=== PATIENT | male | born 1955 | race Caucasian/White ===

== ENCOUNTER 2020-12-25 09:26 | Outpatient (NON) | payer BC, SELFPAY ==
[2020-12-25 18:27] LABS: SARS-CoV-2 RNA PCR Negative
== END 2020-12-25 09:27 ==
PROVIDERS: Family Provider Physician Assistant; PCP Physician Assistant; Visit Provider Physician Assistant
DX: Z20.822 Contact with and (suspected) exposure to COVID-19 (principal); R43.2 Parageusia
CPT/HCPCS: C9803; U0003; U0005

== ENCOUNTER 2020-12-29 08:40 | Outpatient (CLI) | payer BC, SELFPAY ==
--- NOTE | 2021-01-22 17:24 | WPDHOMESLEEP ---
Sleep Study - Home Unattended Date of Study: 12/29/20 Ordering Provider: Garfield Cunha, TREVON Interpreting Provider: Ara Carbajal MD Home Sleep Study Type: Apnea Link Air Height: 1.88 m Weight: 106.594 kg Body Mass Index: 30.2 [place]: 17 Reason for Sleep Study Hypersomnolence Sleep History Will Woodward is a 65-year-old man who dozes off at work. He falls asleep at home during the day. 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 This excessive sleepiness has been going on for 1-2 years. He has a difficult time waking in the morning. He had surgery for sleep apnea around 1987. He frequently snores and is frequently loud enough that others complain about it. He occasionally awakens at night with heartburn, belching or coughing, does not awaken from sleep feeling short of breath. He frequently has trouble sleeping with a cold. He does not wake up gasping for breath at night. He occasionally has breathing problems at night observed by others. He does not sweat excessively at night and does not notice his heart pounding or beating irregularly at night. He frequently falls asleep during the day, frequently involuntarily but never while driving. He does not fall asleep during physical effort. He does not have loss of muscle tone was strong emotion. He occasionally has daytime difficulties due to his excessive sleepiness. He does not feel paralyzed on waking or falling asleep. He does not have vivid dreamlike scenes upon awakening or falling asleep. He does not feel afraid to go to sleep. He rarely has nightmares. He occasionally remembers his dreams. He does not have racing thoughts. He does not feel sad or depressed. He rarely has anxiety. He does not have muscular tension. He does not notice parts of his body jerking. He does not kick at night. He frequently has crawling and aching feelings in his legs which he attributes to his neuropathy. He occasionally has leg pain at night. He does not have morning jaw pain. He does not grind his teeth during sleep. He occasionally has bothered by pain during the day, occasionally is awakened by pain at night. He frequently wakes up feeling stiff in the morning, occasionally with sore achy muscles occasionally with pain in the neck and spine. He has fatigue, sexual problems, memory problems, nightmares, headaches and he takes antacids regularly. He reports 25 lb weight gain in the last year. His normal bedtime is 9:00 p.m. falling asleep quickly waking once at night to urinate. He wakes in the morning at 4:10 a.m.. On weekends he goes to bed later, 10:00 p.m. and wakes between 830 and 9:00 a.m.. He estimates 6 hours of sleep on most nights. He does take naps in the afternoon or evening. A short nap may not be refreshing. He rarely awakens feeling refreshed. Habits: Never smoked; no caffeine, does not drink alcohol or use recreational drugs. [facility] Past Medical History Medical History (Updated 01/22/21 @ 17:47 by Ara Carbajal MD) Carpal tunnel syndrome on both sides Coronary artery sclerosis GERD (gastroesophageal reflux disease) History of umbilical hernia Hyperlipidemia Hypertension Lumbosacral radiculopathy Lung metastases from renal cell carcinoma, left lung wedge resection Obstructive sleep apnea (~12/2020) Peripheral neuropathic pain Renal cell carcinoma Varicose veins of lower extremity Surgical History Surgical History History of knee replacement History of nephrectomy, right History of thoracic surgery left lung, wedge resection Family History Family History (Updated 01/22/21 @ 17:37 by Ara Carbajal MD) Mother Carcinoma of colon age 84 Father Carcinoma of colon age 80 Social History Social History (Updated 01/22/21 @ 17:43 by Ara Carbajal MD) Smoking status: Never smoker Medications Medications: aspirin 81 mg a day tadalafil / Cial
[2021-01-22 17:48] VITALS: BMI 30.2
== END 2020-12-29 08:41 | disposition home or self-care (01) ==
LOC: ANHCSM 08:43
PROVIDERS: Family Provider Physician Assistant; PCP Physician Assistant; Visit Provider Physician Assistant
DX: G47.33 Obstructive sleep apnea (adult) (pediatric) (principal)
CPT/HCPCS: 95806

== ENCOUNTER → 2021-02-16 02:16 | Outpatient (CLI) | payer BC, SELFPAY ==
[2021-02-16 19:28] LABS: SARS-CoV-2 RNA PCR Negative
== END ==
PROVIDERS: PCP Physician Assistant; Visit Provider Internal Medicine Critical Care Medicine
DX: Z01.812 Encounter for preprocedural laboratory examination (principal); Z20.822 Contact with and (suspected) exposure to COVID-19
CPT/HCPCS: C9803; U0003; U0005

== ENCOUNTER 2021-02-19 09:03 | Outpatient (CLI) | payer BC, SELFPAY ==
--- NOTE | 2021-03-05 10:33 | WPDSLEEPSTUD ---
Sleep Study Ordering Provider: Garfield Cunha, TREVON Interpreting Physician: Buddy Ayala MD Sleep Study Type: CPAP Titration Height: 1.88 m Weight: 104.326 kg Body Mass Index: 29.5 Neck Circumference (inches): 17 [place]: 15 Reason for Sleep Study Patient has had a prior home sleep study in December of 2020 which documented presence of severe obstructive sleep apnea. About 8% of the event's were central or mixed variety. Patient also had severe desaturations during the study. Therefore in lab CPAP titration was recommended. Sleep History Patient has history of loud snoring that is disruptive to others and he notices severe disabling daytime sleepiness. [facility] Past Medical History Medical History (Updated 01/22/21 @ 17:47 by Ara Carbajal MD) Carpal tunnel syndrome on both sides Coronary artery sclerosis GERD (gastroesophageal reflux disease) History of umbilical hernia Hyperlipidemia Hypertension Lumbosacral radiculopathy Lung metastases from renal cell carcinoma, left lung wedge resection Obstructive sleep apnea (~12/2020) Peripheral neuropathic pain Renal cell carcinoma Varicose veins of lower extremity Surgical History Surgical History History of knee replacement History of nephrectomy, right History of thoracic surgery left lung, wedge resection Family History Family History (Updated 01/22/21 @ 17:37 by Ara Carbajal MD) Mother Carcinoma of colon age 84 Father Carcinoma of colon age 80 Social History Social History (Updated 01/22/21 @ 17:43 by Ara Carbajal MD) Smoking status: Never smoker Sleep Procedure Patient underwent an overnight polysomnographic evaluation for the purpose of CPAP titration. Patient used Res Zigswitch air fit F-20 full face mask of medium size. Sleep Architecture total recording time 391 minutes, total sleep time 297 minutes, sleep efficiency 75.9%. Sleep latency 17 minutes, there was no REM sleep in this study. Awake after sleep onset 77.5 minutes, stage N1 10.9%, N2 89.1%, stage N3 and stage R 0%. Supine sleep 81%. Respiratory Analysis CMS criteria used During titration patient had 1 obstructive apnea with index 0.2, there were 13 hypopneas with index 2.6. AHI 2.8. supine events 3.5, nonsupine events 0. Arousals Total arousals 94 with index 14.4. Spontaneous arousals 78, limb movement arousals 7, snores arousals 7 and hypopnea arousals 2. Periodic Limb Movements Two hundred six leg movements with index 41.6. However only 7 were associated with arousal so that the arousal index is 1.1 which is not significant. There were no PLMS. Oximetry Data Mean oxygen saturation 90.2%, lowest saturation 83% .SaO2<90%-52.7Min, SaO2<88%-6.4Min. Snoring Profile Intermittent snoring noted. Cardiac Profile Normal sinus rhythm with average heart rate 61 beats per minute. Range 39 to 147 beats per minute. EEG Profile Unremarkable EEG. 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 CPAP was started at 5 cm and was increased to a maximum level of 9 cm. At CPAP of 9 cm - 2 hours and 53 minutes of trial was performed, 1 hour and 51 minutes of non-REM sleep occurred,approximately half of it was in supine position. There was no REM sleep. The sleep efficiency was 64%. Patient had 2 hypopneas with apnea-hypopnea index of 1.1. Average saturation was 90.3%, lowest saturation was 86%. 0.7 minutes of sleep occurred with saturation of 88% or below. The lack of REM sleep during this study is of concern since on many occasions sleep disorder is worse during REM sleep. Recommendation- we would recommend using CPAP in a auto titrating mode with a range of 9-15 cm. Hopefully this will eliminate any obstructive events that may occur during REM sleep. Other stephanie
[2021-03-05 10:53] VITALS: BMI 29.5
== END 2021-02-19 09:04 | disposition home or self-care (01) ==
LOC: ANHCSM 09:04
PROVIDERS: PCP Physician Assistant; Visit Provider Physician Assistant
DX: G47.33 Obstructive sleep apnea (adult) (pediatric) (principal)
CPT/HCPCS: 95811

== ENCOUNTER → 2021-11-06 03:33 | Outpatient (CLI) | payer BC, SELFPAY ==
[2021-11-06 20:27] LABS: SARS-CoV-2 RNA PCR Negative
== END ==
PROVIDERS: PCP Physician Assistant; Visit Provider Physician Assistant
DX: R68.89 Other general symptoms and signs (principal); Z20.822 Contact with and (suspected) exposure to COVID-19
CPT/HCPCS: C9803; U0003; U0005

== ENCOUNTER → 2021-12-15 02:40 | Outpatient (CLI) | payer BC, SELFPAY ==
[2021-12-16 15:56] LABS: SARS-CoV-2 RNA PCR Negative
== END ==
PROVIDERS: PCP Physician Assistant; Visit Provider Physician Assistant
DX: R43.2 Parageusia (principal); Z20.822 Contact with and (suspected) exposure to COVID-19
CPT/HCPCS: C9803; U0003; U0005

== ENCOUNTER 2022-11-08 01:30 | Day surgery (SDC) | payer BC, SELFPAY ==
[2022-09-06 13:27] VITALS: BMI 29.5
[2022-11-01 14:06] VITALS: BMI 29.5
[2022-11-08 08:14] VITALS: BP 137/69; PULSE 56; RESP 17; TEMP 36.4; O2SAT 98; BMI 28.6
[2022-11-08] MEDS: LACTATED RINGERS 1,000 ML 150 ML IV CONT (08:24)
--- NOTE | 2022-11-08 08:41 | PM.HPGS ---
History of Present Illness History of Present Illness Consent: Risks, benefits, and alternatives have been discussed and questions answered. Patient agrees to proceed with procedure. Chief complaint: family hx colon ca, neoplasm screening Narrative: Will Woodward is a 67 year old male Presents for screening colonoscopy. Patient's mother and father both have had colon cancer. Patient reports his current weight appetite bowel movements are normal. He denies abdominal pain. He has had no bleeding. Does notice a bump that has developed at his anal area. Review of Systems Review of Systems: Review of systems noncontributory. [facility] Past Medical History Medical History (Updated 11/08/22 @ 08:43 by Orlin Pearson MD) Carpal tunnel syndrome on both sides Coronary artery sclerosis GERD (gastroesophageal reflux disease) History of umbilical hernia Hyperlipidemia Hypertension Lumbosacral radiculopathy Lung metastases from renal cell carcinoma, left lung wedge resection Obstructive sleep apnea (~12/2020) Peripheral neuropathic pain Renal cell carcinoma Varicose veins of lower extremity Surgical History Surgical History History of knee replacement History of nephrectomy, right History of thoracic surgery left lung, wedge resection Family History Family History (Updated 01/22/21 @ 17:37 by Ara Carbajal MD) Mother Carcinoma of colon age 84 Father Carcinoma of colon age 80 Social History Social History (Updated 01/22/21 @ 17:43 by Ara Carbajal MD) Smoking status: Never smoker Substance use type: does not use Living arrangements: with family Spiritual care concerns: No Meds Home Medications and Allergies Home Medications Medication Instructions Recorded Confirmed Type sodium,potassium,mag sulfates 17.5 See Rx Instructions PO .COMPLEX 08/20/22 11/01/22 Rx gram-3.13 gram-1.6 gram oral soln #354 mL (Suprep Bowel Prep Kit) Adult One Daily Multivitamin 1 tablet PO HS 09/06/22 11/01/22 History amlodipine 5 mg tablet 5 mg PO DAILY 09/06/22 11/01/22 History aspirin 81 mg tablet 81 mg PO DAILY 09/06/22 11/01/22 History duloxetine 30 mg capsule,delayed 30 mg PO BID 09/06/22 11/01/22 History release gabapentin 300 mg capsule 900 mg PO TID 09/06/22 11/01/22 History hydrochlorothiazide 25 mg tablet 25 mg PO DAILY 09/06/22 11/01/22 History melatonin 5 mg tablet 5 mg PO HS PRN Insomnia 09/06/22 11/01/22 History metoprolol tartrate 50 mg tablet 50 mg PO BID 09/06/22 11/01/22 History pantoprazole 20 mg tablet,delayed 20 mg PO BID 09/06/22 11/01/22 History release rosuvastatin 20 mg tablet 20 mg PO EVERY OTHER DAY 09/06/22 11/01/22 History rosuvastatin 40 mg tablet 40 mg PO EVERY OTHER DAY 09/06/22 11/01/22 History tadalafil 5 mg tablet 5 mg PO DAILY PRN other 09/06/22 11/01/22 History vitamin B complex 1 tablet PO HS 09/06/22 11/01/22 History Allergies Allergy/AdvReac Type Severity Reaction Status Date / Time No Known Allergies Allergy Mild Verified 11/01/22 14:06 Vital Signs Vital Signs - 24 hr 11/08/22 08:14 Temperature 97.6 F Pulse Rate 56 L Respiratory Rate 17 Blood Pressure 137/69 Pulse Oximetry 98 Oxygen Delivery Room Air Exam Narrative: Physical exam reveals patient to be alert. Vital signs stable. HEENT exam is unremarkable. Patient is anicteric. Lungs are clear to auscultation and percussion. Heart is without murmur or extra sounds. Abdomen bowel sounds are present soft nontender with no organomegaly. Digital external rectal exam is normal. Assessment and Plan Assessment and plan (1) Family hx of colon cancer: Code(s): Z80.0 - Family history of malignant neoplasm of digestive organs Status: Acute Assessment and Plan: Patient has a family history of colon cancer in both mother and father. Plan is for colonoscopy now and
--- NOTE | 2022-11-08 08:41 | WPDANESEPPF ---
Anes - Initial Pre Proc Eval Procedure: Operation Date: 11/08/22 09:00 Proposed Procedures p Screening Colonoscopy - Orlin Pearson MD Date/Time: 11/08/22 08:41 Surgeon: Orlin Pearson MD Pre Op Diagnosis: family hx colon ca, neoplasm screening Patient Data Age: 67 Gender: M Height: 1.88 m Weight: 101.2 kg Last Vital Signs Temp 97.6 F 11/08/22 08:14 Pulse 56 L 11/08/22 08:14 Resp 17 11/08/22 08:14 BP 137/69 11/08/22 08:14 Pulse Ox 98 11/08/22 08:14 O2 Del Method Room Air 11/08/22 08:14 Allergies Allergy/AdvReac Type Severity Reaction Status Date / Time No Known Allergies Allergy Mild Verified 11/01/22 14:06 Home Medications Medication Instructions Recorded Confirmed Type sodium,potassium,mag sulfates 17.5 See Rx Instructions PO .COMPLEX 08/20/22 11/01/22 Rx gram-3.13 gram-1.6 gram oral soln #354 mL (Suprep Bowel Prep Kit) Adult One Daily Multivitamin 1 tablet PO HS 09/06/22 11/01/22 History amlodipine 5 mg tablet 5 mg PO DAILY 09/06/22 11/01/22 History aspirin 81 mg tablet 81 mg PO DAILY 09/06/22 11/01/22 History duloxetine 30 mg capsule,delayed 30 mg PO BID 09/06/22 11/01/22 History release gabapentin 300 mg capsule 900 mg PO TID 09/06/22 11/01/22 History hydrochlorothiazide 25 mg tablet 25 mg PO DAILY 09/06/22 11/01/22 History melatonin 5 mg tablet 5 mg PO HS PRN Insomnia 09/06/22 11/01/22 History metoprolol tartrate 50 mg tablet 50 mg PO BID 09/06/22 11/01/22 History pantoprazole 20 mg tablet,delayed 20 mg PO BID 09/06/22 11/01/22 History release rosuvastatin 20 mg tablet 20 mg PO EVERY OTHER DAY 09/06/22 11/01/22 History rosuvastatin 40 mg tablet 40 mg PO EVERY OTHER DAY 09/06/22 11/01/22 History tadalafil 5 mg tablet 5 mg PO DAILY PRN other 09/06/22 11/01/22 History vitamin B complex 1 tablet PO HS 09/06/22 11/01/22 History Patient hx anesthesia problems: none Family hx anesthesia problems: none Results Review: All pre-operative results and documents have been reviewed as part of the pre-operative evaluation. [facility] Past Medical History Medical History (Updated 01/22/21 @ 17:47 by Ara Carbajal MD) Carpal tunnel syndrome on both sides Coronary artery sclerosis GERD (gastroesophageal reflux disease) History of umbilical hernia Hyperlipidemia Hypertension Lumbosacral radiculopathy Lung metastases from renal cell carcinoma, left lung wedge resection Obstructive sleep apnea (~12/2020) Peripheral neuropathic pain Renal cell carcinoma Varicose veins of lower extremity Surgical History Surgical History History of knee replacement History of nephrectomy, right History of thoracic surgery left lung, wedge resection Family History Family History (Updated 01/22/21 @ 17:37 by Ara Carbajal MD) Mother Carcinoma of colon age 84 Father Carcinoma of colon age 80 Social History Social History (Updated 01/22/21 @ 17:43 by Ara Carbajal MD) Smoking status: Never smoker Substance use type: does not use Living arrangements: with family Spiritual care concerns: No Anes - Eval Final PreProcedure Day of Procedure 11/08/22 08:41 Patient weight: normal Heart: regular rate and rhythm Lungs: clear to auscultation Airway: Mallampati scale class II Neurological: alert and oriented Last oral intake: >/= 8 hours ASA classification: III Emergent: no Anesthetic plan: proceed Anesthesia type and monitoring: general GIVS and standard monitoring Results Review: All pre-operative results and documents have been reviewed as part of the pre-operative evaluation. Informed Consent: The patient's anesthetic plan and its attendant risks and benefits were discussed with the patient/family/POA. Questions were solicited and answers provided to the satisfaction of the patient/family/POA.
[2022-11-08 09:17] VITALS: BP 106/66; PULSE 67; RESP 18; O2SAT 97
[2022-11-08 09:27] VITALS: BP 116/90; PULSE 62; RESP 18; O2SAT 96
[2022-11-08 09:37] VITALS: BP 131/74; PULSE 61; RESP 20; O2SAT 98
== END 2022-11-08 09:47 | disposition home or self-care (01) ==
PROVIDERS: PCP Physician Assistant; Visit Provider Internal Medicine Gastroenterology
PROC: 0DJD8ZZ Inspection of Lower Intestinal Tract, Via Natural or Artificial Opening Endoscopic (ICD-10-PCS; CPT 45378; principal; 2022-11-08 09:00)
DX: Z12.11 Encounter for screening for malignant neoplasm of colon (principal); D12.2 Benign neoplasm of ascending colon; D12.4 Benign neoplasm of descending colon; K64.8 Other hemorrhoids; Z80.0 Family history of malignant neoplasm of digestive organs; K21.9 Gastro-esophageal reflux disease without esophagitis; E78.5 Hyperlipidemia, unspecified; I10 Essential (primary) hypertension; I25.10 Atherosclerotic heart disease of native coronary artery without angina pectoris; C78.00 Secondary malignant neoplasm of unspecified lung; C64.9 Malignant neoplasm of unspecified kidney, except renal pelvis
CPT/HCPCS: 45385; 88305; J2370; J2704; J7120

== ENCOUNTER 2024-09-01 14:51 | Outpatient (CLI) | payer MEDICARE, SELFPAY ==
--- NOTE | ~2024-09-01 | XR_ITS ---
EXAMINATION: XR hand LT min 3V DATE: 09/01/2024 15:09 INDICATION: Trigger finger, left middle finger. TECHNIQUE: 3 views of left hand were obtained. COMPARISON: None. FINDINGS: There is hyperextension of fifth distal interphalangeal joint. No fracture. There is severe osteoarthritis of first carpometacarpal joint and first-third metacarpophalangeal joints. There is m ild osteoarthritis of many of the interphalangeal joints. IMPRESSION: 1. Polyarticular osteoarthritis. Reviewed, dictated and finalized at location A.
== END 2024-09-01 14:52 | disposition home or self-care (01) ==
LOC: ANHIMG 14:56
PROVIDERS: PCP Physician Assistant; Visit Provider Plastic Surgery
DX: M65.332 Trigger finger, left middle finger (principal); M19.042 Primary osteoarthritis, left hand
CPT/HCPCS: 73130

== ENCOUNTER 2025-03-15 11:45 | Outpatient (CLI) | payer MEDICARE, SELFPAY ==
[2025-03-15 12:30] LABS: Basophils Absolute Auto 0.1 K/mm3 (0.0-0.1); Basophils Percent Auto 0.9 % (0.2-1.2); Eosinophils Absolute Auto 0.2 K/mm3 (0-0.3); Eosinophils Percent Auto 3.2 % (0-4.4); Hematocrit 41.8 % (42.0-52.0); Hemoglobin 13.9 g/dL (14.0-18.0); Immature Granulocyte Absolute 0.03 K/mm3 (0.00-0.031); Immature Granulocyte Percent A 0.5 % (0-0.5); Lymphocytes Absolute Auto 1.39 K/mm3 (0.9-3.2); Lymphocytes Percent Auto 24.7 % (18.3-44.2); Mean Corpuscular HGB Conc 33.3 g/dl (32-36); Mean Corpuscular Hemoglobin 31.7 pg (26-34); Mean Corpuscular Volume 95.2 fl (80-100); Mean Platelet Volume 9.9 fl (7.4-10.4); Monocytes Absolute Auto 0.7 K/mm3 (0.1-0.6); Monocytes Percent Auto 12.3 % (2.6-8.5); Neutrophils Absolute Auto 3.3 K/mm3 (1.3-6.7); Neutrophils Percent Auto 58.4 % (45.5-73.1); Platelet Count Result 183 k/mm3 (150-375); Red Blood Count 4.39 M/mm3 (4.6-6.20); Red Cell Distribution Width 12.3 % (11.5-14.5); White Blood Count 5.6 K/mm3 (4.5-10.0)
[2025-03-15 12:41] LABS: Hemoglobin A1C 6.4 % (<5.7)
[2025-03-15 12:47] LABS: Alanine Aminotransferase 21 U/L (6-50); Albumin Level 4.5 g/dL (3.5-5.1); Alkaline Phosphatase 107 U/L (38-126); Anion Gap 9 mmol/L (4-12); Aspartate Amino Transferase 29 U/L (17-59); Bilirubin,Total 0.7 mg/dL (0.2-1.3); Blood Urea Nitrogen 22 mg/dL (9-20); Calcium 9.1 mg/dL (8.4-10.2); Carbon Dioxide 27 mmol/L (22-30); Chloride 105 mmol/L (98-107); Estimated Glomerular Filt Rate 45; Glucose 117 mg/dL (65-110); Potassium 4.3 mmol/L (3.4-5.0); Sodium 141 mmol/L (137-145)
--- OUTSIDE RECORDS SUMMARY | 2025-03-15 13:00 | XMS_ITS | Clinical Summary ---
Author Organization [facility] Address [address] [place] [address] Care Team Providers Care Fisher Trawl Line Name Role Phone [facility] Pr ovider Source Comments [facility],non-owned Affiliates and Associated Physician Practices is amultiple site organization consisting of ambulatory clinics and hospital sitesin [place], [place], [place] and [place]. This disclosure is being madepursuant to the Care Everywhere program and may not contain all information available regarding this patient. Last updated 18.[facility] b3 bio Social History Tobacco Use Types Packs/Day Years Used Date Smoking Tobacco: Never Assessed Sex and Gender Information Value Date Recorded Sex Assigned at Not on file Legal Sex Male 8:18 AM CDT Gender Identity Not on file Sexual Orientation Not on file Plan of Treatment Health Maintenance Due Date Last Done Comments COLOGUARD (AGES 45-75) - COL ON CA SCREENING 1953 COLON MONITORING 1953 COLONOSCOPY - COLON CA SCREENING 1953 CT COLONOGRAPHY - COLON CA SCREENING 1953 Colorectal Cancer Screening 1953 FIT - COLON CA SCREENING 1953 FLEX SIG - COLON CA SCREENING 1953 LIPID TESTING 1953 MEDICARE AWV 12 MONTHS 1953 HEPATITIS C SCREENING 01/04/1971 DTAP/TDAP/TD VACCINES (1 - Tdap) 1972 PNEUMOCOCCAL VACCINE 50+ (1 of 1 - PCV) 2003 ZOSTER VACCINE (1 of 2) 2003 COVID-19 VACCINE (1 - 2023-2 5 season) 2024 DEPRESSION SCREENING 12/01/2024 INFLUENZA VACCINE (Season Ended) 2025 Respiratory Syncytial Virus (RSV) Vaccine Pt: or over 60 yrs (1 - 1-dose 75+ series) 2028 HEPATITIS B VACCINE Aged Out No longe r eligible based on patient's age to complete this topic HIB VACCINE Aged Out No longer eligi ble based on patient's age to complete this topic HPV VACCINE Aged Out No longer eligi ble based on patient's age to complete this topic MENINGOCOCCAL (Group B) VACC INE SHARED DECISION-MAKING Aged Out No longer eligibl e based on patient's age to complete this topic MENINGOCOCCAL GROUPS A/C/Y/W VACCINE Aged Out No longer eligible b ased on patient's age to complete this topic Insurance MEDICARE [facility] Care Teams Fisher Trawl Line Relationship Specialty Start Date End Date [place] [address] [place] [address] PCP - General 11/20/22
--- OUTSIDE RECORDS SUMMARY | 2025-03-15 13:00 | XMS_ITS | Data Portability ---
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 goetz. Not available 05/07/2024 10:01:56 11/05/2024 11/05/2024 Colonoscopy screening at [facility], dr. goetz. Not available 11/05/2024 10:40:15 Plan of Treatment Reminders Order Date Submit Date Provider Last Modified By Organization Details Last Modified Time Details Appointments ANY 15 2024 09:30A M ELLIOT Suarez Not available Not available Not available Lab HbA1c (hemoglob in A1c), blood 2023 025 [facility], [address] , [place], [address], 03/01/2025 09:10:45 BMP, serum or plasma 2023 025 [facility], [address], [place], [address], 03/01/2025 09:10:45 CBC w/ auto diff 2023 025 [facility], [address] , [place], [address], 03/01/2025 09:10:45 hepatic function panel, serum 2023 025 [facility], [address], [place], [address], 03/01/2025 09:10:45 HbA1c (hemoglob in A1c), blood 2023 024 ERIC [facility], [address], [place], [address], 06/22/2024 16:24:05 BMP, serum or plasma 2023 024 [email or web address] [facility], [address], [place], [address], 06/22/2024 16:48:05 CBC w/ auto diff 2023 024 [email or web address] [facility], [address], [place], [address], 07/09/2024 12:00:59 hepatic function panel, serum 2023 024 [email or web address] [facility], [address], [place], [address], 07/09/2024 12:00:59 vitamin B12 + folate, serum or blood 2023 024 [email or web address], [address], [place], [address], 06/22/2024 16:48:05 TSH + free T4, serum 2023 024 [email or web address], [address] [facility], [place], [address], 06/22/2024 16:48:05 Referral urologist referral 2023 024 [email or web address], [address] [place] [address], [address], 03/01/2025 15:49:46 Procedures None recorded. Surgeries None recorded. Imaging None recorded. Medication Orders None recorded. Patient TargetsNo targets recorded. Patient Instructions Encounter Date Encounter Id Patient Instructions Last Modified By Organization Details Last Modified Time 09/08/2024 [id number] A healthy lifestyle: care instructions Not available 09/08/2024 10:45:19 Reason for Referral Urologist Referral for Incre ased frequency of urination Referring Physician: Park Guzmán, Internal Medicine, Encounter Date: 11/05/2024 Results Created Date Observation Date Name Description Value Unit Range Abnormal Flag Note LastModifiedBy Organization Detail LastModifiedTime 09/01/2009/01/2024 Lipid 1996 panel - Serum or Plasm a cholesterol [mass/volume ] in serum or plasma 91 text: <200 mg/dL KESHAV STERO L 91 <200 MG/DL 09/01 10:34 AM CDT [facility] Not Available Not Available 02/11/2025 08:50:43 09/01/2009/01/2024 Lipid 1996 panel - Serum or Plasm a triglyceride [mass/volume ] in serum or plasma 60 text: <150 mg/dL TRIGL YCERI GM 60 <150 MG/DL 09/01 10:34 AM [facility] Not Available Not Available 02/11/2025 08:50:43 09/01/2009/01/2024 Lipid 1996 panel - Serum or Plasm a cholesterol in HDL [mass/volume ] in serum or plasma 43 text: >40.0 mg/dL HDL 43 >40.0 MG/DL 09/01 10:34 AM CDT [facility] Not Available Not Available 02/11/2025 08:50:43 09/01/2009/01/2024 Lipid 1996 panel - Serum or Plasm a cholesterol in LDL [mass/volume ] in serum or plasma by calculation 36 text: <100 mg/dL LDL (CALC ULATE D) 36 <100 MG/DL 09/01 10:34 AM CD[facility] Not Available Not Available 02/11/2025 08:50:43 09/01/2009/01/2024 Lipid 1996 panel - Serum or Plasm a cholesterol non HDL [mass/volume ] in serum or plasma 48 text: <130 mg/dL NON HDL KESHAV STERO L 48 <130 MG/DL 09/01 10:34 AM CDT [facility] Not Available Not Available 02/11/2025 08:50:43 09/01/20 24 09/01/2024 Lipid 1996 panel - Serum or Plasm a cholesterol. total/choles terol in HDL [mass ratio] in serum or plasma 2.1 low: 0high: 4.5 CHOL/ HDL RATIO 2.1 0.0 - 4.5 09/01 10:34 AM CDT [facility] Not Available Not Available 02/11/2025 08:50:43 09/01/2009/01/2024 Lipid 1996 panel - Serum or Plasm a cholesterol in VLDL [mass/volume ] in serum or plasma by calculation 12 text: 5 - 55 mg/dL VLDL CALCU LATIO N 12 5 - 55 MG/DL 09/01 10:34 AM CDT [facility] Not Available Not Available 02/11/2025 08:50:43 09/01/20 24 09/01/2024 Lipid 1996 panel - Serum or Plasm a service comment LIPID INTER PRETA TION 09/01 10:34 AM CDT [facility] Not Available Not Available 02/11/2025 08:50:43 09/02/20 24 09/01/2024 XR, hand No observ ation record ed. [email or web address] [place] [address] [address], [place], [address], 09/02/2024 14:10:49 11/01/2010/25/2024 PFT, compl ete No observ ation record ed. [facility] - Neurology 3 [facility] [address], [place], [address], 11/26/2024 09:45:26 Result Notes None recorded. Problems Name Problem SNOMED Code Status Onset Date Resolution Date Notes Provider Name and Address Organization Details Recorded Time Long-term drug therapy Active 2023 ELLIOT Suarez Attn: Gissell cordero,[address] [facility], [place], [place], [address] [place] [address] 2, [facility] - SI 4 09:42:01 History of cancer metastatic to lung 7939786339959 105 Active 2023 ELLIOT Suarez Attn: Gissell cordero,[address] [place], [place], [address] [place] [address] 2, [facility] - [facility]IF 4 09:42:01 Family history of renal cell carcinoma 470835336 Active 2023 ELLIOT Suarez Attn: Gissell cordero,[address] [place], [place], [address] [place] [address] 2, [facility] - [facility] 4 09:42:02 Mixed anxiety and depressive disorder 384143548 Active 2023 ELLIOT Suarez Attn: Gissell cordero,[address] [place], [address] [place] [address] 2, [facility] - [facility] 4 09:42:03 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 009049630 Active 2023 ELLIOT Suarez Attn: Gissell cordero,[address] [place], [address] [place] [address] 2, [facility] - S[facility] 4 09:42:04 Gastroesoph ageal reflux disease without esophagitis 768123638 Active 2023 ELLIOT Suarez Attn: Gissell cordero,[address] [place], [address] [place] [address], [place] - [facility] 4 09:42:06 Hyperlipide jaqueline 05705923 Active 2023 ELLIOT Suarez Attn: Gissell cordero,[address] [place], [address] [place] [address] 2, [facility] - S[facility] 4 09:42:06 Benign essential hypertensio n 8798468 Active 2023 ELLIOT Suarez Attn: Accountin g,[address] [facility], [place], [address], [place] - [facility] 4 09:42:08 Obstructive sleep apnea syndrome 94197116 Active 2023 ELLIOT Suarez Attn: Accountin g,[address] [facility], [place], [address], [place] [facility] 4 09:56:27 Body mass index 25-29 - overweight 467388700 Active 2023 ELLIOT Suarez Attn: Accountin g,[address] [facility], [place], [address], [place] [facility] 4 10:02:10 Blood glucose outside reference range 576190788 Active 2023 ELLIOT Suarez Attn: Accountin g,[address] [facility], [place], [address], [place] [facility] 4 17:03:47 Chronic low back pain 383807365 Active 2023 ELLIOT Suarez Attn: Accountin g,[address] [facility], [place], [address], [place] [facility] 4 17:04:34 Chronic neck pain 5054165448178 Active 2023 ELLIOT Suarez Attn: Accountin g,[address] [facility], [place], [address], [place] [facility] 4 17:04:43 Type 2 diabetes mellitus without complicatio n 530524862 Active 2023 ELLIOT Suarez Attn: Accountin g,[address] [facility], [place], [address], [place] [facility] 4 13:37:20 Overweight 281463645 Active 2023 ELLIOT Suarez Attn: Accountin g,[address] [facility], [place], [address], [place] [facility] 4 13:37:22 History of malignant neoplasm of kidney 651671689 Active 2023 ELLIOT Suarez Attn: Gissell cordero,[address] [facility], [place], [address], [facility] - SI 4 10:29:28 Increased frequency of urination 346898920 Active 2023 ELLIOT Suarez Attn: Gissell cordero,[address] [facility], [place], [address], [facility] - SI 10:31:22 Problem Notes None recorded. Procedures Surgical History Date Name Laterality Status Provider Name and Address Organization Details Recorded Time Arthroscopic Surgery completed Cassandra Looney MA [facility] 05/07/2024 10:29:21 Hernia Repair completed Cassandra Looney MA [facility] 05/07/2024 10:29:26 Joint Replacement completed Cassandra Looney MA [facility] 05/07/2024 10:29:31 Knee Surgery completed Cassandra Looney MA [facility] 05/07/2024 10:29:36 Imaging Results Imaging Date Name Status LastModified by Organiz ation Details LastModified Time 09/01/2024 [facility] [address] [facility] [address], [place], [address], 09/02/2024 14:10:49 10/25/2024 PFT, complete completed [facility] - Neurology [address] [place] [address] [address], [address], 11/26/2024 09:45:26 Procedure Notes None recorded. Medical Equipment None Reported. Allergies No known drug allergies Medications Name Sig Start Date Stop Date Status Note LastModified by Organization Details LastModified Time nystatin 100,000 unit/mL oral suspension SWISH AND SWALLOW 5 ML BY MOUTH FOUR TIMES DAILY FOR 14 DAYS 05/07 completed Not Available Not Available Not Available oxybutynin chloride ER 15 mg tablet,exte nded release 24 hr TAKE 1 TABLET BY MOUTH DAILY 2023 active Not Available Not Available Not Avai lable gabapentin 600 mg tablet TAKE 1 TABLET BY MOUTH THREE TIMES DAILY 2024 active Not Available Not Available Not Avai lable benzonatate 200 mg capsule TAKE 1 CAPSULE BY MOUTH THREE TIMES DAILY 05/07 completed Not Available Not Available Not Available metoprolol succinate ER 50 mg tablet,exte nded release 24 hr TAKE 1 TABLET BY MOUTH ONCE DAILY active Not Available Not Available No t Available prednisone 20 mg tablet TAKE 2 TABLETS BY MOUTH EVERY DAY FOR 5 DAYS 05/07 completed Not Available Not Available Not Available oxycodone 5 mg/5 mL oral solution 05/07 completed Not Available Not Available Not Available pantoprazol e 20 mg tablet,theresa yed release TAKE 1 TABLET BY MOUTH TWICE DAILY 2024 active Not Available Not Available Not Avai lable amoxicillin 875 mg tablet TAKE 1 TABLET BY MOUTH TWICE DAILY FOR 10 DAYS 09/08 completed Not Available Not Available Not Available amlodipine 10 mg tablet TAKE 1 TABLET BY MOUTH EVERY DAY active Not Available Not Available No t Available gabapentin 300 mg capsule TAKE 1 CAPSULE BY MOUTH THREE TIMES DAILY 2024 active Not Available Not Available Not Avai lable codeine 10 mg-guaifene sin 100 mg/5 mL oral liquid TAKE 10 ML BY MOUTH EVERY 6 TO 8 HOURS NEEDED 05/07 completed Not Available Not Available Not Available mupirocin 2 % topical ointment APPLY OINTMENT EXTERNALL Y TWICE DAILY TO LEFT EAR CANAL LACERATIO N FOR 10 DAYS 05/07 completed Not Available Not Available Not Available methylpredn isolone 4 mg tablets in a dose pack FOLLOW PACKAGE DIRECTION S 05/07 completed Not Available Not Available Not Available albuterol sulfate HFA 90 mcg/actuati on aerosol inhaler INHALE 2 PUFFS INTO THE LUNGS EVERY 4 HOURS NEEDED FOR WHEEZING OR SHORTNESS OF BREATH 05/07 completed Not Available Not Available Not Available SSD 1 % topical cream APPLY TOPICALLY TO THE AFFECTED AREA TWICE DAILY FOR 10 DAYS 09/08 completed Not Available Not Available Not Available fluticasone propionate 50 mcg/actuati on nasal spray,suspe nsion SHAKE LIQUID AND USE 1 SPRAY IN EACH NOSTRIL TWICE DAILY 09/08 completed Not Available Not Available Not Available oxycodone 5 mg tablet TAKE 1 TABLET BY MOUTH EVERY 4 HOURS NEEDED FOR PAIN 05/07 completed Not Available Not Available Not Available Children's Ibuprofen 100 mg/5 mL oral suspension 05/07 completed Not Available Not Available Not Available rosuvastati n 40 mg tablet TAKE 1 TABLET BY MOUTH NIGHTLY AT BEDTIME active Not Available Not Available No t Available alfuzosin ER 10 mg tablet,exte nded release 24 hr 11/05 completed Not Available Not Available Not Available tadalafil 5 mg tablet TAKE 1 TABLET BY MOUTH EVERY DAY 05/07 completed Not Available Not Available Not Available tadalafil 20 mg tablet TAKE 1 TABLET BY MOUTH ONCE DAILY NEEDED FOR ERECTILE DYSFUNCTI ON active Not Available Not Available No t Available duloxetine 30 mg capsule,del ayed release One tab p.o. daily 2024 active Not Available Not Available Not Avai lable M-PAP 160 mg/5 mL oral liquid TAKE 31ML BY MOUTH EVERY 6 HOURS NEEDED FOR PAIN. 05/07 completed Not Available Not Available Not Available Gemtesa 75 mg tablet 11/05 completed Not Available Not Available Not Available aspirin 81 mg capsule Take 1 capsule every day by oral route. active Not Available Not Available No t Available Vitals Date Recorded Body height Body mass index (BMI) Body weight Respiratory rate Oxygen saturation Oxygen saturation in Arterial blood by Pulse oximetry Heart rate Systolic blood pressure Diastolic blood pressure Provider Name and Address Organization Details Last Updated DateTime 4 187.96 cm 29.8 kg/m2 416702. 87 g 20 /min 96 % 96 % 72 /min 128 mm[Hg] 82 mm[Hg] Cassandra Looney MA [facility] 4 09:36:29 Date Recorded Systolic blood pressure Diastolic blood pressure Provider Name and Address Organization Details Last Updated DateTime 05/07/2024 130 mm[Hg] 80 mm[Hg] ELLIOT Suarez Attn: Accounting,[address] [facility], [place], [address], [facility] 05/07/2024 10:12:25 Date Recorded Body height Body mass index (BMI) Body weight Respiratory rate Oxygen saturation Oxygen saturation in Arterial blood by Pulse oximetry Heart rate Systolic blood pressure Diastolic blood pressure Systolic blood pressure Diastolic blood pressure Provider Name and Address Organization Details Last Updated DateTime 187.96 cm 27.2 kg/m2 53012.5 8 g 20 /min 96 % 96 % 72 /min 142 mm[Hg] 82 mm[Hg] 126 mm[Hg] 72 mm[Hg] Cassandra Looney MA [facility] 10:17:30 Date Recorded Systolic blood pressure Diastolic blood pressure Provider Name and Address Organization Details Last Updated DateTime 09/08/2024 120 mm[Hg] 80 mm[Hg] ELLIOT Suarez Attn: Accounting, [place], [address], [facility] 09/08/2024 10:44:23 Date Recorded Body height Body mass index (BMI) Body weight Heart rate Oxygen saturation Oxygen saturation in Arterial blood by Pulse oximetry Systolic blood pressure Diastolic blood pressure Provider Name and Address Organization Details Last Updated DateTime 187.96 cm 26.6 kg/m2 45633.4 2 g 61 /min 95 % 95 % 108 mm[Hg] 62 mm[Hg] Angelic Raya MA [facility] 10:08:45 Date Recorded Respiratory rate Systolic blood pressure Diastolic blood pressure Provider Name and Address Organization Details Last Updated DateTime 11/05/2024 18 /min 120 mm[Hg] 80 mm[Hg] ELLIOT Suarez Attn: Accounting, [address] [place], [address], [facility] 11/05/2024 10:36:36 Social History Question Answer Notes LastModified by Organizat ion Details LastModified Time Tobacco Smoking Status Never Smoker Cassandra Looney MA null, [facility] 05/07/2024 09:34:16 Do You Have An Advance Directive? No Information not available 05/07/2024 What Is Your Level Of Alcohol Consumption? None Information not available 05/07/2024 Are You Blind Or Do You Have Difficulty Seeing? No Glasses Information not available 05/07/2024 What Is Your Level Of Caffeine Consumption? None Information not available 05/07/2024 In The 14 Days Before Symptom Onset, Have You Had Close Contact With A Laboratory-confir med COVID-19 While That Case Was Ill? No Information not available 05/06/2024 In The 14 Days Before Symptom Onset, Have You Had Close Contact With A Person Who Is Under Investigation For COVID-19 While That Person Was Ill? No Information not available 05/06/2024 Have You Been To An Area Known To Be High Risk For COVID-19? No Information not available 05/06/2024 Are You Deaf Or Do You Have Serious Difficulty Hearing? No Hearing Aids Information not available 05/07/2024 What Type Of Diet Are You Following? REGULAR Information not available 05/07/2024 Are There Any Guns Present In Your Home? No Information not available 05/07/2024 What Was The Date Of Your Most Recent Tobacco Screening? 11/05/2024 Information not available 11/05/2024 Do You Use Your Seat Belt Or Car Seat Routinely? Yes Information not available 05/06/2024 Do You Have Smoke And Carbon Monoxide Detectors In Your Home? Yes Information not available 05/06/2024 Do You Feel Stressed (tense, Restless, Nervous, Or Anxious, Or Unable To Sleep At Night)? [id number] Information not available 09/08/2024 Do You Use Any Illicit Or Recreational Drugs? No Information not available 05/07/2024 Do You Use Sunscreen Routinely? No Information not available 09/08/2024 Has Tobacco Cessation Counseling Been Provided? No Information not available 11/05/2024 On What Date Was Tobacco Cessation Counseling Provided? 11/05/2024 Information not available 11/05/2024 Do You Or Have You Ever Used Any Other Forms Of Tobacco Or Nicotine? No Information not available 05/07/2024 Sex: Male Functional Status Question Answer Note LastModified by Organization D etails LastModified Time Are you able to care for yourself? Yes Information n ot available 05/06/2024 What is your exercise level? None Information not available 05/07/2024 Mental Status None recorded. Family History Relationship Description Onset Age of this Age Resolved Age Notes LastModified by Organization Details LastModified Time Sister Malignant tumor of breast [email or web address] Not available 2023 10:28:14 Sister Malignant tumor of ovary tcarterma Not available 2023 10:28:34 Mother Malignant tumor of colon tcarterma Not available 2023 10:28:22 Mother Diabetes mellitus [email or web address] Not available 2023 10:28:29 Father Malignant tumor of colon tcarterma Not available 2023 10:28:22 Medical History Condition Response Coronary Artery Disease Y Other N Atrial Fibrillation N High Blood Pressure Y Kidney or Bladder Problems N Thyroid Problems N GI Problems N Depression N COPD N Blood Clots Y Skin Problems N Anemia N Heart Attack ([place]) N Anxiety Disorder N Diabetes N Muscle, Joint, or Bone Problems N Seizures/Epilepsy N Acid Reflux (GERD) Y Cancer Y Stroke N Asthma N Allergies N High Cholesterol Y Hepatitis N Liver Disease N Headaches N Heart Failure N Osteoporosis N Immunizations Vaccine Type Date Status Note Provider Nam e and Address Organization Details Recorded Time Influenza, MDCK, quadrivalent, PF 12/02/2017 completed [place] [facility] 09/07/2024 17:05:54 zoster recombinant 12/03/2021 [place] [facility] 09/07/2024 17:05:54 Influenza, high-dose, quadrivalent, PF 12/31/2023 [place] [facility] 09/07/2024 17:05:54 Influenza, high-dose, quadrivalent, PF 11/17/2021 [place] [facility] 09/07/2024 17:05:54 Influenza, adjuvanted, quadrivalent, PF 09/03/2020 [place] [facility] 09/07/2024 17:05:54 COVID-19, mRNA, LNP-S, PF, 100 mcg/0.5mL dose or 50 mcg/0.25mL dose 01/12/2021 [place] [facility] 09/07/2024 17:05:54 COVID-19, mRNA, LNP-S, PF, 100 mcg/0.5mL dose or 50 mcg/0.25mL dose 02/09/2021 completed CONNIE [place] [facility] 09/07/2024 17:05:54 COVID-19, mRNA, LNP-S, PF, 100 mcg/0.5mL dose or 50 mcg/0.25mL dose 11/17/2021 [place] [facility] 09/07/2024 17:05:54 Influenza, split virus, trivalent, PF 10/26/2015 completed CONNIE [place] [facility] 09/07/2024 17:05:54 Past Encounters Encounter ID Performer Location Encounter Start Date Encounter Closed Date Diagnosis/Indication Diagnosis SNOMED-CT Code Diagnosis ICD10 Code Diagnosis Note [id number] ELLIOT Suarez [facility] [place] [address] [place] [address] 05/07/2024 09:21:11 05/07/2024 10:16:56 Benign essential hypertension 6888296 I10 stable on amlodipine 10mg daily Hyperlipidemia 63823036 E78.5 lipid panel ordered through cardiologi st on rosuvastat in 40mg daily. Gastroesop hageal reflux disease without esophagitis 269662976 K21.9 stable on pantoprazo le 20mg bid. 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 it helps but not enough. Mixed anxi ety and depressive disorder 786458835 F41.8 stable on duloxetine 30mg daily. History of cancer metastatic to lung 4626834825 631120 Z85.118 hx noted from renal cell mets Long-term drug therapy 100116881 Z79.899 all routine labs are due Obstructiv e sleep apnea syndrome 50110581 G47.33 stable on cpap therapy. Chronic low back pain 27 9369616 M54.50 no acute changes. has pain management . Chronic neck pain 184610 2320 107 M54.2 no acute changes. sees pain management . Body mass index 25-29 - overweight 647310991 Z68.29 Blood gluc ose outside reference range 839342943 R73.09 following a1c with slight elevation in a1c in hx. History of malignant neoplasm of kidney 665275952 Z85.528 hx noted [id number] ELLIOT Suarez [facility] [employer] [address] [place] [address] 09/08/2024 09:59:33 09/08/2024 12:49:39 Body mass index 25-29 - overweight 234709429 Z68.29 BMI has dropped to 27.2 with terrific weight loss and dietary changes Overweight 060375094 E66 .3 Keep up the great efforts with lifestyle modificati ons Long-term drug therapy 151203105 Z79.899 Repeat CBC BMP and liver panel in March. Type 2 jo ann betes mellitus without complication 586154574 E11.9 6.6% A1c on recent labs. Patient has achieved improvemen t in his A1c just by dietary modificati ons lower carbohydra te and low sugars. He can continue this treatment route and repeat labs in March. Blood gluc ose outside reference range 632309190 R73.09 following a1c with slight elevation in a1c in hx. [id number] ELLIOT Suarez [facility] [employer] [address] [place] [address] 11/05/2024 09:55:10 11/05/2024 10:55:14 Body mass index 25-29 - overweight 717140519 Z68.26 bmi 26.6 Benign ess ential hypertension 5368535 I10 stable on amlodipine 10mg daily Hyperlipidemia 20547169 E78.5 lipid panel ordered through cardiologi st. on rosuvastat in 40mg daily. Gastroesop hageal reflux disease without esophagitis 295260361 K21.9 stable on pantoprazo le 20mg bid. 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 it helps but not enough. Mixed anxi ety and depressive disorder 544871745 F41.8 stable on duloxetine 30mg daily. Obstructiv e sleep apnea syndrome 78455582 G47.33 hasn't been using cpap since december. he can't fight the mask any longer. wants [facility] but going through extensive process to see if he is candidate. may have laryngocel e and he will see specialist for that soon. History of malignant neoplasm of kidney 980172099 Z85.528 hx noted History of cancer metastatic to lung [id number] Z85.118 hx noted from renal cell mets Chronic low back pain [id number] M54.50 no acute changes. Chronic neck pain [id number] M54.2 no acute changes. Long-term drug therapy [id number] Z79.899 All labs are up-to-date Increased frequency of urination [id number] R35.0 We will refer to urology for evaluation with persistent increased frequency of urination. Health Concerns Section Related Observation LastModified by Organization Detai ls LastModified Time None Recorded Concern Status LastModified by Organization Details LastModified Time None Recorded Advance Directives Directive N: Payers Encounter Date Sequence Insurance Name Policy Number Policy Cheung Covered Member ID Cheung Member ID Guarantor Name 05/07/2024 1 [place] Will Woodward [id number] [facility] 05/07/2024 2 [employer] (MEDICARE SUPPLEMENT) Will [id number] [facility] 09/08/2024 1 [place] Will Woodward [id number] [facility] 09/08/2024 2 [employer] (MEDICARE SUPPLEMENT) Will [id number] [facility] 11/05/2024 2 [employer] (MEDICARE SUPPLEMENT) Will [id number] [facility] 11/05/2024 [place] - [facility] - [facility] Will Woodward [id number] [facility] Notes Date Note Type Note Provider Name and Address Organization Details Recorded Time 05/07/2024 text/html Anxiety/Depressi onRepor phani bypatient.Notes:stable on low dose duloxetine 30mg daily.HyperlipidemiaRep orted bypatient.Notes:taking rosuvastatin 40mg daily.HypertensionRepor phani bypatient.Notes:stable on amlodipine 10mg dailyObstructive Sleep Apnea F/UReported bypatient.Notes:has had ENT surgery to help correct issues that are factoring in sleep apnea issues. He is not wearing cpap mask currently. He will get another sleep study. Dr. 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 Dr. Argueta is Derm specialist to remove more skin cancer on nose area. June 09, seeing Dr. Parks of Urology to check patient for erectile issues and function. June 11: Dr. Coats [facility] --seeing him with c/o nocturia, having some incontinence issues and leakage and cannot get there in time. Hx of renal cell cancer with mets to the lungs that is all currently stable with recent CT scans. 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 left hemidiaphragm paralysis- seeing dr. Isaiah Holden at [facility] pulmonary-- ordering another PFT Nov.01. this may be contributing to worsening hypoventilation issues indefinitely. ELLIOT Suarez Attn: Accounting,[address] [facility], [place], [address], [facility] 05/30/2024 17:05:23 09/08/2024 text/html Patient is here to follow up primarily on his diabetes new diagnosis. He has made significant changes in lowering carbohydrates and sugar in his diet to treat his early diabetes. He has lost quite a bit of weight and is feeling terrific overall. He is here to review labs specifically related to his diabetes. ELLIOT Suarez Attn: Accounting,[address] [facility], [place], [address], [facility] 10/01/2024 13:37:42 11/05/2024 text/html Anxiety/Depressi onRepor phani bypatient.Notes:stable on low dose duloxetine 30mg daily.HyperlipidemiaRep orted bypatient.Notes:taking rosuvastatin 40mg daily.HypertensionRepor phani bypatient.Notes:stable on amlodipine 10mg dailyObstructive Sleep Apnea F/UReported bypatient.Notes:has had ENT surgery to help correct issues that are factoring in sleep apnea issues. He is not wearing cpap mask currently. He will get another sleep study. Dr. 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 Dr[address] Argueta is Derm specialist to remove more skin cancer on nose area. June 11: started seeing Dr. Coats [facility] --seeing him with c/o nocturia, having some incontinence issues and leakage Hx of renal cell cancer with mets to the lungs that is all currently stable with recent CT scans. 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 left hemidiaphragm paralysis- seeing dr. Isaiah Holden at [facility] pulmonary-- PFT Nov.01. ELLIOT Suarez Attn: Accounting,[address] [facility], [place], [address], [facility] 11/26/2024 09:47:35
--- OUTSIDE RECORDS SUMMARY | 2025-03-15 13:00 | XMS_ITS ---
Author Organization [facility] Address [address] [place] [address] Care Team Providers Care University Tutor Name Role Phone [facility] Pr ovider Jose Guadalupe Sweeney MD Unavailable [phone] Active Problems Problem Noted Date Diagnosed Date Velopharyngeal insufficiency, acquired Obstructive sleep apnea 02/13/2024 IDALMIS (obstructive sleep apnea) 09/26/2023 Paroxysmal ventricular tachycardia 01/17/2023 Assessment & Plan (01/17/2023 10:16 AM VAMP PRESSER): On the event monitor patient had 2 episodes of nonsustained V-tach and maximum being 9 beats. At that time patient asymptomatic. Electrolytes normal. Recent cardiac catheterization did not show any significant coronary disease. His LV function normal. Given that his risk for sudden is low. Advised him to contact me if he has any palpitations. Syncope and collapse 11/28/2022 Assessment & Plan (01/17/2023 10:17 AM VAMP PRESSER): No further syncope noted. It appears that he had vasovagal reaction. I reviewed the event monitor results with him. One time he mentioned about syncope the monitor but patient denied any syncope. At the time of the notification rhythm is normal Abdominal pain 11/28/2022 Nausea 11/28/2022 Ileus 11/28/[address] of the abdomen 11/28/2022 SOB (shortness of breath) on exertion 11/28/2022 Degeneration of cervical intervertebral disc 01/2022 Costovertebral angle tenderness 09/02/2022 Carpal tunnel syndrome 09/02/2022 Blood in urine 09/02/2022 Serum creatinine raised 09/02/2022 Peripheral neuropathic pain 09/02/2022 Painless hematuria 09/02/2022 Varicose veins of lower extremity 09/02/2022 Sensorineural hearing loss (SNHL) of both ears 0 08/02/2022 Tinnitus of both ears 08/02/2022 Essential hypertension, benign 04/19/2022 Assessment & Plan (01/17/2023 10:17 AM VAMP PRESSER): Blood pressure is well controlled. Continue low-salt diet which I discussed with him. Continue amlodipine and metoprolol. Mixed hyperlipidemia 10/19/2021 Assessment & Plan (01/17/2023 10:17 AM VAMP PRESSER): Lipid panel looks good along with LFTs. Continue Crestor and heart healthy diet which I discussed with patient. I will check his Chem 12, magnesium and lipids prior to next appointment. Lumbosacral radiculopathy 09/06/2021 Obstructive sleep apnea syndrome 05/18/2021 Orthostatic dizziness 11/10/2020 Gastroesophageal reflux disease without esophagi tis 07/14/2020 Overview (07/14/2020): Added automatically from request for surgery [id number] Dysphagia 07/14/2020 Overview (07/14/2020): Added automatically from request for surgery [id number] Gastric ulcer 07/14/2020 Overview (07/14/2020): Added automatically from request for surgery [id number] Oropharyngeal dysphagia 07/14/2020 Overview (07/14/2020): Added automatically from request for surgery [id number] GERD (gastroesophageal reflux disease) 0 Bilateral lower extremity edema 11/05/2019 Venous insufficiency 10/01/2019 Overview (10/01/2019): Added automatically from request for surgery [id number] Precordial chest pain 03/12/2019 Metastatic carcinoma to lung, left 07/28/2018 Malignant (primary) neoplasm, unspecified 2017 Polyneuropathy in diseases classified elsewhere 12/19/2017 Erectile disorder due to medical condition in ma le 07/18/2017 Disorder of cardiac function 05/14/2017 Cardiomyopathy 05/02/2017 Overview (09/02/2022): At [facility] his echo showed a visually estimated ejection fraction around 40-45%. Renal carcinoma, right 04/14/2017 Cancer Staging:Clinical:Stage IV(cTX, cNX, cM1) - Signed by Raul Franco MD on 02/21/2020 Malignant neoplasm of right kidney, except renal pelvis 04/11/2017 Neck pain 01/14/2017 Surgical follow-up care 01/14/2017 Obesity with body mass index 30 or greater 12/26 Multiple pulmonary nodules 12/23/2016 CAD (coronary artery disease) 07/10/2016 Assessment & Plan (01/17/2023 10:18 AM VAMP PRESSER): No clinical angina noted. Continue aspirin. Encouraged him to continue his walking. Advised him to contact me if he has any symptoms. History of hypertension 07/10/2016 Syncope 07/10/2016 Renal mass 05/23/2016 Current Treatment and Therapy Plans No current plan information found. Past Treatment and Therapy Plans No past plan information found. Radiation Treatments * Course C1__[id number] 03/06/2020 - 03/10/2020 Treatment Period Energy Fraction Dose Fractions Total Dose Plans Planned SBRT MEDIA_LN 03/06/2020 - 03/10/2020 700 5 / 3,500 Reference Points Delivered [id number] 03/06/2020 - 03/10/2020 3,500 Lifetime Dose Tracking * Chemical Lifetime Dose Automatic Entry Manual Entr y Fluoro Time 10.918 minutes 10.918 minutes 0 minutes Air kerma at the reference point (Ka,r) 1,622.66 mGy 1 45.66 mGy 1,477 mGy DLP 16,955 mGycm 16,955 mGycm 0 mGycm Resolved Problems Problem Noted Date Diagnosed Date Resolved Date Dyslipidemia 03/12/2019 10/19/2021 Essential hypertension 03/12/201904/19
--- OUTSIDE RECORDS SUMMARY | 2025-03-15 13:00 | XMS_ITS | Clinical Summary ---
Author Organization [facility] Address [facility] [place] [address] Care Team Providers Care Casting Machine Set Up Operator Name Role Phone Park Cunha Primary Care Provider [phone] Allergies Active Allergy Reactions Criticality Noted Date Comments Cefuroxime Other (see comment) Low 03/12/2019 CDiff per pt Hydromorphone GI Upset Low 02/16/2015 Stomach/GI Upset Medications Acetaminophen 500 MG Cap acetaminophen Activ e Multiple Vitamins-Mine rals (MULTIVITAMIN ADULTS 50+) Tab One A Day Vitamin takes daily Active B Complex Vitamins (VITAMIN B COMPLEX OR) Take 1 Dose by mouth daily. Active aspirin EC (ECOTRIN) 81 MG tablet daily. Active DULoxetine 30 MG capsule duloxetine 30 mg capsule,delayed release TAKE 1 CAPSULE BY MOUTH ONCE DAILY IN THE MORNING 03/26/20 21 Active gabapentin (NEURONTIN) 300 MG capsule Take 1 capsule (300 mg total) by mouth 3 (three) times daily. With the 600 mg TID Active pantoprazole EC 20 MG tablet pantoprazole 20 mg tablet,delayed release TAKE 1 TABLET BY MOUTH TWICE DAILY 04/05/20 21 Active tadalafil 5 MG tablet tadalafil 5 mg tablet TAKE 1 TABLET BY MOUTH ONCE DAILY Active melatonin 5 MG tablet Take 1 tablet (5 mg total) by mouth nightly as needed. Active gabapentin (NEURONTIN) 600 MG tablet Take 1 tablet (600 mg total) by mouth 3 (three) times daily. Along with the 300 mg to equal 900 mg TID 11/02/20 23 Active metoprolol succinate ER (TOPROL-XL) 50 MG 24 hr tabletIndicat ions:Coronary artery disease involving chilkoot coronary artery of chilkoot heart without angina pectoris TAKE 1 TABLET(50 MG) BY MOUTH DAILY 90 tablet 01/11/20 25 Active rosuvastatin (CRESTOR) 40 MG tabletIndicat ions:Coronary artery disease involving chilkoot coronary artery of chilkoot heart without angina pectoris,Hype rlipidemia, mixed TAKE 1 TABLET(40 MG) BY MOUTH EVERY NIGHT AT BEDTIME 90 tablet 01/25/20 25 Active amLODIPine (NORVASC) 10 MG tablet TAKE 1 TABLET BY MOUTH EVERY DAY 90 tablet 02/22/20 25 Active amLODIPine (NORVASC) 10 MG tablet TAKE 1 TABLET BY MOUTH EVERY DAY 90 tablet 11/23/20 24 025 Discontinued Active Problems Problem Noted Date Diagnosed Date Restrictive lung disease 11/03/2023 Diaphragm paralysis 05/08/2023 Abnormal finding on lung imaging 05/08/2023 Diastolic dysfunction 05/08/2023 Edema of lower extremity 03/20/2023 Heartburn 03/07/2023 Overview (03/07/2023): Added automatically from request for surgery [id number] Renal cell carcinoma ([facility]) 3 Coronary arteriosclerosis 01/23/2023 Paroxysmal ventricular tachycardia ([facility]) 01/17/2023 Overview (01/23/2023): Last Assessment & Plan: On the event monitor patient had 2 episodes of nonsustained V-tach and maximum being 9 beats. At that time patient asymptomatic. Electrolytes normal. Recent cardiac catheterization did not show any significant coronary disease. His LV function normal. Given that his risk for sudden is low. Advised him to contact me if he has any palpitations. SOB (shortness of breath) on exertion 11/28/2022 Peripheral neuropathic pain 09/02/2022 Varicose veins of lower extremity 09/02/2022 Type II diabetes mellitus, w ell controlled ([facility]) 05/17/2022 Essential hypertension, benign 04/19/2022 Overview (01/23/2023): Last Assessment & Plan: Blood pressure is well controlled. Continue low-salt diet which I discussed with him. Continue amlodipine and metoprolol. Mixed hyperlipidemia 10/19/2021 Overview (01/23/2023): Last Assessment & Plan: Lipid panel looks good along with LFTs. Continue Crestor and heart healthy diet which I discussed with patient. I will check his Chem 12, magnesium and lipids prior to next appointment. Lumbar radiculopathy 09/06/2021 IDALMIS on CPAP 05/18/2021 Oropharyngeal dysphagia 07/14/2020 Overview (01/23/2023): Added automatically from request for surgery [id number] Dysphagia 07/14/2020 Overview (01/23/2023): Added automatically from request for surgery [id number] Bilateral lower extremity edema 11/05/2019 Venous insufficiency 10/01/2019 Overview (01/23/2023): Added automatically from request for surgery [id number] Precordial chest pain 03/12/2019 Polyneuropathy in diseases classified elsewhere ([facility]) 12/19/2017 Disorder of cardiac function 05/14/2017 Cardiomyopathy ([facility]) 05/02/2017 Overview (01/23/2023): At [facility] his echo showed a visually estimated ejection fraction around 40-45%. History of hypertension 07/10/2016 Syncope and collapse 07/10/2016 Overview (01/23/2023): Last Assessment & Plan: No further syncope noted. It appears that he had vasovagal reaction. I reviewed the event monitor results with him. One time he mentioned about syncope the monitor but patient denied any syncope. At the time of the notification rhythm is normal Immunizations Immunization Administration Dates Next Due COVID-19 Vaccine (Generic) 01/29/2021 Flucelvax 6 Months+ (Prefilled Syringe) 12/02/19 18 Fluzone High Dose - >Age 65 (Prefilled Syringe) 09/03/2020 Influenza (Generic) 01/02/2017,10/26/2015,2014 Influenza Adult (Generic) 12/31/2023 MODERNA COVID-19 (12+) MRNA, LNP-S, PF, 100 MCG/ 0.5 ML DOSE 02/09/2021,01/12/2021 Family History Medical History Relation Comments Heart Disease Brother Colon Cancer Father Stroke Father Colon Cancer Mother Heart Disease Mother Open Heart Mother Cancer Sister 1 Relation Status Comments Brother Alive Father (Age 80) Mother (Age 83) Sister 1 Alive 3 sisters with c ancer Sister 2 Alive Social History Tobacco Use Types Packs/Day Years Used Date Smoking Tobacco: Never Smokeless Tobacco: Never Tobacco Cessation:Counseling Given: Yes Alcohol Use Standard Drinks/Week Comments Yes 0 (1 standard drink = 0.6 oz pur e alcohol) socially PHQ-2 Answer Date Recorded Patient Health Questionnaire-2 Score 0 03/07/2023 Education Answer Date Recorded What is the highest level of school you have completed or the highest degree you have received? 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 Not on file Not on fi le Last Filed Vital Signs Vital Sign Reading Time Taken Comments Blood Pressure 122/72 11/15/2024 5:00 PM DISTRIBUTOR SALES MANAGER Pulse 79 11/15/2024 5:00 PM DISTRIBUTOR SALES MANAGER Temperature 36.6 C (97.8 F) 11/15/2024 5:00 PM DISTRIBUTOR SALES MANAGER Respiratory Rate 18 11/15/2024 5:00 PM DISTRIBUTOR SALES MANAGER Oxygen Saturation 95% 11/15/2024 5:00 PM DISTRIBUTOR SALES MANAGER Inhaled Oxygen Concentration - - Weight 90.7 kg (200 lb) 11/15/2024 5:00 PM DISTRIBUTOR SALES MANAGER Height 188 cm (6' 2 ) 11/15/2024 5:00 PM DISTRIBUTOR SALES MANAGER Body Mass Index 25.68 11/15/2024 5:00 PM DISTRIBUTOR SALES MANAGER Plan of Treatment Upcoming Encounters Date Type Department Care Team (Late st Contact Info) Description 03/22/2025 10:15 AM CDT [facility] [address] [place] [address] Nayan Rao MD [facility] [place] [address] 11/02/2025 9:20 AM DISTRIBUTOR SALES MANAGER Office Visit [facility] [address] [facility] [place] [address] [facility] [address] [place] [address] Health Maintenance Due Date Last Done Comments Colorectal Cancer Screening Colonoscopy (10 Years) 1953 Kidney Health Evaluation 1955 Pneumococcal Vaccine: 50+ Years (1 of 2 - PCV) 1959 Diabetes: Retinopathy Eye Exam 1971 Hepatitis C 1971 DTaP, Tdap and Td Vaccines (1 - Tdap) 1972 RSV Immunization or 60+ Years (1 - Risk 60-74 years 1-dose series) 2013 Annual Medicare Wellness Visit 2018 Zoster Vaccines (2 of 2) 01/28/2022 12/03/2021 Hemoglobin A1C 09/17/2023 03/18/2023, 11/2 05/2022, 04/13/2022, Additional history exists COVID-19 Vaccine ( season) 2024 11/17/2021, 02/09/2021, 01/29/2021, Additional history exists PHQ-2 (Physician Saxman) 12/01/2024 Lipid Panel 09/01/2025 09/01/2024, 03/01, 10/26/2022 AAA SCREENING Completed 10/15/2024, 10/01, 04/16/2024, Additional history exists Meningococcal B Vaccine Aged Out No l onger eligible based on patient's age to complete this topic Meningococcal Vaccine Aged Out No byron aj eligible based on patient's age to complete this topic RSV Immunizations Under 20 Months Aged Out No longer eligible based on patient's age to complete this topic Procedures Procedure Name Priority Date/Time Associated Diagnosis Comments LIPID PANEL Routine 09/01/2024 9:29 AM CDT Hyperlipidemia, mixed HEMOGLOBIN, GLYCOSYLATED Routine 03/18/2023 11:01 AM CDT Diabetes mellitus type II, controlled, with no complications CTA CHEST STAT 07/31/2021 8:07 AM CDT from Last 3 Months or Most Recently Relevant to Health Maintenance Results * LIPID PANEL (09/01/2024 9:29 AM CDT) CHOLESTEROL 91 <200 MG/DL 09/01/2024 10:34 AM CDT [facility] TRIGLYCERIDES 60 <150 MG/DL 09/01/2024 10:34 AM CDT [facility] HDL 43 >40.0 MG/DL 09/01/2024 10:34 AM CDT [facility] LDL (CALCULATED) 36 <100 MG/DL 09/01/20 10:34 AM CDT [facility] NON HDL CHOLESTEROL 48 <130 MG/DL 09/01 10:34 AM CDT [facility] CHOL/HDL RATIO 2.1 0.0 - 4.5 09/01/2024 10:34 AM CDT [facility] VLDL CALCULATION 12 5 - 55 MG/DL 09/01/2024 10:34 AM CDT [facility] LIPID INTERPRETATION 09/01/2024 10:34 AM CDT [facility] Comment: NIH CONCENSUS REPORT RECOMMENDATIONS: ADULT CHILD LOW RISK: CHOLESTEROL <200 <170 TRIGLYCERIDE <150 --- HDL >=60 --- LDL <100 <110 BORDERLINE: CHOLESTEROL 200-239 170-199 TRIGLYCERIDE 150-199 --- HDL 40-59 --- LDL 100-159 110-129 HIGH RISK: CHOLESTEROL >=240 >=200 TRIGLYCERIDE >=200 --- HDL <40 --- LDL >=160 >=130 09/01/2024 9:29 AM CDT Nayan Rao MD LABORATORY Final Resul t [facility] [address] [place] [address], [place] [phone] * (ABNORMAL) HEMOGLOBIN, GLYCOSYLATED (03/18/2023 11:01 AM CDT) HGB A1C 6.9(H) <5.7 % 03/18/2023 11:25 AM CDT [facility] Comment: ADA GUIDELINES 2010 5.7 TO 6.4% INCREASED RISK OF DIABETES > OR = 6.5% CONSISTENT WITH DIABETES ESTIMATED AVG GLUCOSE 151 mg/dL 03/18/2023 11:25 AM CDT [facility] 03/18/2023 11:0 1 AM CDT [facility] Final Result [facility] [address] [place] [address], [place] [phone] * CTA CHEST (07/31/2021 8:07 AM CDT) Anatomical Region Laterality Modality Chest Computed Tomogra phy 07/31/2021 8:16 AM CDT Impressions 07/31/2021 8:35 AM CDT IMPRESSION: 1. No appreciable pulmonary embolus. 2. Chronic lung disease. Atelectasis and scarring most prominent in the right lower lobe. 3. 12 mm hypodense hepatic lesion. Refer to discussion above. 4. Mildly enlarged 13 mm diameter AP window lymph node. Referred By: GUCCI CORDOVA Interpreted By: Juan Manuel Daley, 07/31/2021 8:16 AM Narrative 07/31/2021 8:35 AM CDT IMAGING STUDIES: CTA CHEST DATE: 07/31/2021 7:49 AM HISTORY: PE suspected, low/intermediate prob, positive D-dimer 66-year-old male with right leg cramping, nausea, diaphoresis, and near syncopal episode. History of metastatic lung cancer, congestive heart failure, diabetes, and hypertension. COMPARISON: Chest portable 07/31/2021 at approximately 0535 hours. DISCUSSION: CTA chest following intravenous administration 80 ml Isovue 370 contrast. Coronal and sagittal reconstructions. Automated exposure control with radiation dose reduction techniques used. Cardiovascular: Heart size normal. No pericardial effusion. Coronary atherosclerotic calcification. No aortic aneurysm or dissection. Ascending aorta approximately 3 cm diameter. Aortic atherosclerotic calcification. No apparent pulmonary embolus. Lymphatic: 13 mm diameter AP window lymph node on axial image 47. No pathologic axillary adenopathy. Pulmonary and Pleura: Lung interstitial thickening consistent with chronic disease. Atelectasis, lung parenchymal scarring, and pleural scarring most prominent in the right lower lobe and right lower chest. Dependent atelectasis in the posterior right upper lobe. Scarring in the lung apices. Scarring and/or subsegmental atelectasis in the lateral inferior lingula with associated pleural thickening. No pleural effusion or pneumothorax. Musculoskeletal: Degenerative changes spine, shoulders, clavicles, and sternum. No appreciable destructive skeletal lesion. Upper Abdomen: No acute abnormality in the upper abdomen. Approximately 12 mm hypodense left hepatic lesion as on axial image 107 and coronal image 48 is incompletely characterized. Given lack of additional hepatic hypodensities, benign etiology such as cyst is most likely. Small hiatal hernia. Procedure Note Juan Manuel Daley MD - 07/31/2021 IMAGING STUDIES: CTA CHESTDATE: 07/31/2021 7:49 AM HISTORY: PE suspected, low/intermediate prob, positive [id number] male with right leg cramping, nausea, diaphoresis, and nearsyncopal episode. History of metastatic lung cancer, congestive heartfailure, diabetes, and hypertension. COMPARISON: Chest portable 07/31/2021 at approximately 0535 hours. DISCUSSION: CTA chest following intravenous administration 80 ml Isovue 370 contrast.Coronal and sagittal reconstructions. Automated exposure control withradiation dose reduction techniques used. Cardiovascular: Heart size normal. No pericardial effusion. Coronaryatherosclerotic calcification. No aortic aneurysm or dissection. Ascending aorta approximately 3 cmdiameter. Aortic atherosclerotic calcification. No apparent pulmonary embolus. Lymphatic: 13 mm diameter AP window lymph node on axial image 47. Nopathologic axillary adenopathy. Pulmonary and Pleura: Lung interstitial thickening consistent with chronicdisease. Atelectasis, lung parenchymal scarring, and pleural scarring mostprominent in the right lower lobe and right lower chest. Dependentatelectasis in the posterior right upper lobe. Scarring in the lungapices. Scarring and/or subsegmental atelectasis in the lateral inferiorlingula with associated pleural thickening. No pleural effusion orpneumothorax. Musculoskeletal: Degenerative changes spine, shoulders, clavicles, andsternum. No appreciable destructive skeletal lesion. Upper Abdomen: No acute abnormality in the upper abdomen. Approximately 12mm hypodense left hepatic lesion as on axial image 107 and coronal image48 is incompletely characterized. Given lack of additional hepatichypodensities, benign etiology such as cyst is most likely. Small hiatal hernia. IMPRESSION: 1. No appreciable pulmonary embolus. 2. Chronic lung disease. Atelectasis and scarring most prominent in theright lower lobe. 3. 12 mm hypodense hepatic lesion. Refer to discussion above. 4. Mildly enlarged 13 mm diameter AP window lymph node. Referred By: GUCCI CORDOVA Interpreted By: Juan Manuel Daley, 07/31/2021 8:16 AM Gucci Cordova MD CT Final Result from Last 3 Months or Most Recently Relevant to Health Maintenance Insurance [facility] MEDICARE Care Teams Casting Machine Set Up Operator Relationship Specialty Start Date End Date Park Cunha PA [address] [place] [address] PCP - General PHYSICIAN TACTICAL DECEPTION PLANS OFFICER 09/06/21
--- OUTSIDE RECORDS SUMMARY | 2025-03-15 13:00 | XMS_ITS | Encounter Summary ---
Author Organization [facility] Address [address] [facility] [place] [address] Care Team Providers Care Bark Press Operator Name Role Phone Alex Crum MD Primary Care Provider [phone] Park Neff Primary Care Pr ovider Encounter Details Date Type Department Care Team (Late st Contact Info) Description 08/27/2022 Lab Requisition [facility] [address] [place] [address] Nick Morrison MD [address] [facility] [address] Social History Tobacco Use Types Packs/Day Years Used Date Smoking Tobacco: Never Assessed Sex and Gender Information Value Date Recorded Sex Assigned at Not on file Legal Sex Male 8:18 AM CDT Gender Identity Not on file Sexual Orientation Not on file documented as of this encounter Plan of Treatment Not on file documented as of this encounter Procedures Procedure Name Priority Date/Time Associated Diagnosis Comments DERMATOPATHOLOGY Routine 08/23/2022 12:0 0 AM CDT documented in this encounter Results * DERMATOPATHOLOGY (08/23/2022 12:00 AM CDT) Case Report Dermatopathology Report Case: [id number] Authorizing Provider: Nick Morrison MD Collected: 08/23/2022 12:00 AM Ordering Location: [facility] Received: 08/27/2022 08:54 AM Pathologist: Linda Jones MD Specimens: A) - Skin, left alar crease B) - Skin, right nose tip 1:00 PM [facility] Final Diagnosis Specimen A. SKIN, left alar crease: BASAL CELL CARCINOMA, NODULAR TYPE (C44.311) (see microscopic description) Specimen B. 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 BCCA path #[id number]. B:Dewey Hyperplatia path #[id number]. 1:00 PM [facility] Gross Description Specimen A: Received is one formalin filled container labeled with the patient's name and designated left alar crease. The specimen consists of a shave biopsy measuring 4x3x1 mm. Jar 0. Specimen B: Received is one formalin filled container labeled with the patient's name and designated right nose tip. The specimen consists of a shave biopsy measuring 4x3x1 mm. Jar 0. 1:00 PM [facility] Microscopic Description Specimen A. SKIN, left alar crease: Within the dermis there are aggregates of basaloid cells with a high nuclear to cytoplasmic ratio and peripheral palisading. Additional deeper sections were obtained and reviewed. Specimen B. SKIN, right nose tip: Sections show a lobular tumor composed of aggregates of epithelial cells extending from the epidermis into the dermis. The aggregates are composed of squamoid cells showing variable glycogen vacuolation (pale-staining cytoplasm). The inferior portion of the proliferation is strongly positive for CD34. Ki-67 immunohistochemical stain reveals a mildly elevated proliferative index in the proliferation. Additional deeper sections were obtained and reviewed. 1:00 PM [facility] Disclaimer An external and internal positive and negative controls are appropriate for the histochemical, immunohistochemical and immunofluorescence stain(s) in this case (if any), except where stated explicitly. The performance characteristics of the stain(s) cited in this report were developed and its performance characteristic determined by the Dermatopathology Laboratory at [facility], directed by Dr. Dann Florian. These tests need not be, and therefore are not, approved by the [place] Food and Drug Administration. The tests are used for clinical purposes. Billing Codes Specimen Charges Stain Charges 33208 12819 1 1 [id number] 1 1 2 1:00 PM CDT DERMATOPATHOLOGY LABORATORY Embedded Images 2 1:00 PM CDT DERMATOPATHOLOGY LABORATORY Pathology/Cytology TISSUE SPECIMEN FROM SKIN / Unknown 08/23/2022 08/27/2022 8:54 AM CDT Miscellaneous samples (specimen) TISSUE SPECIMEN FROM SKIN / Unknown 08/23/2022 08/27/2022 8:54 AM CDT Nick Morrison MD LAB - PATHOLOGY/CYTOLOGY ORDER LYNSEY Final Result DERMATOPATHOLOGY LABORATORY [facility] - Department of Dermatology [facility] Medicine [address] [place] [address], [address] [phone] documented in this encounter Visit Diagnoses Not on filedocumented in this encounter Care Teams Bark Press Operator Relationship Specialty Start Date End Date Alex Crum MD [address] [place] [id number] PCP - General 08/27/22 11/19/22 Park Neff PA [address] [place] [id number] PCP - General 11/20/22 documented as of this encounter
--- OUTSIDE RECORDS SUMMARY | 2025-03-15 13:00 | XMS_ITS | Referral Summary ---
Author Organization [facility] Address [address] [place] [address] Care Team Providers Care Bioinformatics Computer Scientist Name Role Phone Park Cunha Primary Care Pr ovider Jose Guadalupe Sweeney MD Unavailable [phone] Encounters Date Type Department Care Team Description 02/25/2025 10:20 AM CDT [facility] Visit [facility] - [facility] ENT [address] [place] [address] [place] [phone] Angelic Judd MD IDALMIS (obstructive sleep apnea) (Primary Dx); Intolerance of continuous positive airway pressure (CPAP) ventilation; S/P UPPP (uvulopalatopharyngop lasty); Insomnia, unspecified type; Nocturia more than twice per night 12/24/2024 10:00 AM 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 Office Visit [facility] ([facility]) - [facility] ENT [address] [place] [address] [place] [phone] Basim Garcia MD Laryngocele (Primary Dx) 12/15/2024 Telephone [facility] Oncology [address] [place] [phone] Liliana Mccall from Last 3 Months Allergies Active Allergy Reactions Criticality Noted Date Comments Cefuroxime Other (See comments) Low 03/12/2019 CDiff per pt Hydromorphone Stomach upset Low 02/16/2015 Stomach/GI Upset Medications gabapentin (NEURONTIN) 300 mg capsuleIndicatio ns:Neuropathic Pain Take 3 capsules (900 mg total) by mouth 3 (three) times a day 8 Active multivitamin tabletIndication s:Vitamin Deficiency Prevention Take 1 tablet by mouth nightly Active vit B complex 100 no.2/herbs (VITAMIN B COMPLEX 100 2-HERBS ORAL)Indications :supplement Take 1 Dose by mouth nightly Active DULoxetine DR (CYMBALTA) 30 mg capsuleIndicatio ns:Functional dysphagia Take 1 capsule (30 mg total) by mouth 2 (two) times a day Please contact our office with an update in 8 weeks. 60 capsule 2 1 Active Additional Information Patient taking differently:30 mg oral 2 times daily, Please contact our office with an update in 8 weeks.,Indications: Anxiety with Depression, Informant: Self, Reported on 10/01/[address] (PROTONIX) 20 mg EC tabletIndication s:Gastroesophage al reflux disease without esophagitis Take 1 tablet by mouth twice daily 60 tablet 1 Active melatonin 10 mg tablet,chewableI ndications:sleep Take 10 mg by mouth nightly Active metoprolol tartrate (LOPRESSOR) 50 mg immediate release tablet Take 1 tablet by mouth twice daily 180 tablet 3 Active rosuvastatin (CRESTOR) 40 mg tablet TAKE 1 TABLET BY MOUTH EVERY OTHER DAY WITH 20 MG TABLET 45 tablet 1 3 Active alfuzosin ER (UROXATRAL) 10 mg 24 hr tabletIndication s:Benign prostatic hyperplasia with nocturia Take 1 tablet (10 mg total) by mouth nightly 90 tablet 3 3 Active Additional Information Patient taking differently:10 mg oral Nightly,Indications: benign prostatic hyperplasia with lower urinary tract sx, Informant: Self, Reported on 10/18/2024 aspirin 81 mg enteric coated tabletIndication s:prevention of thrombosis Take 1 tablet (81 mg total) by mouth nightly 4 Active metoprolol XL (TOPROL-XL) 50 mg extended release tabletIndication s:hypertension Take 1 tablet (50 mg total) by mouth nightly 4 Active tadalafiL (CIALIS) 5 mg tabletIndication s:Erectile Dysfunction Take 1 tablet (5 mg total) by mouth daily as needed for erectile dysfunction 4 Active amLODIPine (NORVASC) 10 mg tabletIndication s:hypertension Take 1 tablet (10 mg total) by mouth nightly 4 Active acetaminophen (TYLENOL) 500 mg tabletIndication s:Pain Take 1 tablet (500 mg total) by mouth every 6 (six) hours as needed for pain Active gabapentin (NEURONTIN) 600 mg tablet Take 1 tablet (600 mg total) by mouth 3 (three) times a day 5 Active Active Problems Problem Noted Date Diagnosed Date Velopharyngeal insufficiency, acquired 4 Obstructive sleep apnea 02/13/2024 IDALMIS (obstructive sleep apnea) 09/26/2023 Paroxysmal ventricular tachycardia 01/17/2023 Assessment & Plan (01/17/2023 10:16 AM 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): On the event monitor patient had 2 [...] 11/28/2022 Assessment & Plan (01/17/2023 10:17 AM 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): No further syncope noted. It appears that [...] 04/19/2022 Assessment & Plan (01/17/2023 10:17 AM 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): Blood pressure is well controlled. Continue low-salt diet which I discussed with him. Continue amlodipine and metoprolol. Mixed hyperlipidemia 10/19/2021 Assessment & Plan (01/17/2023 10:17 AM 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): Lipid panel looks good along with LFTs. Continue Crestor and heart healthy diet which I discussed with patient. I will check his Chem 12, magnesium and lipids prior to next appointment. Lumbosacral radiculopathy 09/06/2021 Obstructive sleep apnea syndrome 05/18/2021 Orthostatic dizziness 11/10/2020 Gastroesophageal reflux disease without esophagi tis 07/14/2020 Overview (07/14/2020): Added automatically from request for surgery [id number] Dysphagia 07/14/2020 Overview (07/14/2020): Added automatically from request for surgery [id number] Gastric ulcer 07/14/2020 Overview (07/14/2020): Added automatically from request for surgery [id number] Oropharyngeal dysphagia 07/14/2020 Overview (07/14/2020): Added automatically from request for surgery [id number] GERD (gastroesophageal reflux disease) 0 Bilateral lower extremity edema 11/05/2019 Venous insufficiency 10/01/2019 Overview (10/01/2019): Added automatically from request for surgery [id number] Precordial chest pain 03/12/2019 Metastatic carcinoma to lung, left 07/28/2018 Malignant (primary) neoplasm, unspecified 2017 Polyneuropathy in diseases classified elsewhere 12/19/2017 Erectile disorder due to medical condition in ma le 07/18/2017 Disorder of cardiac function 05/14/2017 Cardiomyopathy 05/02/2017 Overview (09/02/2022): At [facility] his echo showed a visually estimated ejection [...] 07/10/2016 Assessment & Plan (01/17/2023 10:18 AM 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): No clinical angina noted. Continue aspirin. Encouraged him to continue his walking. Advised him to contact me if he has any symptoms. History of hypertension 07/10/2016 Syncope 07/10/2016 Renal mass 05/23/2016 Resolved Problems Problem Noted Date Diagnosed Date Resolved Date Dyslipidemia 03/12/2019 10/19/2021 Essential hypertension 03/12/201904/19 Immunizations Immunization Administration Dates Next Due Influenza, Quad, Adjuvantate d, Intramuscular 09/03/2020 Influenza, Quadrivalent, Hig h Dose, Preservative Free, Intrr 12/31/2023 Influenza, Trivalent, Cell C ulture-based MDCK, Preservative Free, Antibiotic Free, Intramuscular 12/02/2017 Influenza, Trivalent, Preser vative Free, Intramuscular 10/26/2015 Influenza, Unspecified 01/02/2017,10/26/2015,12/2014 Social History Tobacco Use Types Packs/Day Years Used Date Smoking Tobacco: Never Passive Smoke Exposure: Never Smokeless Tobacco: Never Tobacco Cessation:Counseling Given: Not Answered Alcohol Use Standard Drinks/Week Comments Not Currently 0 (1 standard drink = 0.6 oz pur e alcohol) rare AUDIT-C Answer Date Recorded Q1: How often do you have a drink containing alcohol? Never 04/07/2024 Q2: How many drinks containi ng alcohol do you have on a typical day when you are drinking? Patient does not drink Q3: How often do you have si x or more drinks on one occasion? Never 04/07/2024 PHQ-2 Answer Date Recorded PHQ-2 Score 0 07/22/2019 Personal Safety Answer Date Recorded Have you ever been in or are you currently in a harmful physical or emotional relationship or is someone making you feel afraid or unsafe? Denies 04/07/2024 Sex and Gender Information Value Date Recorded Sex Assigned at Not on file Legal Sex Male 2:33 AM 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 Gender Identity Male 09/19/2024 10:05 AM CDT Sexual Orientation Straight 09/19/2024 10 :05 AM CDT Last Filed Vital Signs Vital Sign Reading Time Taken Comments Blood Pressure 120/61 10/18/2024 9:28 AM 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 Pulse 63 10/18/2024 9:28 AM 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 Temperature 36.5 C (97.7 F) 10/18/2024 9:28 AM 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 Respiratory Rate 16 10/18/2024 9:28 AM 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 Oxygen Saturation 95% 10/18/2024 9:28 AM 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 Inhaled Oxygen Concentration - - Weight 94.3 kg (208 lb) 02/25/2025 10:50 AM CDT Height 188 cm (6' 2 ) 02/25/2025 10:50 AM CDT Body Mass Index 26.71 02/25/2025 10:50 AM CDT Plan of Treatment Not on file Goals Goal Patient Goal Type Associated Problems Recent Progress Patient-Stated? Author CCM Chronic Pain Care Plan Chronic Care Management No Dara Stringer RN Note: Problem: Chronic Pain Goals: 1. Minimize further functional decline 2. Maximize quality of life 3. Control pain Strategies: - Activity/exercise program recommendation - Conservative stepwise pain medicine strategy with multi-disciplinary approach - Recommend healthy lifestyle strategies and compensatory methods as needed Reduce the likelihood of falling Lifestyle No Dara Stringer RN Note: Below are four things you can do to prevent falls: Begin an exercise program to improve your leg strength & balance Ask your doctor or pharmacist to review your medicines Get annual eye check-ups & update your eyeglasses Make your home safer by: Removing clutter & tripping hazards Putting railings on all stairs & adding grab bars in the bathroom Having good lighting, especially on stairs Contact your local community or senior center for information on exercise, fall prevention programs, or options for improving home safety. Medical Devices Implanted Type Area Soil Technologist Device Identifier Shelf Expiration Date Model / Serial / Lot Knee Replacement Bilateral: Knee [employer] Encore Suspension Adjustable Knotless Bone Sheffield Self Guided [id number] - [id number] - [id number] Implanted:Qty: 1 on 12/31/2023 by Angelic Judd MD at [facility] N/A: Mouth [employer] [id number] 09/30/2025 [id number] / [id number] / [id number] [employer] Gel Skin Juvederm Ultra Xc Latex Free [id number] - [id number] Implanted:Qty: 1 on 04/07/2024 by Angelic Judd MD at [facility] N/A: Pharynx [employer] [id number] 10/04/2024 [id number] / / [id number] Description:Posterior wall Procedures Procedure Name Priority Date/Time Associated Diagnosis Comments PSA SCREEN Routine 11/05/2023 11:43 AM 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 Prostate cancer screening from Last 3 Months or Most Recently Relevant to Health Maintenance Results * PSA screen (11/05/2023 11:43 AM 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) PSA-Total 3.79 <=6.20 ng/mL ALISIA SANCHEZ Comment: Interpretive Data AGE SEX REFERENCE INTERVAL 0 minutes-150 years Female None 0 minutes-49 years Male None 50-59 years Male 0-3.90 60-69 years Male 0-5.40 70-79 years Male 0-6.20 80-150 years Male 0-6.20 The Meño PSA Total assay procedure was used. Results from different manufacturers or methods may not be comparable. Serial testing should be performed using the same method. Current interpretive data last revised 22. Blood 11/05/2023 11:4 3 AM 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 11/05/2023 6:21 PM 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 us Berenice Ram NP LAB BLOOD ORDERABLES Final Re sult ALISIA SANCHEZ [address] [place] [address] from Last 3 Months or Most Recently Relevant to Health Maintenance Insurance SPECIAL CONTRACT ARRANGEMENT MEDICARE [facility] MEDICARE MEDICARE MEDICARE [facility] MEDICARE Advance Directives For more information, please contact: [phone] * Full Code (Latest Code Status on File) Date Activated Date Inactivated Comments 12/31/2023 3:17 PM 01/01/2024 3:14 PM * Full Code Date Activated Date Inactivated Comments 12/03/2022 5:21 PM 12/04/2022 7:43 PM * Full Code Date Activated Date Inactivated Comments 11/28/2022 6:26 AM 12/03/2022 5:21 PM * Full Code Date Activated Date Inactivated Comments 08/28/2020 8:08 AM 08/28/2020 1:46 PM * Full Code Date Activated Date Inactivated Comments 05/01/2020 1:17 PM 05/01/2020 8:21 PM Care Teams Bioinformatics Computer Scientist Relationship Specialty Start Date End Date Park Cunha PA PCP - General 02/28/17 Jose Guadalupe Sweeney MD [address] [address] Business Analytics Intern Cardiology 02/23/21
--- OUTSIDE RECORDS SUMMARY | 2025-03-15 13:00 | XMS_ITS | Encounter Summary ---
Author Organization [facility] Facility Care Team Providers Care General Ledger Accountant Name Role Phone Park Cunha Primary Care Pr ovider Park Cunha Primary Care Pr ovider Park Cunha Primary Care Pr ovider Isaiah Rendon MD Unavailable [phone] Jose Guadalupe Sweeney MD Unavailable [phone] Encounter Details Date Type Department Care Team (Latest Contact Info) Description 06/21/2016 Orders Only [facility]INCON[facility] ProviderSouleymane MD [address] [place] [id number] Social History Tobacco Use Types Packs/Day Years Used Date Smoking Tobacco: Never Assessed Sex and Gender Information Value Date Recorded Sex Assigned at Not on file Legal Sex Male 2:33 AM ASSISTED LIVING DIRECTOR Gender Identity Male 09/19/2024 10:05 AM CDT Sexual Orientation Straight 09/19/2024 10 :05 AM CDT documented as of this encounter Plan of Treatment Not on file documented as of this encounter Procedures Procedure Name Priority Date/Time Associated Diagnosis Comments SCAN - LABS 06/24/2016 12:00 AM CDT documented in this encounter Results * SCAN - LABS (06/24/2016 12:00 AM CDT) Narrative 06/24/2016 12:00 AM CDT Ordered by an unspecified provider. us Historical Provider Final Res ult documented in this encounter Visit Diagnoses Not on filedocumented in this encounter Additional Health Concerns Infection Onset Date Last Indicated Resolved Time C. difficile Comment:01/201502/16/2015 02/15/2015 11/28/2022 8:[address] documented as of this encounter Care Teams General Ledger Accountant Relationship Specialty Start Date End Date Park Cunha PA PCP - General 02/28/17 Park Cunha PA PCP - General 01/14/17 02/27/17 Park Cunha PA PCP - General 01/07/17 01/13/17 Isaiah Rendon MD Radiation Oncologist Radiation Oncology 02/21/20 Jose Guadalupe Sweeney MD [address] [address] Director Process Improvement Cardiology 02/23/21 documented as of this encounter
--- OUTSIDE RECORDS SUMMARY | 2025-03-15 13:00 | XMS_ITS | Data Portability ---
Author Organization [facility], Main Office Address [address] [place] [address] Assessment No assessment recorded. Plan of Treatment Reminders Order Date Submit Date Provider Last Modified By Organization Details Last Modified Time Details Appointments None recorded. Lab HbA1c (hemoglobi n A1c), blood 2022 023 [email or web address] [facility], [address], [address], [place], [address], 4 08:52:06 CBC w/ auto diff 2022 023 [email or web address] [facility], [address], [address], [place], [address], 4 08:52:06 hepatic function panel, serum 2022 023 [email or web address] [facility], [address], [address], [place], [address], 4 08:52:07 BMP, serum or plasma 2022 023 [email or web address] [facility], [address], [address], [place], [address], 4 08:52:07 lipid panel, serum 2022 023 [email or web address] [facility], [address], [address], [place], [address], 4 08:52:06 Referral ENT surgery referral 2022 023 [email or web address] 4 [place], [address], [address], [place], [address], 4 16:39:39 urologist referral 2022 023 [email or web address] 4 [facility], [address], [place], [address], 4 16:39:37 plastic surgeon referral 2022 023 [email or web address] Not available 4 08:50:45 Procedures None recorded. Surgeries None recorded. Imaging None recorded. Medication Orders None recorded. Patient TargetsNo targets recorded. Patient InstructionsNo instructions recorded. Reason for Referral Urologist Referral for Large prostate Referring Physician: Park [facility], Encounter Date: 07/17/2023 ENT Surgery Referral for Obs tructive sleep apnea syndrome consult for INSPIRE device candidate Referring Physician: Park C[facility]ha [facility], Encounter Date: 07/17/2023 Plastic Surgeon Referral for Change in skin lesion left groin skin lesion changing Referring Physician: Park C[facility], Encounter Date: 07/17/2023 Results Created Date Observation Date Name Description Value Unit Range Abnormal Flag Note LastModifiedBy Organization Detail LastModifiedTime 11/08/20 22 11/08/2022 colon oscop y scree krzysztof (PROC ) No observ ation record ed. [id number] Orlin Pearson MD [address], [place], [address], 01/29/2023 13:32:01 01/08/20 23 12/05/2022 event monit or No observ ation record ed. [id number] [facility] Cardiovascula r Department [address] [facility] , [place], [address], 01/29/2023 13:32:01 10/29/20 23 08/08/2023 PFT, compl ete No observ ation record ed. [email or web address] Not Available 10/30 14:41:25 Result Notes None recorded. Problems Name Problem SNOMED Code Status Onset Date Resolution Date Notes Provider Name and Address Organization Details Recorded Time Renal angle tenderness 350307093 Active Not Available [facility] 3 13:30:25 Benign hypertensi on 94468737 Active Not Available [facility] 3 13:30:26 Benign essential hypertensi on 4628366 Active 2022 Not Available [facility] 3 13:30:26 Serum creatinine above reference range 329789014 Active Not Available [facility] 3 13:30:26 Painless hematuria 807412295 Active Not Available [facility] 3 13:30:26 Gastroesop hageal reflux disease 880750558 Active Not Available [facility] 3 13:30:26 Lumbosacra l radiculopa thy 7705533 Active Not Available [facility] 3 13:30:26 Rectal mass 352555675 Active 2021 Not Available [facility] 3 13:30:26 Degenerati on of lumbar interverte bral disc 87222382 Active Not Available [facility] 3 13:30:26 Dyspnea 012298370 Active 2022 Not Available [facility] 3 13:30:26 Syncope 742297796 Active 2022 Not Available [facility] 3 13:30:26 Peripheral neuropathi c pain 913213032 Active Not Available [facility] 3 13:30:26 Renal mass 278925555 Active Not Available [facility] 3 13:30:26 Blood in urine 89072859 Active Not Available [facility] 3 13:30:26 Strain of neck muscle 102891781 Active 2021 Not Available [facility] 3 13:30:27 History of male erectile disorder 553399598 Active 2016 Not Available [facility] 3 13:30:27 Well controlled type 2 diabetes mellitus 817175383 Active 2021 Not Available [facility] 3 13:30:27 Raised seborrheic keratosis 4279280560026 00 Active 2021 Not Available [facility] 3 13:30:27 Coronary arterioscl erosis 36663608 Active Not Available [facility] 3 13:30:27 Hyperlipid emia 48215805 Active Not Available [facility] 3 13:30:27 Carpal tunnel syndrome 45466639 Active Not Available [facility] 3 13:30:27 Degenerati on of cervical interverte bral disc 11663357 Active Not Available [facility] 3 13:30:27 Varicose veins of lower extremity 34854182 Active Not Available [facility] 3 13:30:27 Obstructiv e sleep apnea syndrome 54754714 Active 2020 Not Available [facility] 3 13:30:28 Neck pain 26113917 Active Not Available [facility] 3 13:30:28 COVID-19 326246267 Active 2021 Not Available [facility] 3 13:30:28 Edema of lower extremity 388304771 Active 2022 ELLIOT Suarez [address], [address], [place], [address] , [facility] 3 14:43:19 Varicose veins of lower extremity 39807980 Active 2022 ELLIOT Suarez [address], [address], [place], [address] , [facility] 3 14:43:40 Secondary peripheral neuropathy 946062 Active 2022 ELLIOT Suarez [address], [address], [place], [address] , [facility] 3 14:43:44 Metastatic renal cell carcinoma 647556864 Active 2022 ELLIOT Suarez [address], [address], [place], [address] , [facility] 3 20:23:19 Cervical radiculopa thy 97349964 Active 2022 ELLIOT Suarez [email or web address], [place], [address] , [facility] 3 12:25:26 Large prostate 288187892 Active 2022 ELLIOT Suarez [address], [email or web address], [place], [address] , [facility] 3 12:30:11 Change in skin lesion 597299051 Active 2022 ELLIOT Suarez [address], [email or web address], [place], [address] , [facility] 3 12:33:50 Upper respirator y infection 27732907 Active 2022 ELLIOT Suarez [address], [email or web address], [place], [address] , [facility] 3 16:26:06 Cough 95724985 Active 2022 ELLIOT Suarez [address], [email or web address], [place], [address] , [facility] 3 16:26:14 Persistent cough 260534128 Active 2022 ELLIOT Suarez [address], [address], [place], [address] , [facility] 3 11:51:23 Benign prostatic hyperplasi a 302269350 Active 2022 ELLIOT Suarez [address], [email or web address], [place], [address] , [facility] 3 10:00:16 Notes:COVID pos 12/18/22 Problem Notes None recorded. Procedures Surgical History Date Name Laterality Status Provider Name and Address Organization Details Recorded Time 10/10/20 17 [facility]oscopy completed [facility] Available [facility] 01/29/2023 13:29:49 02/06/20 13 Colonoscopy completed Not Available [facility] 01/29/2023 13:29:49 Cardiovascular Surgery completed Not Available [facility] 01/29/2023 13:29:49 Hernia Surgery completed Not Available [facility] 01/29/2023 13:29:49 Kidney/Bladder Surgery completed Not Available [facility] 01/29/2023 13:29:49 Vascular Surgery completed Not Available [facility] 01/29/2023 13:29:49 Orthopedic Surgery completed Not Available [facility] 01/29/2023 13:29:49 Orthopedic Surgery completed Not Available [facility] 01/29/2023 13:29:49 Imaging Results Imaging Date Name Status LastModified by Organization Details LastModified Time 12/05/2022 event monitor completed [id number] [facility] Cardiovascular Department [address] [place], [address], 01/29/2023 13:32:01 11/08/2022 colonoscopy screening (PROC) completed [id number] Orlin Pearson MD [address] [facility] [address], [place], [address], 01/29/2023 13:32:01 08/08/2023 PFT, complete completed [email or web address] Information not available 10/30/2023 14:41:25 Procedure Notes None recorded. Medical Equipment None Reported. Allergies Allergen ID Allergen Name Allergen Category Reaction Reaction Severity Criticality Documentation Date Start Date Code Code System Note Provider Name and Address Organization Details Recorded Time 49012 Ceftin medicatio n other Not available Not available 01/29/2023 23039 6 RxNorm CDIFF Not Available [facility] 13:32:00 Medications Name Sig Start Date Stop Date Status Note LastModified by Organization Details LastModified Time losartan 50 mg tablet 05/17 completed Not Available Not Available Not Available celecoxib 200 mg capsule 05/17 completed Not Available Not Available Not Available cyclobenz aprine 10 mg tablet 05/17 completed Not Available Not Available Not Available atorvasta tin 80 mg tablet Take 1 tablet every day by oral route. 11/15 completed Not Available Not Available Not Available gabapenti n 600 mg tablet TAKE 1 TABLET BY MOUTH THREE TIMES DAILY active Not Available Not Available No t Available tizanidin e 4 mg tablet TAKE 1 TABLET BY MOUTH EVERY 6 HOURS NEEDED active Not Available Not Available No t Available benzonata te 200 mg capsule Take 1 capsule 3 times a day by oral route. 08/11 completed Not Available Not Available Not Available metoprolo l succinate ER 50 mg tablet,ex tended release 24 hr TAKE 1 TABLET BY MOUTH ONCE DAILY active Not Available Not Available No t Available ondansetr on HCl 4 mg tablet 05/17 completed Not Available Not Available Not Available prednison e 20 mg tablet TAKE 2 TABLETS BY MOUTH EVERY DAY FOR 5 DAYS active Not Available Not Available No t Available isosorbid e mononitra te ER 30 mg tablet,ex tended release 24 hr 05/17 completed Not Available Not Available Not Available diphenoxy late-atro pine 2.5 mg-0.025 mg tablet TAKE 1 TABLET BY MOUTH PER EACH LOOSE STOOL NEEDED. DO NOT EXCEED 8 TABS PER 24 HOURS 11/16 completed Not Available Not Available Not Available metronida zole 500 mg tablet 05/17 completed Not Available Not Available Not Available acetamino phen 300 mg-codein e 30 mg tablet Take 1 tablet every 6-8 hours by oral route as needed. 03/20 completed Not Available Not Available Not Available amlodipin e 5 mg tablet TAKE 1 TABLET BY MOUTH ONCE DAILY active Not Available Not Available No t Available prochlorp erazine maleate 10 mg tablet 05/17 completed Not Available Not Available Not Available Tamiflu 75 mg capsule 05/17 completed Not Available Not Available Not Available aspirin 81 mg tablet,de layed release Take 1 tablet every day by oral route. 2014 active Not Available Not Available Not Avai lable tramadol 50 mg tablet 05/17 completed Not Available Not Available Not Available simvastat in 40 mg tablet Take 1 tablet every day by oral route for 30 days. 05/17 completed Not Available Not Available Not Available pantopraz ole 20 mg tablet,de layed release TAKE 1 TABLET BY MOUTH TWICE DAILY active Not Available Not Available No t Available oxycodone -acetamin ophen 5 mg-325 mg tablet 05/17 completed Not Available Not Available Not Available isosorbid e mononitra te ER 60 mg tablet,ex tended release 24 hr 05/17 completed Not Available Not Available Not Available alprazola m 0.5 mg tablet 05/17 completed Not Available Not Available Not Available amoxicill in 875 mg tablet TAKE 1 TABLET BY MOUTH EVERY 12 HOURS 08/28 completed Not Available Not Available Not Available tamsulosi n 0.4 mg capsule TAKE 1 CAPSULE BY MOUTH ONCE DAILY 11/15 completed Not Available Not Available Not Available amlodipin e 10 mg tablet TAKE 1 TABLET BY MOUTH ONCE DAILY active Not Available Not Available No t Available neomycin- polymyxin -dexameth 3.5 mg/mL-10, 000 unit/mL-0 .1% eye drops 05/17 completed Not Available Not Available Not Available metoprolo l tartrate 50 mg tablet TAKE 1 TABLET BY MOUTH TWICE DAILY 07/17 completed Not Available Not Available Not Available gabapenti n 300 mg capsule TAKE 1 CAPSULE BY MOUTH THREE TIMES DAILY active Not Available Not Available No t Available omeprazol e 20 mg capsule,d elayed release Take 1 capsule every day by oral route. 08/22 completed Not Available Not Available Not Available diclofena c sodium 75 mg tablet,de layed release 05/18 completed Not Available Not Available Not Available codeine 10 mg-guaife nesin 100 mg/5 mL oral liquid TAKE 10 ML BY MOUTH EVERY 6 TO 8 HOURS NEEDED 08/28 completed Not Available Not Available Not Available hydrochlo rothiazid e 25 mg tablet TAKE 1 TABLET BY MOUTH ONCE DAILY active Not Available Not Available No t Available mupirocin 2 % topical ointment APPLY A SMALL AMOUNT TO THE GROIN LESION TOPICALL Y 2 TIMES PER DAY active Not Available Not Available No t Available metoprolo l succinate ER 25 mg tablet,ex tended release 24 hr Take 1 tablet every day by oral route. 2014 active incorrec t med on list. Not Available Not Available Not Available cefuroxim e axetil 500 mg tablet 05/17 completed Not Available Not Available Not Available polyethyl leon glycol 3350 17 gram/dose oral powder MIX 17 GRAMS (1 SCOOP) IN 8OZ OF FLUID AND DRINK TWICE DAILY NEEDED WITH GOAL OF 1 SOFT BOWEL MOVEMENT WITHOUT STRAININ G AT LEAST EVERY OTHER DAY 08/28 completed Not Available Not Available Not Available methylpre dnisolone 4 mg tablets in a dose pack TAKE DIRECTED ON PACKAGE 05/16 completed Not Available Not Available Not Available naproxen 500 mg tablet 05/17 completed Not Available Not Available Not Available diazepam 5 mg tablet 05/17 completed Not Available Not Available Not Available amoxicill in 875 mg-potass ium clavulana te 125 mg tablet Take 1 tablet every 12 hours by oral route. 05/17 completed Not Available Not Available Not Available oxycodone 5 mg tablet 05/17 completed Not Available Not Available Not Available azithromy isis 500 mg tablet 05/17 completed Not Available Not Available Not Available ezetimibe 10 mg tablet TAKE 1 TABLET BY MOUTH ONCE DAILY 05/18 completed Not Available Not Available Not Available rosuvasta tin 10 mg tablet TAKE 1 TABLET BY MOUTH ONCE DAILY 05/17 completed Not Available Not Available Not Available rosuvasta tin 20 mg tablet TAKE 1 TABLET BY MOUTH EVERY OTHER DAY ALTERNAT ING WITH 40 MG EVERY OTHER NIGHT 07/17 completed Not Available Not Available Not Available rosuvasta tin 40 mg tablet TAKE 1 TABLET BY MOUTH NIGHTLY AT BEDTIME active Not Available Not Available No t Available alfuzosin ER 10 mg tablet,ex tended release 24 hr active Not Available Not Available Not Available tadalafil 5 mg tablet TAKE 1 TABLET BY MOUTH EVERY DAY active Not Available Not Available No t Available metoprolo l tartrate 25 mg tablet TAKE ONE TABLET BY MOUTH TWICE DAILY 05/17 completed Not Available Not Available Not Available TriLyte With Flavor Packets 420 gram oral solution 11/16 completed Not Available Not Available Not Available duloxetin e 30 mg capsule,d elayed release TAKE 1 CAPSULE BY MOUTH ONCE DAILY IN THE MORNING 2022 active Not Available Not Available Not Avai lable acetamino phen 2014 active Not Available Not Available Not Avai lable One A Day Vitamin takes daily 2014 active Not Available Not Available Not Avai lable Voltaren 1 % topical gel APPLY 2 GRAM TO THE neck muscle region BY TOPICAL ROUTE 3-4 TIMES PER DAY active Not Available Not Available No t Available Votrient 200 mg tablet Take 4 tablets (800 mg total) by mouth daily. 05/18 completed Not Available Not Available Not Available Suprep Bowel Prep Kit 17.5 gram-3.13 gram-1.6 gram oral solution TAKE DIRECTED 11/15 completed Not Available Not Available Not Available Prepopik 10 mg-3.5 gram-12 gram oral powder packet 05/17 completed Not Available Not Available Not Available Fluvirin 7128-4634 45 mcg (15 mcg x 3)/0.5 mL intramusc ular suspensio n 05/17 completed Not Available Not Available Not Available Lotemax SM 0.38 % eye gel drops INSTILL A SMALL AMOUNT INTO EACH EYE THREE TIMES DAILY 05/17 completed Not Available Not Available Not Available ID NOW COVID-19 Test Kit TEST DIRECTED TODAY [id number] 05/16 completed Not Available Not Available Not Available Fluad Quad 0650-0701 (65yr up)(PF) 60 mcg (15 mcg x 4)/0.5mL IM syringe 05/17 completed Not Available Not Available Not Available Paxlovid 300 mg (150 mg x 2)-100 mg tablets in a dose pack take the 3 specifie d tablets in the AM and the 3 specifie d tablets in the PMas directed on the blist package instruct ions for 5 days.do not take atorvast atin during this time of paxlovid use. 03/17 completed Not Available Not Available Not Available Vitals Date Recorded Body mass index (BMI) Body height Oxygen saturation Oxygen saturation in Arterial blood by Pulse oximetry Heart rate Respiratory rate Body temperature Body weight Systolic blood pressure Diastolic blood pressure Provider Name and Address Organization Details Last Updated DateTime 2 31.6 kg/m2 183.52 cm 97 % 97 % 66 /min 16 /min 97.3 [degF] 207126. 21 g 140 mm[Hg] 82 mm[Hg] Not Available [facility] 3 13:30:15 Date Recorded Body mass index (BMI) Body height Oxygen saturation Oxygen saturation in Arterial blood by Pulse oximetry Heart rate Body temperature Body weight Systolic blood pressure Diastolic blood pressure Provider Name and Address Organization Details Last Updated DateTime 3 31.2 kg/m2 183.52 cm 96 % 96 % 68 /min 97.5 [degF] 055636. 43 g 112 mm[Hg] 68 mm[Hg] Not Available [facility] 3 13:30:15 Date Recorded Body height Body temperature Body mass index (BMI) Body weight Heart rate Oxygen saturation Oxygen saturation in Arterial blood by Pulse oximetry Systolic blood pressure Diastolic blood pressure Provider Name and Address Organization Details Last Updated DateTime 3 183.52 cm 98 [degF] 30.2 kg/m2 860576. 69 g 72 /min 96 % 96 % 124 mm[Hg] 74 mm[Hg] Tali Smith RN [facility] [employer] [facility] 3 14:15:01 Date Recorded Body height Body temperature Body mass index (BMI) Body weight Respiratory rate Oxygen saturation Oxygen saturation in Arterial blood by Pulse oximetry Heart rate Systolic blood pressure Diastolic blood pressure Provider Name and Address Organization Details Last Updated DateTime 3 183.52 cm 98 [degF] 32.1 kg/m2 980250. 98 g 16 /min 97 % 97 % 74 /min 140 mm[Hg] 80 mm[Hg] LETICIA Riddle [facility] [employer] [facility] 3 11:53:27 Date Recorded Body height Body temperature Body mass index (BMI) Body weight Respiratory rate Oxygen saturation Oxygen saturation in Arterial blood by Pulse oximetry Heart rate Systolic blood pressure Diastolic blood pressure Provider Name and Address Organization Details Last Updated DateTime 3 183.52 cm 98 [degF] 31.6 kg/m2 759860. 21 g 16 /min 95 % 95 % 72 /min 122 mm[Hg] 72 mm[Hg] LETICIA Riddle [facility] [employer] [facility] 3 11:56:25 Social History Question Answer Notes LastModified by Organizat ion Details LastModified Time Tobacco Smoking Status Never Smoker Not Available [facility] 01/29/2023 13:29:47 What Is Your Level Of Alcohol Consumption? Moderate Beer- Weekly [id number] Information not available 01/29/2023 What Is Your Level Of Caffeine Consumption? None [id number].92608 [id number] Information not available 01/29/2023 How Much Tobacco Do You Chew? None MIGRATION.45470 [id number] Information not available 01/29/2023 In The 14 Days Before Symptom Onset, Have You Had Close Contact With A Laboratory-confir med COVID-19 While That Case Was Ill? No [id number] Information not available 01/29/2023 In The 14 Days Before Symptom Onset, Have You Had Close Contact With A Person Who Is Under Investigation For COVID-19 While That Person Was Ill? No [id number] [id number] Information not available 01/29/2023 Are You Currently Employed? Yes [email or web address] Information not available 03/19/2023 What Type Of Diet Are You Following? REGULAR [id number].78656 [id number] Information not available 01/29/2023 Which Illicit Or Recreational Drugs Have You Used? None [id number].[id number] Information not available 01/29/2023 Do You Or Have You Ever Used E-cigarettes Or Vape? Never Used Electronic Cigarettes MIGRATION.49589 [id number] Information not available 01/29/2023 What Is Your Occupation? [employer] MIGRATION.17295 [id number] Information not available 01/29/2023 Have There Been Any Changes To Your Family Or Social Situation? No MIGRATION.39521 [id number] Information not available 01/29/2023 Do You Use Insect Repellent Routinely? No MIGRATION.14345 16496 Information not available 01/29/2023 What Is Your Relationship Status? MIGRATION.64134 [id number] Information not available 01/29/2023 Do You Use Your Seat Belt Or Car Seat Routinely? Yes MIGRATION.14911 [id number] Information not available 01/29/2023 Do You Have Smoke And Carbon Monoxide Detectors In Your Home? Yes MIGRATION.03629 49942 Information not available 01/29/2023 Do You Or Have You Ever Used Smokeless Tobacco? Never Used Smokeless Tobacco MIGRATION.04586 20376 Information not available 01/29/2023 How Much Tobacco Do You Smoke? No MIGRATION.86113 [id number] Information not available 01/29/2023 Do You Use Any Illicit Or Recreational Drugs? No MIGRATION.08162 91036 Information not available 01/29/2023 Do You Use Sunscreen Routinely? Yes MIGRATION.60635 64473 Information not available 01/29/2023 Have You Recently Traveled Abroad? No MIGRATION.45385 [id number] Information not available 01/29/2023 Do You Have Any Dietary Restrictions? No MIGRATION.31968 52274 Information not available 01/29/2023 Do You Or Have You Ever Used Any Other Forms Of Tobacco Or Nicotine? No MIGRATION.09549 70808 Information not available 01/29/2023 Sex: Unknown Functional Status Question Answer Note LastModified by Organizat ion Details LastModified Time Are you able to care for yourself? Yes [id number] Information not available 01/29/2023 What is your exercise level? Moderate Walking [id number] Information not available 01/29/2023 Mental Status None recorded. Family History Relationship Description Onset Age of this Age Resolved Age Notes LastModified by Organization Details LastModified Time Father Malignant tumor of colon 80 [id number] Not available 01/29/2023 13:29:50 Mother Malignant tumor of colon 84 [id number] Not available 01/29/2023 13:29:50 Brother History of heart disorder [id number] Not available 01/29/2023 13:29:50 Medical History Condition Response NERVE DISEASE Y HIGH CHOLESTEROL / HYPERLIPIDEMIA Y BACK / NECK PROBLEMS Y URINARY/BLADDER/KIDNEY PROBLEMS Y CORONARY ARTERY DISEASE (CAD) SKIN PROBLEMS Y HEARTBURN / REFLUX Y SLEEP DISORDER HEADACHES/MIGRAINES Y Blood Disorder Y DIZZINESS Y CANCER: SPECIFY Y Immunizations Vaccine Type Date Status Note Provider Nam e and Address Organization Details Recorded Time SARS-COV-2 (COVID-19) vaccine, UNSPECIFIED 1 completed Not Available [facility] 01/29/2023 13:31:57 Influenza, high-dose, quadrivalent, PF 0 completed Not Available [facility] 01/29/2023 13:31:57 influenza, unspecified formulation 5 completed Not Available [facility] 01/29/2023 13:31:57 Past Encounters Encounter ID Performer Location Encounter Start Date Encounter Closed Date Diagnosis/Indication Diagnosis SNOMED-CT Code Diagnosis ICD10 Code Diagnosis Note [id number] [facility] [address] [place] [address] 05/18/2021 00:00:00 05/29/2021 23:24:43 [id number] [facility] [address] [place] [address] 08/01/2021 00:00:00 08/07/2021 14:21:22 [id number] [facility] [address] [place] [address] 11/16/2021 00:00:00 11/29/2021 18:58:23 [id number] [facility] [facility] [address] [place] [address] 05/17/2022 00:00:00 05/30/2022 11:38:41 [id number] [facility] [address] [place] [address] 08/02/2022 00:00:00 08/02/2022 09:58:45 [id number] [facility] [address] [place] [address] 11/15/2022 00:00:00 11/27/2022 18:22:34 [id number] [facility] [address] [place] [address] 12/11/2022 00:00:00 12/30/2022 22:49:20 [id number] ELLIOT Suarez [facility] [address] [place] [address] 03/20/2023 13:55:27 03/20/2023 14:45:14 Edema of lower extremity [id number] R60.0 Pt is decreasing sodium significan tly in diet to help. Also elevating legs often and wearing compressio n stockings. Varicose v eins of lower extremity 04948458 I83.893 as above. Secondary peripheral neuropathy [id number] G62.89 patient is really having neuropathy pain that is causing difficulty standing at work, completing tasks timely at times, and having prior baseline of balance. He will be submitting paperwork for FMLA and short term disability for his neuropathy , as well as the swelling issues in the legs, and also the lung shortness of breath as result of his diaphragm raised on the left side. He cannot get into Pulmonolog ist until May this year. Dyspnea [id number] R06.00 pt has dyspnea at rest and increased with exertion/w alking/str aining, this is felt to be related to his left suzy-diaph ragm elevation noted on previous testing in the hospital. Pulmonary appt is in May. Metastatic renal cell carcinoma 102338030 C79.00 hx of renal cell cancer, resected but with metastasis to the lung that is currently been stable for some years with antineopla stic agents, which did lead to his severe peripheral neuropathy . [id number] ELLIOT Suarez [facility] [address] [place] [address] 04/03/2023 11:47:45 04/03/2023 12:24:58 Edema of lower extremity 710153851 R60.0 Pt is decreasing sodium significan tly in diet to help. Also elevating legs often and wearing compressio n stockings. Secondary peripheral neuropathy 034373 G62.89 patient is really having neuropathy pain that is causing difficulty standing at work, completing tasks timely at times, and having prior baseline of balance. He will be submitting paperwork for FMLA and short term disability for his neuropathy , as well as the swelling issues in the legs, and also the lung shortness of breath as result of his diaphragm raised on the left side. He cannot get into Pulmonolog ist until May this year. Varicose v eins of lower extremity 34567143 I83.893 as above. Dyspnea 833188694 R06.00 pt has dyspnea at rest and increased with exertion/w alking/str aining, this is felt to be related to his left suzy-diaph ragm elevation noted on previous testing in the hospital. Pulmonary appt is in May. Metastatic renal cell carcinoma [id number] C79.00 hx of renal cell cancer, resected but with metastasis to the lung that is currently been stable for some years with antineopla stic agents, which did lead to his severe peripheral neuropathy . Cervical radiculopathy 56133904 M54.12 hx noted and pt remains symptomati c with neck pain radiating into the UEs [id number] ELLIOT Suarez [facility] [address] [place] [address] 07/17/2023 11:48:54 07/17/2023 12:47:22 Peripheral neuropathic pain 811763479 M79.2 pt takes duloxetine and also correction gabapentin 900mg tid. Though he does still have neuropathy symptoms, the gabapentin does help keep symptoms less severe. He does want to continue medication s. Well contr olled type 2 diabetes mellitus 912024920 E11.9 stable. due for a1c in aug. dietary managed. History of male erectile disorder 871535823 Z87.438 stable. no acute changes. Coronary arteriosclerosis 23656884 I25.[address] no Chest pain or [place] at this time. Benign ess ential hypertension 7551896 I10 stable on medication s. Hyperlipidemia 74936630 E78.5 stable on statin therapy. UTD withe new cardiologi st he has chosen Obstructiv e sleep apnea syndrome 59622086 G47.33 refer to ENT for consult in [employer] device Gastroesop hageal reflux disease [id number] K21.00 stable on PPI therapy Large prostate 730975256 N40.0 refer to Urologist for evaluation and management . Change in skin lesion 39 0546713 L98.9 refer for left groin skin lesion growing in size. has been present for years. pt is known to dr. veloz, he would like to see him for this. Long-term drug therapy 495448638 Z79.899 Health Concerns Section Related Observation LastModified by Organization Detai ls LastModified Time None Recorded Concern Status LastModified by Organization Details LastModified Time None Recorded Advance Directives Directive None Recorded Payers Encounter Date Sequence Insurance Name Policy Number Policy Cheung Covered Member ID Cheung Member ID Guarantor Name 03/20/2023 1 [place] [id number] 2 Will Woodward [id number] Will Woodward 04/03/2023 1 [place] [id number] 2 Will Woodward [id number] Will Woodward 07/17/2023 1 [place] Will Woodward [id number] Will Woodward 07/17/2023 2 [facility] (MEDICARE SUPPLEMENT) PLAN G Will Woodward [id number] Will Woodward Notes Date Note Type Note Provider Name and Address Organization Details Recorded Time 2 text/html HyperlipidemiaReported bypatient.Duration:chronic Control:usually well controlled; improving; at goal Compliance:compliant; compliant with diet;does not exercise Complications:no peripheral artery disease; no cardiovascular disease;coronary artery disease Risk Factors:hypertensionHypert ensionReported bypatient.Duration:has noted for years Onset/Timing:better Alleviating Factors:medication Self Care:under emotional stress Associated Symptoms:no palpitations; no decline in exercise capacity; no snoring;shortness of breath;fatigueObstructive Sleep Apnea F/UReported bypatient.Quality:no loud snoring; no gasping for air; no witnessed apnea; no hyponasal speech; no frequent breathing through the mouth Onset/Timing:chronic Duration:continuous Severity:does not limit daily activities; no frequent sore throats resulting in excess missed days from school / work per year; no difficulty getting going in the morning; no awakening in the middle of the night with sore throat Location:no enlarged tonsils; no nasal passage blockage; no throat pain; no feeling of tightness in throat; no chest congestion;dryness of mouth Context:no lack of adequate sleep; no shift work; not currently taking medication to help sleep; no recent weight gain; no recent upper respiratory infection; no recent sick contacts; not worse with environmental exposure; not worse with seasonal allergen exposure; no hypertension; normal sleep hours Alleviating factors:relief with CPAP Aggravating factors:not worse during an upper respiratory infection (a cold); not worse when allergies are active Associated Symptoms:no awakening at night short of breath; no sweating heavily at night; no excessive sleepiness during the day; no suddenly falling asleep during the day; no napping; no impaired work performace; no nasal congestion;morning headacheReflux/GERDReporte d bypatient.Symptomsasymptom atic; no difficulty swallowing; no pain swallowing; no postprandial pain Severity:same Duration:present 5 or more years Onset/Timing:gone now Context:non-smoker; no drug/alcohol abuse; no drug alcohol withdrawal; not related to food/drink Alleviating Factors:medication Associated Symptoms:no frequent coughing; no hoarseness; no food getting stuck; no belching/burping; no vomiting; not vomiting blood; no regurgitation; no shortness of breath; no heartburn; no difficulty swallowing; no pain when swallowing; no bad taste; no decreased appetite; no weight loss; no black/tarry stools; no fatigue; no throat pain; no dental erosion; no bloating; no early satiety; no halitosis;chest pain Not Available [employer] 11/27/2022 18:22:34 3 text/html Generic HPI TemplateReported bypatient.Notes:pt is here for hosp f/uadmitted for syncopal episode, abdominal pain, nausea episode.dx- unknownrecords in room- reviewed. complete , extensive w/u completed with inpatient stay. no answers yet beyond possible vasovagal syncope. monitoring coordinator in place Not Available [employer] 12/30/2022 22:49:20 3 text/html Pt states for the past couple weeks both of his feet have been hurting and by the evening his feet are swollen. Pain is described as sharp and burning. Rated 8/10. Says its so bad sometimes he cant get out of his chair, walking is difficult. His GI dr recommended him seeing a neurologist at [facility] in [facility]. Lower part of his calf gets a little red but no warmth. He also mentioned that he cant see his general agent until May and has been having SOB, and continues to the the left diaphragm difficulties. ELLIOT Suarez [address] [facility] [place] [address], [place], [address], [employer] 03/27/2023 20:24:27 3 text/html Generic HPI TemplateReported bypatient.Location[facility] feet Quality:swelling Severity:improving but worse at night Associated Symptoms:feet still hurtNotes:Pt is here to f/u on the swelling. ELLIOT Suarez [address] [facility] [place] [address], [place], [address], [employer] 04/30/2023 00:42:27 3 text/html HyperlipidemiaReported bypatient.Duration:chronic Control:usually well controlled Compliance:compliant; compliant with diet;does not exercise Complications:no coronary artery disease; no peripheral artery disease; no cardiovascular disease Risk Factors:hypertensionHypert ensionReported bypatient.Duration:has noted for years Onset/Timing:better Alleviating Factors:medication Associated Symptoms:no shortness of breath; no fatigue; no palpitations; no decline in exercise capacity; no snoringNeurologic SymptomsReported bypatient.Notes:pt with chronic neuropathy of the BLE's. on gabapentin and duloxetine. no acute changes.Obstructive Sleep Apnea F/UReported bypatient.Quality:no loud snoring; no gasping for air; no witnessed apnea; no hyponasal speech; no frequent breathing through the mouth;worsening Onset/Timing:chronic Duration:continuous Severity:does not limit daily activities; no frequent sore throats resulting in excess missed days from school / work per year; no difficulty getting going in the morning; no awakening in the middle of the night with sore throat Location:no enlarged tonsils; no nasal passage blockage; no throat pain; no feeling of tightness in throat; no dryness of mouth; no chest congestion Context:no lack of adequate sleep; no shift work; not currently taking medication to help sleep; no recent weight gain; no recent upper respiratory infection; no recent sick contacts; not worse with environmental exposure; not worse with seasonal allergen exposure; no hypertension; normal sleep hours Alleviating factors:nothing gives relief(waking up multiple times a night) Aggravating factors:not worse during an upper respiratory infection (a cold); not worse when allergies are active Associated Symptoms:no morning headache; no awakening at night short of breath; no sweating heavily at night; no excessive sleepiness during the day; no suddenly falling asleep during the day; no napping; no impaired work performace; no nasal congestionReflux/GERDRepor phani bypatient.Severity:same Duration:present 5 or more years Onset/Timing:gone now Context:non-smoker; no drug/alcohol abuse; no drug alcohol withdrawal; not related to food/drink Associated Symptoms:no frequent coughing; no feeling of fullness/mass in throat; no hoarseness; no food getting stuck; no belching/burping; no vomiting; not vomiting blood; no regurgitation; no shortness of breath; no chest pain; no heartburn; no difficulty swallowing; no pain when swallowing; no bad taste; no decreased appetite; no weight loss; no black/tarry stools; no fatigue; no throat pain ELLIOT Suarez [address] [place] [address], [address] [place], [address], [place] [facility] 07/31/2023 15:45:32
--- OUTSIDE RECORDS SUMMARY | 2025-03-15 13:00 | XMS_ITS | Clinical Summary ---
Author Organization [facility] Address [address] [place] [address] Care Team Providers Care Supervisor Fitting Name Role Phone Park Cunha Primary Care Pr ovider Jose Guadalupe Sweeney MD Unavailable [phone] Allergies Active Allergy Reactions Criticality Noted Date [...] 01/17/2023 Assessment & Plan (01/17/2023 10:16 AM POLYSOMNOGRAPHIC TECHNICIAN): On the event monitor patient had 2 [...] 11/28/2022 Assessment & Plan (01/17/2023 10:17 AM POLYSOMNOGRAPHIC TECHNICIAN): No further syncope noted. It appears that [...] 04/19/2022 Assessment & Plan (01/17/2023 10:17 AM POLYSOMNOGRAPHIC TECHNICIAN): Blood pressure is well controlled. Continue low-salt diet which I discussed with him. Continue amlodipine and metoprolol. Mixed hyperlipidemia 10/19/2021 Assessment & Plan (01/17/2023 10:17 AM POLYSOMNOGRAPHIC TECHNICIAN): Lipid panel looks good along with LFTs. Continue Crestor and heart healthy diet which I discussed with patient. I will check his Chem 12, magnesium and lipids prior to next appointment. Lumbosacral radiculopathy 09/06/2021 Obstructive sleep apnea syndrome 05/18/2021 Orthostatic dizziness 11/10/2020 Gastroesophageal reflux disease without esophagi tis 07/14/2020 Overview (07/14/2020): Added automatically from request for surgery [id number] Dysphagia 07/14/2020 Overview (07/14/2020): Added automatically from request for surgery [id number] Gastric ulcer 07/14/2020 Overview (07/14/2020): Added automatically from request for surgery [id number] Oropharyngeal dysphagia 07/14/2020 Overview (07/14/2020): Added automatically from request for surgery [id number] GERD (gastroesophageal reflux disease) 0 Bilateral lower extremity edema 11/05/2019 Venous insufficiency 10/01/2019 Overview (10/01/2019): Added automatically from request for surgery [id number] Precordial chest pain 03/12/2019 Metastatic carcinoma to lung, left 07/28/2018 Malignant (primary) neoplasm, unspecified 2017 Polyneuropathy in diseases classified elsewhere 12/19/2017 Erectile disorder due to medical condition in ma le 07/18/2017 Disorder of cardiac function 05/14/2017 Cardiomyopathy 05/02/2017 Overview (09/02/2022): At [facility] his echo showed a visually estimated [...] 07/10/2016 Assessment & Plan (01/17/2023 10:18 AM POLYSOMNOGRAPHIC TECHNICIAN): No clinical angina noted. Continue aspirin. Encouraged him to continue his walking. Advised him to contact me if he has any symptoms. History of hypertension 07/10/2016 Syncope 07/10/2016 Renal mass 05/23/2016 Resolved Problems Problem Noted Date Diagnosed Date Resolved Date Dyslipidemia 03/12/2019 10/19/2021 Essential hypertension 03/12/201904/19 Encounters Date Type Department Care Team Description 02/25/2025 10:20 AM CDT Office Visit [facility] ([facility] - [facility] [address] [place] [address] [place] [address] Angelic Judd MD IDALMIS (obstructive sleep apnea) (Primary Dx); Intolerance of continuous positive airway pressure (CPAP) ventilation; S/P UPPP (uvulopalatopharyngop lasty); Insomnia, unspecified type; Nocturia more than twice per night 12/24/2024 10:00 AM POLYSOMNOGRAPHIC TECHNICIAN Office Visit [facility] ([facility] - [facility] [address] [place] [address] [place] [address] Basim Garcia MD Laryngocele (Primary Dx) 12/15/2024 Telephone [facility] [address] [place] [phone] Liliana Mccall from Last 3 Months Immunizations Immunization Administration Dates Next Due Influenza, Quad, Adjuvantate d, Intramuscular 09/03/2020 Influenza, Quadrivalent, Hig h Dose, Preservative Free, Intrr 12/31/2023 Influenza, Trivalent, Cell C ulture-based MDCK, Preservative Free, Antibiotic Free, Intramuscular 12/02/2017 Influenza, Trivalent, Preser vative Free, Intramuscular 10/26/2015 Influenza, Unspecified 01/02/2017,10/26/2015,12/2014 Surgical History Surgery Date Site/Laterality Comments MA RPR UMBILICAL HERNIA < 5 YRS REDUCIBLE at least 10 years ago ESOPHAGOGASTRODUODENOSCOPY multiple CARPAL TUNNEL RELEASE 12/01/2012 - 11/30/2013 Bilateral NEPHRECTOMY RADICAL 12/01/2015 - 11/30/2016 Right TOTAL KNEE ARTHROPLASTY 12/01/2002 - 11/30/2003 Bilateral CARDIAC CATHETERIZATION 12/03/2022 no stents placed OTHER SURGICAL HISTORY 10/01/2023 - 10/30/2023 DRUG INDUCED SLEEP ENDOSCOPY EVAL FLEX DIAG ESOPHAGOGASTRODUODENOSCOPY 08/01/2023 - 08/30/2023 UVULOPALATOPHARYNGOPLASTY 12/31/2023 COLONOSCOPY 01/2023 ABDOMINAL SURGERY Kidney remove and hernia repair JOINT REPLACEMENT KNEE ARTHROSCOPY W/ LATERAL RELEASE knee , long time Medical History Medical History Date Comments Hypertension Cardiomyopathy (HCC) DVT, lower extremity (HCC) Dyslipidemia Carpal tunnel syndrome Sleep apnea says he breathes better and doesn't need cpap machine Coronary artery disease Renal cell carcinoma (HCC) GERD (gastroesophageal reflu x disease) Depression Hyperlipidemia Heart disease History of radiation therapy HL (hearing loss) Tinnitus Dizziness PONV (postoperative nausea a nd vomiting) Nausea 11/28/2022 Clotting disorder 4 years, and last we ek there was blood in my urine Peptic ulceration Recently diagnosed w ith in stomach Anxiety 4 years ago Arthritis Family History Medical History Relation Name Comments Cancer Father Keith Woodward Colon cancer Father Keith Woodward Stroke Father Keith Woodward Cancer Mother Evangelina Woodward Colon cancer Mother Evangelina Woodward Diabetes Mother Evangelina Woodward Hypertension Mother Evangelina Woodward Breast cancer Sister 1 Nabila Rossi Cancer Sister 1 Nabila Rossi Cancer Sister 2 Josefina Drew Lymphoma Sister 2 Josefina Drew Anesthesia problems Neg Hx Relation Name Status Comments Father Keith Woodward Mother Evangelina Woodward Sister 1 Nabila Rossi Sister 2 Josefina Drew Social History Tobacco Use Types Packs/Day Years [...] on file Legal Sex Male 2:33 AM POLYSOMNOGRAPHIC TECHNICIAN Gender Identity Male 09/19/2024 10:05 AM CDT Sexual Orientation Straight 09/19/2024 10 :05 AM CDT Obstetrics History Last Filed Vital Signs Vital Sign Reading Time Taken Comments Blood Pressure 120/61 10/18/2024 9:28 AM POLYSOMNOGRAPHIC TECHNICIAN Pulse 63 10/18/2024 9:28 AM POLYSOMNOGRAPHIC TECHNICIAN Temperature 36.5 C (97.7 F) 10/18/2024 9:28 AM POLYSOMNOGRAPHIC TECHNICIAN Respiratory Rate 16 10/18/2024 9:28 AM POLYSOMNOGRAPHIC TECHNICIAN Oxygen Saturation 95% 10/18/2024 9:28 AM POLYSOMNOGRAPHIC TECHNICIAN Inhaled Oxygen Concentration - - Weight 94.3 kg (208 lb) 02/25/2025 10:50 AM CDT Height 188 cm (6' 2 ) 02/25/2025 10:50 AM CDT Body Mass Index 26.71 02/25/2025 10:50 AM CDT Plan of Treatment Health Maintenance Due Date Last Done Comments Colon Cancer Screening-Colonoscopy 1955 Hepatitis C Screening 1955 DTaP/Tdap/Td Vaccine (1 - Tdap) 1964 Hepatitis B Screening 1971 Pneumococcal vaccine 65+ (1 of 2 - PCV) 1972 Zoster Vaccine (1 of 2) 1972 Well Visit 65+ 2018 Depression Screening 04/23/2020 04/23/2019, 04/23/20 19 Covid-19 Vaccine (3 - Modern a risk series) 03/09/2021 02/09/2021, 01/12/2021 Influenza Vaccine (#1) 2024 , 09/03/2020, 12/02/2017, Additional history exists Fall Risk Assessment 04/07/2025 04/07/2024, 09/20/2022, 01/18/2022, Additional history exists Prostate Cancer Screening-PSA Discontinued 11/05/2023, 08/22/2017 Goals Goal Patient Goal Type Associated Problems Recent Progress Patient-Stated? Author CCM Chronic Pain Care Plan Chronic Care Management No Dara Stringer, RN Note: Problem: Chronic Pain Goals: 1. Minimize further functional decline 2. Maximize quality of life 3. Control pain Strategies: - Activity/exercise program recommendation - Conservative stepwise pain medicine strategy with multi-disciplinary approach - Recommend healthy lifestyle strategies and compensatory methods as needed Reduce the likelihood of falling Lifestyle No Dara Stringer, RN Note: Below are four things you [...] on stairs Contact your local community or [facility] for information on exercise, fall prevention programs, or options for improving home safety. Medical Devices Implanted Type Area Laboratory Secretary Device Identifier Shelf Expiration Date Model / Serial / Lot Knee Replacement Bilateral: Knee [employer] Encore Suspension Adjustable Knotless Bone [place] Self Guided [id number] - [id number] - [id number] Implanted:Qty: 1 on 12/31/2023 by Angelic Judd MD at [facility] N/A: Mouth [employer] [id number] 09/30/2025 [id number] / [id number] / [id number] [employer] Gel Skin Juvederm Ultra Xc Latex Free [id number] - [id number] Implanted:Qty: 1 on 04/07/2024 by Angelic Judd MD at [facility] N/A: Pharynx [employer] [id number] 10/04/2024 [id number] / / [id number] Description:Posterior wall Procedures Procedure Name Priority Date/Time Associated Diagnosis Comments PSA SCREEN Routine 11/05/2023 11:43 AM POLYSOMNOGRAPHIC TECHNICIAN Prostate cancer screening from Last 3 Months or Most Recently Relevant to Health Maintenance Results * PSA screen (11/05/2023 11:43 AM POLYSOMNOGRAPHIC TECHNICIAN) PSA-Total 3.79 <=6.20 ng/mL ALISIA SANCHEZ Comment: [...] revised 22. Blood 11/05/2023 11:4 3 AM POLYSOMNOGRAPHIC TECHNICIAN 11/05/2023 6:21 PM POLYSOMNOGRAPHIC TECHNICIAN us Berenice Ram EMERGENCY MEDICAL TECHNICIAN BASIC LAB BLOOD ORDERABLES Final Re sult ALISIA [address] [address] Department [place] [address] from Last 3 Months or Most Recently Relevant to Health Maintenance Insurance SPECIAL CONTRACT ARRANGEMENT MEDICARE [facility] MEDICARE MEDICARE MEDICARE [facility] MEDICARE Advance Directives For more information, please contact: [phone] * Full Code (Latest Code Status on [...] 1:17 PM 05/01/2020 8:21 PM Care Teams Supervisor Fitting Relationship Specialty Start Date End Date Park Cunha PA PCP - General 02/28/17 Jose Guadalupe Sweenye MD [address] [place] [address] Wet Process Assistant Head [facility] 02/23/21
--- OUTSIDE RECORDS SUMMARY | 2025-03-15 13:00 | XMS_ITS | Continuity of Care Document ---
Author Organization [facility]. If a dditional information is needed, contact Health Information Management at [phone] Address [address] [place] [address] Phone Care Team Providers Care Clothing Busheler Name Role Phone Unavailable Unavailable Unavailable Mental Status Cognitive function finding 12-Mar-2017 Functional Status Functional finding 13-Mar-2017 Functional finding 13-Mar-2017 Functional finding 10-Mar-2017 Functional finding 10-Mar-2017 Functional finding 21-Feb-2017 Functional finding 21-Feb-2017 Functional finding 17-Feb-2017 Functional finding 17-Feb-2017 Allergies and Adverse Reactions Cephalosporins(Allergy) Onset: 10-Mar-2017 Reaction:RESULTED IN CDIFF Hydromorphone(Allergy) Onset: 10-Mar-2017 Reaction:delirium No Known Drug Allergies(Cali rgy) Onset: 17-Feb-2017 Reaction:NO KNOWN DRUG ALLER GIES Medications MULTI-DAY VITAMIN;1 EACH PO QPM Start:17-Feb-2017 Comments:1 EACH PO QPM acetaminophen 500 MG Oral Ta blet;500 MILLIGRAM PO QPM Start:17-Feb-2017 Comments:500 MG PO QPM As Needed for SLEEP gabapentin 300 MG Oral Capsu le [Neurontin];300 MILLIGRAM PO BEDTIME Start:17-Feb-2017 Comments:300 MG PO BEDTIME omeprazole 20 MG Delayed Rel ease Oral Capsule;20 MILLIGRAM PO QPM Start:17-Feb-2017 Comments:20 MG PO QPM aspirin 81 MG Delayed Releas e Oral Tablet;81 MILLIGRAM PO QPM Start:17-Feb-2017 Comments:81 MG PO QPM atorvastatin 80 MG Oral Tabl et;BEDTIME Start:17-Feb-2017 Comments:BEDTIME metoprolol tartrate 25 MG Or al Tablet;25 MILLIGRAM PO BID Start:17-Feb-2017 Comments:25 MG PO BID isosorbide dinitrate 30 MG O ral Tablet;30 MILLIGRAM PO DAILY Start:17-Feb-2017 Comments:30 MG PO DAILY Social History Smoking Status Ex-smoker Recorded: 10-Mar-2017 Never smoked tobacco Recorded: 17-Feb-2017 Encounters Ambulatory 03-Apr-2017 12:08 Nayla Perrin MD (Attending) [facility] Ambulatory 20-Mar-2017 13:14 Nayla Perrin MD (Attending) [facility] pre-admission 17-Feb-2017 09:40 Nayla Perrin MD (Attending) [facility]
--- OUTSIDE RECORDS SUMMARY | 2025-03-15 13:00 | XMS_ITS | Encounter Summary ---
Author Organization [facility] Address [address] [place] [address] Care Team Providers Care Cocktail Waitress Name Role Phone Park Neff Primary Care Pr ovider Encounter Details Date Type Department Care Team (Late st Contact Info) Description 07/25/2023 Lab Requisition [facility] - DermPath Lab [address] [place] [id number] Nick Morrison MD [address] [facility] [address] Social History Tobacco Use Types Packs/Day Years [...] Priority Date/Time Associated Diagnosis Comments DERMATOPATHOLOGY Routine 07/24/2023 12:0 0 AM CDT documented in this encounter Results * DERMATOPATHOLOGY (07/24/2023 12:00 AM CDT) Case Report Dermatopathology Report Case: [id number] Authorizing Provider: Nick Morrison MD Collected: 07/24/2023 12:00 AM Ordering Location: [facility] DermPath Lab Received: 07/25/2023 09:57 AM Pathologist: Mala Salgado MD Specimen: Skin, left ing fold 3:31 PM CDT DERMATOPATHOLOGY LABORATORY Final Diagnosis Specimen A. SKIN, left ing fold: PIGMENTED SEBORRHEIC KERATOSIS (L82.1) 3 3:31 PM T DERMATOPATHOLOGY LABORATORY Clinical History SK vs MM. Path#[id number] 3 3:31 PM T DERMATOPATHOLOGY LABORATORY Gross Description Specimen A: Received is one formalin filled container labeled with the patient's name and designated left ing fold. The specimen consists of a shave biopsy (3 pieces) measuring 27x7x2 mm, in aggregate. Jar 0. 3 3:31 PM T DERMATOPATHOLOGY LABORATORY Microscopic Description Specimen A. SKIN, left ing fold: Sections show an acanthotic lesion composed of relatively uniform keratinocytes. There is hyperkeratosis and pseudo horn cysts. Pigment is present in the keratinocytes composing this tumor. 3 3:31 PM T DERMATOPATHOLOGY LABORATORY Disclaimer An external and internal positive and negative controls are appropriate for the histochemical, immunohistochemical and immunofluorescence stain(s) in this case (if any), except where stated explicitly. The performance characteristics of the stain(s) cited in this report were developed and its performance characteristic determined by the Dermatopathology Laboratory at [facility], directed by Dr. Dann Florian. These tests need not be, and therefore are not, approved by the [place] Food and Drug Administration. The tests are used for clinical purposes. Billing Codes Specimen Charges Stain Charges 26307 1 3 3:31 PM CDT DERMATOPATHOLOGY LABORATORY Embedded Images 3 3:31 PM CDT DERMATOPATHOLOGY LABORATORY Pathology/Cytolog y TISSUE SPECIMEN FROM SKIN / Unknown 07/24/2023 07/25/2023 9:57 AM CDT us Nick Morrison MD LAB - PATHOLOGY/CYTOLOGY ORDER LYNSEY Final Result DERMATOPATHOLOGY LABORATORY [facility] - Department of Dermatology [address], [address] [phone] documented in this encounter Visit Diagnoses Not on filedocumented in this encounter Care Teams Cocktail Waitress Relationship Specialty Start Date End Date Park Neff PA [address] [place] [address] PCP - General 11/20/22 documented as of this encounter
--- OUTSIDE RECORDS SUMMARY | 2025-03-15 13:00 | XMS_ITS | Encounter Summary ---
Author Organization [facility] Care Team Providers Care Stucco Applicator Name Role Phone Park Cunha Primary Care Pr ovider Isaiah Rendon MD Unavailable [phone] Jose Guadalupe Sweeney MD Unavailable Encounter Details Date Type Department Care Team (Latest Contact Info) Description 04/16/2017 Orders Only [facility] CLINCONV ProviderSouleymane MD [address] [place] [address] Social History Tobacco Use Types Packs/Day Years Used Date Smoking Tobacco: Never Assessed Sex and Gender Information Value Date Recorded Sex Assigned at Not on file Legal Sex Male 2:33 AM DEALER COMPLIANCE REPRESENTATIVE Gender Identity Male 09/19/2024 10:05 AM CDT Sexual Orientation Straight 09/19/2024 10 :05 AM CDT documented as of this encounter Plan of Treatment Not on file documented as of this encounter Procedures Procedure Name Priority Date/Time Associated Diagnosis Comments SCAN - LABS 05/02/2017 12:00 AM CDT documented in this encounter Results * SCAN - LABS (05/02/2017 12:00 AM CDT) Narrative 05/02/2017 12:00 AM CDT Ordered by an unspecified provider. us Historical Provider Final Res ult documented in this encounter Visit Diagnoses Not on filedocumented in this encounter Additional Health Concerns Infection Onset Date Last Indicated Resolved Time C. difficile Comment:01/201502/16/2015 02/15/2015 11/28/2022 8:[address] documented as of this encounter Care Teams Stucco Applicator Relationship Specialty Start Date End Date Park Cunha PA PCP - General 02/28/17 Isaiah Rendon MD Radiation Oncologist Radiation Oncology 02/21/20 Jose Guadalupe Sweeney MD [address] [place] [address] Yoker Cardiology 02/23/21 documented as of this encounter
--- OUTSIDE RECORDS SUMMARY | 2025-03-15 13:00 | XMS_ITS | Encounter Summary ---
Author Organization [facility] Facility Care Team Providers Care Funeral Car Chauffeur Name Role Phone Park Cunha Primary Care Pr ovider Park Cunha Primary Care Pr ovider Park Cunha Primary Care Pr ovider Isaiah Rendon MD Unavailable [phone] Jose Guadalupe Sweeney MD Unavailable [phone] Encounter Details Date Type Department Care Team (Latest Contact Info) Description 05/24/2016 Orders Only [facility] CLINCONV ProviderSouleymane MD [address] [place] [address] Social History Tobacco Use Types Packs/Day Years Used Date Smoking Tobacco: Never Assessed Sex and Gender Information Value Date Recorded Sex Assigned at Not on file Legal Sex Male 2:33 AM ASSET PROTECTION GREETER Gender Identity Male 09/19/2024 10:05 AM CDT Sexual Orientation Straight 09/19/2024 10 :05 AM CDT documented as of this encounter Plan of Treatment Not on file documented as of this encounter Procedures Procedure Name Priority Date/Time Associated Diagnosis Comments PROCEDURE - RESULT 05/24/2016 12 :00 AM CDT documented in this encounter Results * PROCEDURE - RESULT (05/24/2016 12:00 AM CDT) Narrative 05/24/2016 12:00 AM CDT Ordered by an unspecified provider. us Historical Provider Final Res ult documented in this encounter Visit Diagnoses Not on filedocumented in this encounter Additional Health Concerns Infection Onset Date Last Indicated Resolved Time C. difficile Comment:01/201502/16/2015 02/15/2015 11/28/2022 8:[address] documented as of this encounter Care Teams Funeral Car Chauffeur Relationship Specialty Start Date End Date Park Cunha PA PCP - General 02/28/17 Park Cunha PA PCP - General 01/14/17 02/27/17 Park Cunha PA PCP - General 01/07/17 01/13/17 Isaiah Rendon MD Radiation Oncologist Radiation Oncology 02/21/20 Jose Guadalupe Sweeney MD [address] [place] [address] Digging Machine Operator Cardiology 02/23/21 documented as of this encounter
== END 2025-03-15 11:46 | disposition home or self-care (01) ==
PROVIDERS: PCP Physician Assistant; Visit Provider Physician Assistant
DX: E11.9 Type 2 diabetes mellitus without complications (principal); Z79.899 Other long term (current) drug therapy
CPT/HCPCS: 36415; 80048; 80076; 83036; 85025

== ENCOUNTER 2025-03-18 10:22 | Outpatient (CLI) | payer MEDICARE, SELFPAY ==
--- NOTE | ~2025-03-18 | XR_ITS ---
[id number] Ordering provider: Park Cunha, TREVON History: . Cervicalgia, low back pain . Comparison: None. FINDINGS: VERTEBRAL BODIES: Normal height and alignment. No visible fracture or subluxation. The dens is intact . DISK SPACES: Narrowing of the level of C3-C4, C5-C6 and C6-C7. Multilevel uncovertebral joint osteoar thritic changes. PARASPINOUS SOFT TISSUES: No prevertebral soft tissue swelling. IMPRESSION: No acute osseous abnormality cervical spine. Multilevel degenerative disc disease. Reviewed, dictated and finalized at location A.
--- NOTE | ~2025-03-18 | XR_ITS ---
Lumbosacral Spine: AP and lateral views Clinical History: Pain Findings: The normal lordotic curve is maintained. No fracture or subluxation. There is multilevel mo derate to advanced degenerative disc narrowing throughout the lumbar spine, worst from L4 through S1. There is moderate to advanced facet arthropathy, again worst at L4-L5. The sacroiliac joints are nor reid outlined. Impression: Moderate to advanced degenerative spondylosis, worst at the lower lumbar spine. Reviewed, dictated and finalized at location M. Impression: Moderate to advanced degenerative spondylosis, worst at the lower lumbar spine.
--- NOTE | ~2025-03-18 | XR_ITS ---
HISTORY: Cervicalgia, low back pain COMPARISON: None TECHNIQUE: 2 views of the bilateral ribs were performed along with a frontal view of the chest FINDINGS: No acute displaced fracture is appreciated. Bone mineralization is age-appropriate. The cardiac mediastinal silhouette is unremarkable. The lungs are clear. Elevation of the left hemidiaphragm is identified with a large (presumably gastric) bubble. IMPRESSION: No acute displaced rib fracture is detected bilaterally. The lungs are clear. Reviewed, dictated and finalized at location A.
--- OUTSIDE RECORDS SUMMARY | 2025-03-18 10:30 | XMS_ITS | Continuity of Care Document ---
Author Organization [facility]. If a dditional information is needed, contact Health Information Management at [phone] Address [address] [place] [address] Phone Care Team Providers Care Nuclear Instructor Name Role Phone Unavailable Unavailable Unavailable Mental [...] Ambulatory 03-Apr-2017 12:08 Nayla Perrin MD (Attending) [facility] Ambulatory 20-Mar-2017 13:14 Nayla Perrin MD (Attending) [facility] pre-admission 17-Feb-2017 09:40 Nayla Perrin MD (Attending) [facility]
--- OUTSIDE RECORDS SUMMARY | 2025-03-18 10:30 | XMS_ITS ---
Author Organization [facility] Address [address] [place] [address] Care Team Providers Care Registered Nurse Midwife Name Role Phone Park Cunha Primary Care Pr ovider Jose Guadalupe Sweeney MD Unavailable [phone] Active Problems Problem Noted Date Diagnosed Date Velopharyngeal insufficiency, acquired Obstructive sleep apnea 02/13/2024 IDALMIS (obstructive sleep apnea) 09/26/2023 Paroxysmal ventricular tachycardia 01/17/2023 Assessment & Plan (01/17/2023 10:16 AM CUSTOMIZER): On the event monitor patient had 2 [...] 11/28/2022 Assessment & Plan (01/17/2023 10:17 AM CUSTOMIZER): No further syncope noted. It appears that [...] 04/19/2022 Assessment & Plan (01/17/2023 10:17 AM CUSTOMIZER): Blood pressure is well controlled. Continue low-salt diet which I discussed with him. Continue amlodipine and metoprolol. Mixed hyperlipidemia 10/19/2021 Assessment & Plan (01/17/2023 10:17 AM CUSTOMIZER): Lipid panel looks good along with LFTs. Continue Crestor and heart healthy diet which I discussed with patient. I will check his Chem 12, magnesium and lipids prior to next appointment. Lumbosacral radiculopathy 09/06/2021 Obstructive sleep apnea syndrome 05/18/2021 Orthostatic dizziness 11/10/2020 Gastroesophageal reflux disease without esophagi tis 07/14/2020 Overview (07/14/2020): Added automatically from request for surgery [id number] Dysphagia 07/14/2020 Overview (07/14/2020): Added automatically from request for surgery [id number] Gastric ulcer 07/14/2020 Overview (07/14/2020): Added automatically from request for surgery [id number] Oropharyngeal dysphagia 07/14/2020 Overview (07/14/2020): Added automatically from request for surgery [id number] GERD (gastroesophageal reflux disease) 0 Bilateral lower extremity edema 11/05/2019 Venous insufficiency 10/01/2019 Overview (10/01/2019): Added automatically from request for surgery [id number] Precordial chest pain 03/12/2019 Metastatic carcinoma to lung, left 07/28/2018 Malignant (primary) neoplasm, unspecified 2017 Polyneuropathy in diseases classified elsewhere 12/19/2017 Erectile disorder due to medical condition in ma le 07/18/2017 Disorder of cardiac function 05/14/2017 Cardiomyopathy 05/02/2017 Overview (09/02/2022): At [facility] his echo showed a visually estimated ejection [...] 07/10/2016 Assessment & Plan (01/17/2023 10:18 AM CUSTOMIZER): No clinical angina noted. Continue aspirin. Encouraged [...]
--- OUTSIDE RECORDS SUMMARY | 2025-03-18 10:30 | XMS_ITS | Encounter Summary ---
Author Organization [facility] Facility Care Team Providers Care In Classroom Tutor Name Role Phone Park Cunha Primary Care Pr ovider Park Cunha Primary Care Pr ovider Park Cunha Primary Care Pr ovider Isaiah Rendon MD Unavailable [phone] Jose Guadalupe Sweeney MD Unavailable [phone] Encounter Details Date Type Department Care Team (Latest Contact Info) Description 06/21/2016 Orders Only [facility] CLINCONV ProviderSouleymane MD [address] [place] [address] Social History Tobacco Use Types Packs/Day Years Used Date Smoking Tobacco: Never Assessed Sex and Gender Information Value Date Recorded Sex Assigned at Not on file Legal Sex Male 2:33 AM ETL DEVELOPER Gender Identity Male 09/19/2024 10:05 AM CDT [...] documented as of this encounter Care Teams In Classroom Tutor Relationship Specialty Start Date End Date Park Cunha PA PCP - General 02/28/17 Park Cunha PA PCP - General 01/14/17 02/27/17 Park Cunha PA PCP - General 01/07/17 01/13/17 Isaiah Rendon MD Radiation Oncologist Radiation Oncology 02/21/20 Jose Guadalupe Sweeney MD [address] [place] [address] Technical Sales Support Manager Cardiology 02/23/21 documented as of this encounter
--- OUTSIDE RECORDS SUMMARY | 2025-03-18 10:30 | XMS_ITS | Encounter Summary ---
Author Organization [facility] Care Team Providers Care Residence Life Coordinator Name Role Phone Park Cunha Primary Care Pr ovider Park Cunha Primary Care Pr ovider Park Cunha Primary Care Pr ovider Isaiah Rendon MD Unavailable [phone] Jose Guadalupe Sweeney MD Unavailable [phone] Encounter Details Date Type Department Care Team (Latest Contact Info) Description 05/24/2016 Orders Only [facility] CLINCONV ProviderSoulyemane MD [address] [place] [address] Social History Tobacco Use Types Packs/Day Years Used Date Smoking Tobacco: Never Assessed Sex and Gender Information Value Date Recorded Sex Assigned at Not on file Legal Sex Male 2:33 AM FARM CONSULTANT Gender Identity Male 09/19/2024 10:05 AM CDT [...] documented as of this encounter Care Teams Residence Life Coordinator Relationship Specialty Start Date End Date Park Cunha PA PCP - General 02/28/17 Park Cunha PA PCP - General 01/14/17 02/27/17 Park Cunha PA PCP - General 01/07/17 01/13/17 Isaiah Rendon MD Radiation Oncologist Radiation Oncology 02/21/20 Jose Guadalupe Sweeney MD [address] [place] [address] Support Associate Cardiology 02/23/21 documented as of this encounter
--- OUTSIDE RECORDS SUMMARY | 2025-03-18 10:30 | XMS_ITS | Encounter Summary ---
Author Organization [facility] Facility Care Team Providers Care Paint Mixer Machine Name Role Phone Park Cunha Primary Care Pr ovider Isaiah Rendon MD Unavailable [phone] Jose Guadalupe Sweeney MD Unavailable [phone] Encounter Details Date Type Department Care Team (Latest Contact Info) Description 04/16/2017 Orders Only [facility] CLINCONV ProviderSouleymane MD [address] [place] [address] Social History Tobacco Use Types Packs/Day Years Used Date Smoking Tobacco: Never Assessed Sex and Gender Information Value Date Recorded Sex Assigned at Not on file Legal Sex Male 2:33 AM PRESTIDIGITATOR Gender Identity Male 09/19/2024 10:05 AM CDT [...] documented as of this encounter Care Teams Paint Mixer Machine Relationship Specialty Start Date End Date Park Cunha PA PCP - General 02/28/17 Isaiah Rendon MD Radiation Oncologist Radiation Oncology 02/21/20 Jose Guadalupe Sweeney MD [address] [place] [address] Rn Recruitment Cardiology 02/23/21 documented as of this encounter
--- OUTSIDE RECORDS SUMMARY | 2025-03-18 10:30 | XMS_ITS | Encounter Summary ---
Author Organization [facility] Address [address] [facility] [place] [address] Care Team Providers Care Operators School Manager Name Role Phone Alex Crum MD Primary Care Provider [phone] Park Neff Primary Care Pr ovider Encounter Details Date Type Department Care Team (Late st Contact Info) Description 08/27/2022 Lab Requisition [facility] Care DermPath Lab [address] [place] [address] Nick Morrison MD [address] [facility] [address] Social History Tobacco Use Types Packs/Day Years [...] AM CDT) Case Report Dermatopathology Report Case: [id number] Authorizing Provider: Nick Morrison MD Collected: 08/23/2022 12:00 AM Ordering Location: [facility] Care DermPath Lab Received: 08/27/2022 08:54 AM Pathologist: Linda Jones MD Specimens: A) - Skin, left alar crease B) - Skin, right nose tip 1:00 PM [facility] DERMATOPATH[facility]Y [facility]ORAT[facility] Final Diagnosis Specimen A. SKIN, left alar crease: BASAL CELL CARCINOMA, NODULAR TYPE (C44.311) (see microscopic description) Specimen B. 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 BCCA path #[id number]. B:Dewey Hyperplatia path #[id number]. 1:00 PM [facility] DERMATOPATHOLOGY [facility]ORAT[facility] Gross Description Specimen A: Received [...] measuring 4x3x1 mm. Jar 0. 1:00 PM [facility] DERMATOPATHOLOGY LABORATORY Microscopic Description Specimen A. SKIN, [...] sections were obtained and reviewed. 1:00 PM [facility] DERMATOPATHOLOGY [facility]ORATORY Disclaimer An external and internal positive and negative controls are appropriate for the histochemical, immunohistochemical and immunofluorescence stain(s) in this case (if any), except where stated explicitly. The performance characteristics of the stain(s) cited in this report were developed and its performance characteristic determined by the Dermatopathology Laboratory at [facility], directed by Dr. Dann Florian. These tests need not be, and therefore are not, approved by the [place] Food and Drug Administration. The tests are used for clinical purposes. Billing Codes Specimen Charges Stain Charges 27107 77531 1 1 72976 27518 1 1 2 1:00 PM CDT DERMATOPATHOLOGY LABORATORY Embedded Images 2 1:00 PM CDT DERMATOPATHOLOGY LABORATORY Pathology/Cytology TISSUE SPECIMEN FROM SKIN / Unknown 08/23/2022 08/27/2022 8:54 AM CDT Miscellaneous samples (specimen) TISSUE SPECIMEN FROM SKIN / Unknown 08/23/2022 08/27/2022 8:54 AM CDT Nick Morrison MD LAB - PATHOLOGY/CYTOLOGY ORDER LYNSEY Final Result DERMATOPATHOLOGY LABORATORY [facility] - Department of Dermatology [facility] Medicine [address] [place] [address], [address] [phone] documented in this encounter Visit Diagnoses Not on filedocumented in this encounter Care Teams Operators School Manager Relationship Specialty Start Date End Date Alex Crum MD [address] [place] [id number] PCP - General 08/27/22 11/19/22 Park Neff PA [address] [place] [id number] PCP - General 11/20/22 documented as of this encounter
--- OUTSIDE RECORDS SUMMARY | 2025-03-18 10:30 | XMS_ITS | Clinical Summary ---
Author Organization [facility] Address [address] [place] [address] Care Team Providers Care Plc Programmer Name Role Phone Park Cunha Primary Care Pr ovider Jose Guadalupe Sweeney MD Unavailable [phone] Allergies Active Allergy Reactions Criticality Noted Date [...] 01/17/2023 Assessment & Plan (01/17/2023 10:16 AM LABOR SUPERVISOR): On the event monitor patient had 2 [...] 11/28/2022 Assessment & Plan (01/17/2023 10:17 AM LABOR SUPERVISOR): No further syncope noted. It appears that [...] 04/19/2022 Assessment & Plan (01/17/2023 10:17 AM LABOR SUPERVISOR): Blood pressure is well controlled. Continue low-salt diet which I discussed with him. Continue amlodipine and metoprolol. Mixed hyperlipidemia 10/19/2021 Assessment & Plan (01/17/2023 10:17 AM LABOR SUPERVISOR): Lipid panel looks good along with LFTs. Continue Crestor and heart healthy diet which I discussed with patient. I will check his Chem 12, magnesium and lipids prior to next appointment. Lumbosacral radiculopathy 09/06/2021 Obstructive sleep apnea syndrome 05/18/2021 Orthostatic dizziness 11/10/2020 Gastroesophageal reflux disease without esophagi tis 07/14/2020 Overview (07/14/2020): Added automatically from request for surgery [id number] Dysphagia 07/14/2020 Overview (07/14/2020): Added automatically from request for surgery [id number] Gastric ulcer 07/14/2020 Overview (07/14/2020): Added automatically from request for surgery [id number] Oropharyngeal dysphagia 07/14/2020 Overview (07/14/2020): Added automatically from request for surgery [id number] GERD (gastroesophageal reflux disease) 0 Bilateral lower extremity edema 11/05/2019 Venous insufficiency 10/01/2019 Overview (10/01/2019): Added automatically from request for surgery [id number] Precordial chest pain 03/12/2019 Metastatic carcinoma to lung, left 07/28/2018 Malignant (primary) neoplasm, unspecified 2017 Polyneuropathy in diseases classified elsewhere 12/19/2017 Erectile disorder due to medical condition in ma le 07/18/2017 Disorder of cardiac function 05/14/2017 Cardiomyopathy 05/02/2017 Overview (09/02/2022): At [facility] his echo showed a visually estimated ejection [...] 07/10/2016 Assessment & Plan (01/17/2023 10:18 AM LABOR SUPERVISOR): No clinical angina noted. Continue aspirin. Encouraged him to continue his walking. Advised him to contact me if he has any symptoms. History of hypertension 07/10/2016 Syncope 07/10/2016 Renal mass 05/23/2016 Resolved Problems Problem Noted Date Diagnosed Date Resolved Date Dyslipidemia 03/12/2019 10/19/2021 Essential hypertension 03/12/201904/19 Encounters Date Type Department Care Team Description 02/25/2025 10:20 AM CDT Office Visit [facility] - [facility] ENT [address] [place] [address] [place] [address] Angelic Judd MD IDALMIS (obstructive sleep apnea) (Primary Dx); Intolerance of continuous positive airway pressure (CPAP) ventilation; S/P UPPP (uvulopalatopharyngop lasty); Insomnia, unspecified type; Nocturia more than twice per night 12/24/2024 10:00 AM LABOR SUPERVISOR Office Visit [facility] - [facility] ENT [address] [place] [address] [place] [address] Basim Garcia MD Laryngocele (Primary Dx) from Last 3 Months Immunizations Immunization Administration Dates Next Due Influenza, Quad, Adjuvantate d, Intramuscular 09/03/2020 Influenza, Quadrivalent, Hig h Dose, Preservative Free, Intrr 12/31/2023 Influenza, Trivalent, Cell C ulture-based MDCK, Preservative Free, Antibiotic Free, Intramuscular 12/02/2017 Influenza, Trivalent, Preser vative Free, Intramuscular 10/26/2015 Influenza, Unspecified 01/02/2017,10/26/2015,12/2014 Surgical History Surgery Date Site/Laterality Comments AR RPR UMBILICAL HERNIA < 5 YRS REDUCIBLE [...] 1 Nabila Rossi Cancer Sister 2 Josefina Luhaian Lymphoma Sister 2 Josefina Drew Anesthesia problems [...] on file Legal Sex Male 2:33 AM LABOR SUPERVISOR Gender Identity Male 09/19/2024 10:05 AM CDT Sexual Orientation Straight 09/19/2024 10 :05 AM CDT Obstetrics History Last Filed Vital Signs Vital Sign Reading Time Taken Comments Blood Pressure 120/61 10/18/2024 9:28 AM LABOR SUPERVISOR Pulse 63 10/18/2024 9:28 AM LABOR SUPERVISOR Temperature 36.5 C (97.7 F) 10/18/2024 9:28 AM LABOR SUPERVISOR Respiratory Rate 16 10/18/2024 9:28 AM LABOR SUPERVISOR Oxygen Saturation 95% 10/18/2024 9:28 AM LABOR SUPERVISOR Inhaled Oxygen Concentration - - Weight 94.3 [...] 03/09/2021 02/09/2021, 01/12/2021 Influenza Vaccine (#1) 2024 4, 09/03/2020, 12/02/2017, Additional history exists Fall Risk [...] home safety. Medical Devices Implanted Type Area Director On Air Device Identifier Shelf Expiration Date Model / Serial / Lot Knee Replacement Bilateral: Knee [employer] Encore Suspension Adjustable Knotless Bone [place] Self Guided [id number] - [id number] - [id number] Implanted:Qty: 1 on 12/31/2023 by Angelic Judd MD at [facility] Advanced Medicine N/A: Mouth [employer] [id number] 09/30/2025 [id number] / [id number] / [id number] [employer] Gel Skin Juvederm Ultra Xc Latex Free [id number] - [id number] Implanted:Qty: 1 on 04/07/2024 by Angelic Judd MD at [facility] Advanced Medicine N/A: Pharynx [employer] [id number] 10/04/2024 [id number] / / [id number] Description:Posterior wall Procedures Procedure Name Priority Date/Time Associated Diagnosis Comments PSA SCREEN Routine 11/05/2023 11:43 AM LABOR SUPERVISOR Prostate cancer screening from Last 3 Months or Most Recently Relevant to Health Maintenance Results * PSA screen (11/05/2023 11:43 AM LABOR SUPERVISOR) PSA-Total 3.79 <=6.20 ng/mL ALISIA SANCHEZ Comment: [...] revised 22. Blood 11/05/2023 11:4 3 AM LABOR SUPERVISOR 11/05/2023 6:21 PM LABOR SUPERVISOR Berenice Ram SALES ENABLEMENT ANALYST LAB BLOOD ORDERABLES Final Re sult ALISIA SANCHEZ [address] Department of Laboratories [place] [phone] from Last 3 Months or Most Recently Relevant to Health Maintenance Insurance SPECIAL CONTRACT ARRANGEMENT MEDICARE [facility] MEDICARE MEDICARE MEDICARE [facility] MEDICARE Advance Directives For more information, please contact: [phone] * Full Code (Latest Code Status on [...] 1:17 PM 05/01/2020 8:21 PM Care Teams Plc Programmer Relationship Specialty Start Date End Date Park Cunha PA PCP - General 02/28/17 Jose Guadalupe Sweeney MD [address] [place] [address] Pre Press Manager Cardiology 02/23/21
--- OUTSIDE RECORDS SUMMARY | 2025-03-18 10:30 | XMS_ITS | Encounter Summary ---
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 Name Role Phone Park Neff Primary Care Pr ovider Encounter Details Date Type Department Care Team (Late st Contact Info) Description 07/25/2023 Lab Requisition [facility] - DermPath Lab [address] [place] [id number] Nick Morrison MD [address] [place] [address] Social History Tobacco Use Types Packs/Day Years [...] AM CDT) Case Report Dermatopathology Report Case: [id number] Authorizing Provider: Nick Morrison MD Collected: 07/24/2023 12:00 AM Ordering Location: [facility] DermPath Lab Received: 07/25/2023 09:57 AM [...] characteristic determined by the Dermatopathology Laboratory at [facility], directed by Dr. Dann Florian. These tests need not be, and therefore are not, approved by the [place] Food and Drug Administration. The tests are used for clinical purposes. Billing Codes Specimen Charges Stain Charges 21760 1 3 3:31 PM CDT DERMATOPATHOLOGY LABORATORY Embedded Images 3 3:31 PM CDT DERMATOPATHOLOGY LABORATORY Pathology/Cytolog y TISSUE SPECIMEN FROM SKIN / Unknown 07/24/2023 07/25/2023 9:57 AM CDT us Nick Morrison MD LAB - PATHOLOGY/CYTOLOGY ORDER LYNSEY Final Result DERMATOPATHOLOGY LABORATORY [facility] - Department of Dermatology [address] [phone] documented in this encounter Visit Diagnoses Not on filedocumented in this encounter Care Teams Weed Cutter Relationship Specialty Start Date End Date Park Neff PA [address] [place] [address] PCP - General 11/20/22 documented as of this encounter
--- OUTSIDE RECORDS SUMMARY | 2025-03-18 10:30 | XMS_ITS | Referral Summary ---
Author Organization [facility] Address [address] [place] [address] Care Team Providers Care Telephone Answering Service Operator Name Role Phone Park Cunha Primary Care Pr ovider Jose Guadalupe Sweeney MD Unavailable [phone] Encounters Date Type Department Care Team Description 02/25/2025 10:20 AM CDT [facility] - [facility] ENT [address]th [place] [address] [place] [phone] Angelic Judd MD IDALMIS (obstructive sleep apnea) (Primary Dx); Intolerance of continuous positive airway pressure (CPAP) ventilation; S/P UPPP (uvulopalatopharyngop lasty); Insomnia, unspecified type; Nocturia more than twice per night 12/24/2024 10:00 AM MOTOR CHECKER Office [facility] - [facility] ENT [address] [place] [address] [place] [phone] Basim Garcia MD Laryngocele (Primary Dx) from Last 3 Months Allergies Active Allergy [...] 01/17/2023 Assessment & Plan (01/17/2023 10:16 AM MOTOR CHECKER): On the event monitor patient had 2 [...] 11/28/2022 Assessment & Plan (01/17/2023 10:17 AM MOTOR CHECKER): No further syncope noted. It appears that [...] 04/19/2022 Assessment & Plan (01/17/2023 10:17 AM MOTOR CHECKER): Blood pressure is well controlled. Continue low-salt diet which I discussed with him. Continue amlodipine and metoprolol. Mixed hyperlipidemia 10/19/2021 Assessment & Plan (01/17/2023 10:17 AM MOTOR CHECKER): Lipid panel looks good along with LFTs. Continue Crestor and heart healthy diet which I discussed with patient. I will check his Chem 12, magnesium and lipids prior to next appointment. Lumbosacral radiculopathy 09/06/2021 Obstructive sleep apnea syndrome 05/18/2021 Orthostatic dizziness 11/10/2020 Gastroesophageal reflux disease without esophagi tis 07/14/2020 Overview (07/14/2020): Added automatically from request for surgery [id number] Dysphagia 07/14/2020 Overview (07/14/2020): Added automatically from request for surgery [id number] Gastric ulcer 07/14/2020 Overview (07/14/2020): Added automatically from request for surgery [id number] Oropharyngeal dysphagia 07/14/2020 Overview (07/14/2020): Added automatically from request for surgery [id number] GERD (gastroesophageal reflux disease) 0 Bilateral lower extremity edema 11/05/2019 Venous insufficiency 10/01/2019 Overview (10/01/2019): Added automatically from request for surgery [id number] Precordial chest pain 03/12/2019 Metastatic carcinoma to lung, left 07/28/2018 Malignant (primary) neoplasm, unspecified 2017 Polyneuropathy in diseases classified elsewhere 12/19/2017 Erectile disorder due to medical condition in ma le 07/18/2017 Disorder of cardiac function 05/14/2017 Cardiomyopathy 05/02/2017 Overview (09/02/2022): At [facility] his echo showed a visually estimated [...] 07/10/2016 Assessment & Plan (01/17/2023 10:18 AM MOTOR CHECKER): No clinical angina noted. Continue aspirin. Encouraged [...] on file Legal Sex Male 2:33 AM MOTOR CHECKER Gender Identity Male 09/19/2024 10:05 AM CDT Sexual Orientation Straight 09/19/2024 10 :05 AM CDT Last Filed Vital Signs Vital Sign Reading Time Taken Comments Blood Pressure 120/61 10/18/2024 9:28 AM MOTOR CHECKER Pulse 63 10/18/2024 9:28 AM MOTOR CHECKER Temperature 36.5 C (97.7 F) 10/18/2024 9:28 AM MOTOR CHECKER Respiratory Rate 16 10/18/2024 9:28 AM MOTOR CHECKER Oxygen Saturation 95% 10/18/2024 9:28 AM MOTOR CHECKER Inhaled Oxygen Concentration - - Weight 94.3 [...] home safety. Medical Devices Implanted Type Area Log Sorting Supervisor Device Identifier Shelf Expiration Date Model / Serial / Lot Knee Replacement Bilateral: Knee Eye [employer] Encore Suspension Adjustable Knotless Bone [place] Self Guided [id number] - [id number] - [id number] Implanted:Qty: 1 on 12/31/2023 by Angelic Judd MD at [facility] Advanced Medicine N/A: Mouth [employer] [id number] 09/30/2025 [id number] / [id number] / [id number] [employer] Gel Skin Juvederm Ultra Xc Latex Free [id number] - [id number] Implanted:Qty: 1 on 04/07/2024 by Angelic Judd MD at [facility] Advanced Medicine N/A: Pharynx [employer] [id number] 10/04/2024 [id number] / / [id number] Description:Posterior wall Procedures Procedure Name Priority Date/Time Associated Diagnosis Comments PSA SCREEN Routine 11/05/2023 11:43 AM MOTOR CHECKER Prostate cancer screening from Last 3 Months or Most Recently Relevant to Health Maintenance Results * PSA screen (11/05/2023 11:43 AM MOTOR CHECKER) PSA-Total 3.79 <=6.20 ng/mL ALISIA SANCHEZ Comment: [...] revised 22. Blood 11/05/2023 11:4 3 AM MOTOR CHECKER 11/05/2023 6:21 PM MOTOR CHECKER us Berenice Ram NP LAB BLOOD ORDERABLES Final Re sult ALISIA SANCHEZ [address] Department [place] [address] from Last 3 Months or Most Recently Relevant to Health Maintenance Insurance SPECIAL CONTRACT ARRANGEMENT MEDICARE [facility] MEDICARE Member Subscriber Plan / Payer ( fective 2018-Present) Name:Will Woodward Member ID:[id number] Relation to Subscriber:Self Name:Will Woodward Subscriber ID:[id number] Payer ID:[id number] Group ID:Not on file Type:MEDICARE TRADITIONAL Address: [place] [id number] MEDICARE MEDICARE [facility] MEDICARE Advance Directives For more information, please contact: [phone] * Full Code (Latest Code Status on [...] 1:17 PM 05/01/2020 8:21 PM Care Teams Telephone Answering Service Operator Relationship Specialty Start Date End Date Park Cunha PA PCP - General 02/28/17 Jose Guadalupe Sweeney MD [address] [place] [address] 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
--- OUTSIDE RECORDS SUMMARY | 2025-03-18 10:30 | XMS_ITS | Data Portability ---
Author Organization [facility] Address [address] [place] [address] Care Team Providers Care Quality Improvement Consultant Name Role Phone PARK CUNHA Primary Care Provider Unavailab le Assessment Encounter Date Assessment Date Assessment LastModified by Organization Details LastModified Time 05/07/2024 05/07/2024 Colonoscopy screening at [facility], dr. goetz. Not available 05/07/2024 10:01:56 11/05/2024 11/05/2024 Colonoscopy screening at [facility], dr. goetz. Not available 11/05/2024 10:40:15 Plan of Treatment Reminders Order Date Submit Date Provider Last Modified By Organization Details Last Modified Time Details Appointments ANY 15 2024 09:30A M ELLIOT Suarez Not available Not available Not available ANY 15 2024 09:30A M ELLIOT Suarez Not available Not available Not available Lab HbA1c (hemoglob in A1c), blood 2023 025 [employer] [facility], [address] [facility], [place], [address], 03/16/2025 11:36:45 BMP, serum or plasma 2023 025 [employer] [facility], [address] [facility], [place], [address], 03/16/2025 11:36:45 CBC w/ auto diff 2023 025 [email or web address] [facility], [address] [facility], [place], [address], 03/18/2025 10:43:35 hepatic function panel, serum 2023 025 [email or web address], [address], [place], [address], 03/01/2025 09:10:45 HbA1c (hemoglob in A1c), blood 2023 024 ERIC [facility], [address], [place], [address], 06/22/2024 16:24:05 BMP, serum or plasma 2023 024 [email or web address] [facility], [address], [place], [address], 06/22/2024 16:48:05 CBC w/ auto diff 2023 024 [email or web address] [facility], [address], [place], [address], 07/09/2024 12:00:59 hepatic function panel, serum 2023 024 [facility], [address], [place], [address], 07/09/2024 12:00:59 vitamin B12 + folate, serum or blood 2023 024 [email or web address] [facility], [address], [place], [address], 06/22/2024 16:48:05 TSH + free T4, serum 2023 024 [email or web address] [facility], [address], [place], [address], 06/22/2024 16:48:05 Referral urologist referral 2023 024 [email or web address] [facility] [place], [address] , [address], [address], 03/01/2025 15:49:46 Procedures None recorded. Surgeries None recorded. Imaging None recorded. Medication Orders None recorded. Patient TargetsNo targets recorded. Patient Instructions Encounter Date Encounter Id Patient Instructions Last Modified By Organization Details Last Modified Time 09/08/2024 [id number] A healthy lifestyle: care instructions Not available 09/08/2024 10:45:19 Reason for Referral Urologist Referral for Incre ased frequency of urination Referring Physician: Park Cunha, Internal Medicine, Encounter Date: 11/05/2024 Results Created Date Observation Date Name Description Value Unit Range Abnormal Flag Note LastModifiedBy Organization Detail LastModifiedTime 09/01/2009/01/2024 Lipid 1996 panel - Serum or Plasm a cholesterol [mass/volume ] in serum or plasma 91 text: <200 mg/dL KESHAV STERO L 91 <200 MG/DL 09/01 10:[address] [facility] Not Available Not Available 02/11/2025 08:50:43 09/01/2009/01/2024 Lipid 1996 panel - Serum or Plasm a triglyceride [mass/volume ] in serum or plasma 60 text: <150 mg/dL TRIGL YCERI GM 60 <150 MG/DL 09/01 10:[address] [facility] Not Available Not Available 02/11/2025 08:50:43 09/01/2009/01/2024 Lipid 1996 panel - Serum or Plasm a cholesterol in HDL [mass/volume ] in serum or plasma 43 text: >40.0 mg/dL HDL 43 >40.0 MG/DL 09/01 10:[address] [facility] Not Available Not Available 02/11/2025 08:50:43 09/01/2009/01/2024 Lipid 1996 panel - Serum or Plasm a cholesterol in LDL [mass/volume ] in serum or plasma by calculation 36 text: <100 mg/dL LDL (CALC ULATE D) 36 <100 MG/DL 09/01 10:[address] [facility] Not Available Not Available 02/11/2025 08:50:43 09/01/2009/01/2024 Lipid 1996 panel - Serum or Plasm a cholesterol non HDL [mass/volume ] in serum or plasma 48 text: <130 mg/dL NON HDL KESHAV STERO L 48 <130 MG/DL 09/01 10:[address] [facility] Not Available Not Available 02/11/2025 08:50:43 09/01/2009/01/2024 Lipid 1996 panel - Serum or Plasm a cholesterol. total/choles terol in HDL [mass ratio] in serum or plasma 2.1 low: 0high: 4.5 CHOL/ HDL RATIO 2.1 0.0 - 4.5 09/01 10:[address] [facility] Not Available Not Available 02/11/2025 08:50:43 09/01/2009/01/2024 Lipid 1996 panel - Serum or Plasm a cholesterol in VLDL [mass/volume ] in serum or plasma by calculation 12 text: 5 - 55 mg/dL VLDL CALCU LATIO N 12 5 - 55 MG/DL 09/01 10:[address] [facility] Not Available Not Available 02/11/2025 08:50:43 09/01/2009/01/2024 Lipid 1996 panel - Serum or Plasm a service comment LIPID INTER PRETA TION 09/01 10:34 AM CDT [facility] Not Available Not Available 02/11/2025 08:50:43 09/02/2009/01/2024 XR, hand No observ ation record ed. [email or web address] [place] [address] [address], [place], [address], 09/02/2024 14:10:49 11/01/2010/25/2024 PFT, compl ete No observ ation record ed. [facility] - Neurology [address] [facility] [address], '[place], [address], 11/26/2024 09:45:26 Result Notes None recorded. Problems Name Problem SNOMED Code Status Onset Date Resolution Date Notes Provider Name and Address Organization Details Recorded Time Long-term drug therapy Active 2023 ELLIOT Suarez Attn: Gissell cordero,[address], [place], [address], [place] [facility] 4 09:42:01 History of cancer metastatic to lung 2825224223169 105 Active 2023 ELLIOT Suarez Attn: Accountmelissa g,[address], [place], [address], [place] [facility] 4 09:42:01 Family history of renal cell carcinoma 556010485 Active 2023 ELLIOT Suarez Attn: Accountin g,[address] [facility], [place], [address], [place] [facility] 4 09:42:02 Mixed anxiety and depressive disorder 207939403 Active 2023 ELLIOT Suarez Attn: Accountin g,[address] [facility], [place], [address], [place] [facility] 4 09:42:03 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 467021402 Active 2023 ELLIOT Suarez Attn: Accountin g,[address] [facility], [place], [address], [place] [facility] 4 09:42:04 Gastroesoph ageal reflux disease without esophagitis 114717686 Active 2023 ELLIOT Suarez Attn: Accountin g,[address] [facility], [place], [address] [facility] 4 09:42:06 Hyperlipide jaqueline 67544970 Active 2023 ELLIOT Suarez Attn: Accountin g,[address] [facility], [place], [address], [place] [facility] 4 09:42:06 Benign essential hypertensio n 9220696 Active 2023 ELLIOT Suarez Attn: Accountin g,[address] [facility], [place], [address], [place] [facility] 4 09:42:08 Obstructive sleep apnea syndrome 83287506 Active 2023 ELLIOT Suarez Attn: Accountin g,[address] [facility], [place], [address], [place] [facility] 4 09:56:27 Body mass index 25-29 - overweight 454830663 Active 2023 ELLIOT Suarez Attn: Accountin g,[address] [facility], [place], [address], [place] [facility] 4 10:02:10 Blood glucose outside reference range 090583142 Active 2023 ELLIOT Suarez Attn: Accountin g,[address] [facility], [place], [address], [place] [facility] 4 17:03:47 Chronic low back pain 492642100 Active 2023 ELLIOT Suarez Attn: Accountin g,[address] [facility], [place], [address], [place] [facility] 4 17:04:34 Chronic neck pain 4371546564946 Active 2023 ELLIOT Suarez Attn: Accountin g,[address] [facility], [place], [address], [place] [facility] 4 17:04:43 Type 2 diabetes mellitus without complicatio n 287493715 Active 2023 ELLIOT Suarez Attn: Accountin g,[address] [place], [address], [place] [facility] 4 13:37:20 Overweight 110706765 Active 2023 ELLIOT Suarez Attn: Gissell cordero,[address] [facility], [place], [address] [facility] 4 13:37:22 History of malignant neoplasm of kidney 376459116 Active 2023 ELLIOT Suarez Attn: Gissell cordero,[address] [facility], [place], [address], [place] [facility] 4 10:29:28 Increased frequency of urination 694805465 Active 2023 ELLIOT Suarez Attn: Gissell cordero,[address] [facility], [place], [address], [place] [facility] 4 10:31:22 Overweight in adulthood with body mass index of 25 or more but less than 30 171339929 Active 2024 ELLIOT Suarez Attn: Gissell cordero,[address] [facility], [place], [address] [facility] 5 10:41:57 Nocturia due to benign prostatic hypertrophy 7688142364317 Active 2024 ELLIOT Suarez Attn: Gissell cordero,[address] [facility], [place], [address] [facility] 5 10:46:16 Dry eyes 161421759 Active 2024 ELLIOT Suarez Attn: Gissell cordero,[address] [facility], [place], [address] [facility] 5 10:46:55 Chronic kidney disease stage 3A 658250812 Active 2024 ELLIOT Suarez Attn: Gissell cordero,[address] [facility], [place], [address], [place] [facility] 5 10:48:29 Problem Notes None recorded. Procedures Surgical History Date Name Laterality Status Provider Name and Address Organization Details Recorded Time Arthroscopic Surgery completed Cassandra Looney [place] - [facility] 05/07/2024 10:29:21 Hernia Repair completed Cassandra Looney [place] - [facility] 05/07/2024 10:29:26 Joint Replacement completed CONNIE Coyne - [facility] 05/07/2024 10:29:31 Knee Surgery completed Cassandra Looney MA [facility] 05/07/2024 10:29:36 Imaging Results Imaging Date Name Status LastModified by Organiz ation Details LastModified Time 09/01/2024 XR, hand completed [email or web address] [facility] [address] [facility] [address], [place], [address], 09/02/2024 14:10:49 10/25/2024 PFT, complete completed [facility]rology [address] [facility] [address], [place], [address], 11/26/2024 09:45:26 Procedure Notes None recorded. Medical Equipment None Reported. Allergies No known drug allergies Medications Name Sig Start Date Stop Date Status Note LastModified by Organization Details LastModified Time nystatin 100,000 unit/mL oral suspensio n SWISH AND SWALLOW 5 ML BY MOUTH FOUR TIMES DAILY FOR 14 DAYS 05/07 completed Not Available Not Available Not Available oxybutyni n chloride ER 15 mg tablet,ex tended release 24 hr TAKE 1 TABLET BY MOUTH DAILY 03/18 completed Not Available Not Available Not Available gabapenti n 600 mg tablet TAKE 1 TABLET BY MOUTH THREE TIMES DAILY 2024 active Not Available Not Available Not Avai lable benzonata te 200 mg capsule TAKE 1 CAPSULE BY MOUTH THREE TIMES DAILY 05/07 completed Not Available Not Available Not Available metoprolo l succinate ER 50 mg tablet,ex tended release 24 hr TAKE 1 TABLET BY MOUTH ONCE DAILY active Not Available Not Available No t Available prednison e 20 mg tablet TAKE 2 TABLETS BY MOUTH EVERY DAY FOR 5 DAYS 05/07 completed Not Available Not Available Not Available oxycodone 5 mg/5 mL oral solution 05/07 completed Not Available Not Available Not Available pantopraz ole 20 mg tablet,de layed release TAKE 1 TABLET BY MOUTH TWICE DAILY 2024 active Not Available Not Available Not Avai lable amoxicill in 875 mg tablet TAKE 1 TABLET BY MOUTH TWICE DAILY FOR 10 DAYS 09/08 completed Not Available Not Available Not Available amlodipin e 10 mg tablet TAKE 1 TABLET BY MOUTH EVERY DAY active Not Available Not Available No t Available gabapenti n 300 mg capsule TAKE 1 CAPSULE BY MOUTH THREE TIMES DAILY 2024 active Not Available Not Available Not Avai lable codeine 10 mg-guaife nesin 100 mg/5 mL oral liquid TAKE 10 ML BY MOUTH EVERY 6 TO 8 HOURS NEEDED 05/07 completed Not Available Not Available Not Available mupirocin 2 % topical ointment APPLY OINTMENT EXTERNAL LY TWICE DAILY TO LEFT EAR CANAL LACERATI ON FOR 10 DAYS 05/07 completed Not Available Not Available Not Available methylpre dnisolone 4 mg tablets in a dose pack FOLLOW PACKAGE DIRECTIO NS 05/07 completed Not Available Not Available Not Available albuterol sulfate HFA 90 mcg/actua tion aerosol inhaler INHALE 2 PUFFS INTO THE LUNGS EVERY 4 HOURS NEEDED FOR WHEEZING OR SHORTNES S OF BREATH 05/07 completed Not Available Not Available Not Available SSD 1 % topical cream APPLY TOPICALL Y TO THE AFFECTED AREA TWICE DAILY FOR 10 DAYS 09/08 completed Not Available Not Available Not Available fluticaso ne propionat e 50 mcg/actua tion nasal spray,matilda pension SHAKE LIQUID AND USE 1 SPRAY IN EACH NOSTRIL TWICE DAILY 09/08 completed Not Available Not Available Not Available oxycodone 5 mg tablet TAKE 1 TABLET BY MOUTH EVERY 4 HOURS NEEDED FOR PAIN 05/07 completed Not Available Not Available Not Available Children' s Ibuprofen 100 mg/5 mL oral suspensio n 05/07 completed Not Available Not Available Not Available rosuvasta tin 40 mg tablet TAKE 1 TABLET BY MOUTH NIGHTLY AT BEDTIME active Not Available Not Available No t Available alfuzosin ER 10 mg tablet,ex tended release 24 hr TAKE 1 TABLET BY MOUTH DAILY active Not Available Not Available No t Available tadalafil 5 mg tablet TAKE 1 TABLET BY MOUTH EVERY DAY 05/07 completed Not Available Not Available Not Available tadalafil 20 mg tablet Take 1 tablet by oral route for 10 days. active REFILLD Not Available Not Available No t Available trospium 20 mg tablet TAKE 1 TABLET BY MOUTH TWICE DAILY active Not Available Not Available No t Available duloxetin e 30 mg capsule,d elayed release TAKE 1 CAPSULE BY MOUTH DAILY active Not Available Not Available No t Available fiber active OTC Not Available Not Availa ble Not Available M-PAP 160 mg/5 mL oral liquid TAKE 31ML BY MOUTH EVERY 6 HOURS NEEDED FOR PAIN. 05/07 completed Not Available Not Available Not Available Gemtesa 75 mg tablet 11/05 completed Not Available Not Available Not Available aspirin 81 mg capsule Take 1 capsule every day by oral route. active Not Available Not Available No t Available Tyrvaya 0.03 mg/spray nasal spray [place] 1 spray twice a day by intranas al route. active Not Available Not Available No t Available Vitals Date Recorded Body height Body mass index (BMI) Body weight Respiratory rate Oxygen saturation Oxygen saturation in Arterial blood by Pulse oximetry Heart rate Systolic blood pressure Diastolic blood pressure Provider Name and Address Organization Details Last Updated DateTime 4 187.96 cm 29.8 kg/m2 557395. 87 g 20 /min 96 % 96 % 72 /min 128 mm[Hg] 82 mm[Hg] Cassandra Looney MA [facility] 4 09:36:29 Date Recorded Systolic blood pressure Diastolic blood pressure Provider Name and Address Organization Details Last Updated DateTime 05/07/2024 130 mm[Hg] 80 mm[Hg] ELLIOT Suarez Attn: Accounting,[address] [place], [address], [place] - [facility] 05/07/2024 10:12:25 Date Recorded Body height Body mass index (BMI) Body weight Respiratory rate Oxygen saturation Oxygen saturation in Arterial blood by Pulse oximetry Heart rate Systolic blood pressure Diastolic blood pressure Systolic blood pressure Diastolic blood pressure Provider Name and Address Organization Details Last Updated DateTime 4 187.96 cm 27.2 kg/m2 72271.5 8 g 20 /min 96 % 96 % 72 /min 142 mm[Hg] 82 mm[Hg] 126 mm[Hg] 72 mm[Hg] Cassandra Looney MA [facility] 4 10:17:30 Date Recorded Systolic blood pressure Diastolic blood pressure Provider Name and Address Organization Details Last Updated DateTime 09/08/2024 120 mm[Hg] 80 mm[Hg] ELLIOT Suarez Attn: Accounting,[address] [place], [address] 09/08/2024 10:44:23 Date Recorded Body height Body mass index (BMI) Body weight Heart rate Oxygen saturation Oxygen saturation in Arterial blood by Pulse oximetry Systolic blood pressure Diastolic blood pressure Provider Name and Address Organization Details Last Updated DateTime 187.96 cm 26.6 kg/m2 32357.4 2 g 61 /min 95 % 95 % 108 mm[Hg] 62 mm[Hg] Angelic Raya MA [facility] 10:08:45 Date Recorded Respiratory rate Systolic blood pressure Diastolic blood pressure Provider Name and Address Organization Details Last Updated DateTime 11/05/2024 18 /min 120 mm[Hg] 80 mm[Hg] ELLIOT Suarez Attn: Accounting, [address] [place], [address], [facility] 11/05/2024 10:36:36 Date Recorded Body height Body mass index (BMI) Body weight Oxygen saturation Oxygen saturation in Arterial blood by Pulse oximetry Heart rate Respiratory rate Systolic blood pressure Diastolic blood pressure Provider Name and Address Organization Details Last Updated DateTime 187.96 cm 27.1 kg/m2 04235.9 9 g 97 % 97 % 82 /min 20 /min 118 mm[Hg] 72 mm[Hg] Cassandra Looney MA [facility] 5 10:33:45 Date Recorded Systolic blood pressure Diastolic blood pressure Provider Name and Address Organization Details Last Updated DateTime 03/18/2025 134 mm[Hg] 70 mm[Hg] ELLIOT Suarez Attn: Accounting,[address] [place], [address] 03/18/2025 10:59:36 Social History Question Answer Notes LastModified by Organizat ion Details LastModified Time Tobacco Smoking Status Never Smoker Cassandra Looney MA null, [facility] 05/07/2024 09:34:16 Do You Have An [...] No Information not available 05/06/2024 Are You Currently Employed? No Information not available 03/18/2025 Are You Deaf Or Do You Have Serious Difficulty Hearing? No Hearing Aids Information not available 05/07/2024 What Type Of Diet Are You Following? REGULAR Information not available 05/07/2024 Are There Any Guns Present In Your Home? No Information not available 05/07/2024 What Was The Date Of Your Most Recent Tobacco Screening? 03/18/2025 Information not available 03/18/2025 What Is Your Relationship Status? Information not available 03/18/2025 Do You Use Your Seat Belt Or Car Seat Routinely? Yes Information not available 05/06/2024 Do You Have Smoke And Carbon Monoxide Detectors In Your Home? Yes Information not available 05/06/2024 Do You Feel Stressed (tense, Restless, Nervous, Or Anxious, Or Unable To Sleep At Night)? [id number] Information not available 09/08/2024 Do You Use Any Illicit Or Recreational Drugs? No Information not available 05/07/2024 Do You Use Sunscreen Routinely? No Information not available 09/08/2024 Has Tobacco Cessation Counseling Been Provided? No [email or web address] Information not available 11/05/2024 On What Date Was Tobacco Cessation Counseling Provided? 03/18/2025 Information not available 03/18/2025 Do You Or Have You Ever Used [...] Atrial Fibrillation N High Blood Pressure Y Depression N COPD N Blood Clots Y Anxiety Disorder N Muscle, Joint, or Bone Problems N Acid Reflux (GERD) Y Cancer Y Stroke N High Cholesterol Y Liver Disease N Headaches N Kidney or Bladder Problems N Thyroid Problems N GI Problems N Skin Problems N Anemia N Heart Attack (LA) N Diabetes N Seizures/Epilepsy N Asthma N Allergies N Hepatitis N Heart Failure N Osteoporosis N Immunizations Vaccine Type Date Status Note Provider Nam e and Address Organization Details Recorded Time Influenza, MDCK, quadrivalent, PF 12/02/2017 completed CONN[place] [facility] 09/07/2024 17:05:54 zoster recombinant 12/03/2021 completed Cassandra [place] [facility] 09/07/2024 17:05:54 Influenza, high-dose, quadrivalent, PF 12/31/2023 sharonda [place] [facility] 09/07/2024 17:05:54 Influenza, high-dose, quadrivalent, PF 11/17/2021 CONNIE [place]endejas[place] [facility] 09/07/2024 17:05:54 Influenza, adjuvanted, quadrivalent, PF 09/03/2020 [place] CONNIE [place] [facility] 09/07/2024 17:05:54 COVID-19, mRNA, LNP-S, PF, 100 mcg/0.5mL dose or 50 mcg/0.25mL dose 01/12/2021 [place] CON[place]IE [place] [facility] 09/07/2024 17:05:54 COVID-19, mRNA, LNP-S, PF, 100 mcg/0.5mL dose or 50 mcg/0.25mL dose 02/09/2021 [place] CON[place]IE [place] [facility] 09/07/2024 17:05:54 COVID-19, mRNA, LNP-S, PF, 100 mcg/0.5mL dose or 50 mcg/0.25mL dose 11/17/2021 [place] [facility] 09/07/2024 17:05:54 Influenza, split virus, trivalent, PF 10/26/2015 [place] [facility] 09/07/2024 17:05:54 Past Encounters Encounter ID Performer Location Encounter Start Date Encounter Closed Date Diagnosis/Indication Diagnosis SNOMED-CT Code Diagnosis ICD10 Code Diagnosis Note [id number] ELLIOT Suarez [facility] [place] [address] [place] [address] 05/07/2024 09:21:11 05/07/2024 10:16:56 Benign essential hypertension 8930773 I10 stable on amlodipine 10mg daily Hyperlipidemia 25915806 E78.5 lipid panel ordered through cardiologi st. on rosuvastat in 40mg daily. Gastroesop hageal reflux disease without esophagitis 757111685 K21.9 stable on pantoprazo le 20mg bid. 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 it helps but not enough. Mixed anxi ety and depressive disorder 450198695 F41.8 stable on duloxetine 30mg daily. History of cancer metastatic to lung 8784332452 311458 Z85.118 hx noted from renal cell mets Long-term drug therapy 381077238 Z79.899 all routine labs are due Obstructiv e sleep apnea syndrome 78573776 G47.33 stable on cpap therapy. Chronic low back pain 27 9080446 M54.50 no acute changes. has pain management . Chronic neck pain 712153 5444 107 M54.2 no acute changes. sees pain management . Body mass index 25-29 - overweight 324319630 Z68.29 Blood gluc ose outside reference range 746049787 R73.09 following a1c with slight elevation in a1c in hx. History of malignant neoplasm of kidney 371985025 Z85.528 hx noted [id number] ELLIOT Suarez [facility] [address] [place] [address] 09/08/2024 09:59:33 09/08/2024 12:49:39 Body mass index 25-29 - overweight 882746566 Z68.29 BMI has dropped to 27.2 with terrific weight loss and dietary changes Overweight 881594133 E66 .3 Keep up the great efforts with lifestyle modificati ons Long-term drug therapy 636152505 Z79.899 Repeat CBC BMP and liver panel in March. Type 2 jo ann betes mellitus without complication 190867481 E11.9 6.6% A1c on recent labs. Patient has achieved improvemen t in his A1c just by dietary modificati ons lower carbohydra te and low sugars. He can continue this treatment route and repeat labs in March. Blood gluc ose outside reference range 400029885 R73.09 following a1c with slight elevation in a1c in hx. [id number] ELLIOT Suarez [facility] [address] [place] [address] 11/05/2024 09:55:10 11/05/2024 10:55:14 Body mass index 25-29 - overweight 665354850 Z68.26 bmi 26.6 Benign ess ential hypertension 1460995 I10 stable on amlodipine 10mg daily Hyperlipidemia 79547588 E78.5 lipid panel ordered through cardiologi st. on rosuvastat in 40mg daily. Gastroesop hageal reflux disease without esophagitis 066636821 K21.9 stable on pantoprazo le 20mg bid. 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 it helps but not enough. Mixed anxi ety and depressive disorder 264417561 F41.8 stable on duloxetine 30mg daily. Obstructiv e sleep apnea syndrome 99650924 G47.33 hasn't been using cpap since december. he can't fight the mask any longer. wants [facility] but going through extensive process to see if he is candidate. may have laryngocel e and he will see specialist for that soon. History of malignant neoplasm of kidney 982315944 Z85.528 hx noted History of cancer metastatic to lung 2022163100 992558 Z85.118 hx noted from renal cell mets Chronic low back pain 27 3812087 M54.50 no acute changes. Chronic neck pain 430618 4733 107 M54.2 no acute changes. Long-term drug therapy 584284065 Z79.899 All labs are up-to-date Increased frequency of urination [id number] R35.0 We will refer to urology for [...] Name 05/07/2024 1 [place] Will Woodward [id number] [facility] 05/07/2024 2 [employer]ARP HE[employer]CARE OPTIONS (MEDICARE SUPPLEMENT) Will Woodward [id number] [facility] 09/08/2024 1 [place] Will Woodward [id number] Will 09/08/2024 2 [employer] HE[employer]CARE OPTIONS (MEDICARE SUPPLEMENT) Will Woodward [id number] Will 11/05/2024 2 [employer] HE[employer]CARE OPTIONS (MEDICARE SUPPLEMENT) Will Woodward [id number] [place] 11/05/2024 [place] [facility] Will Woodward [id number] Will Woodward Notes Date Note Type Note [...] sleep study. Dr. Sylvia Judd ENT at [facility] NeuropathyReported bypatient.Notes:pt does take gabapentin and [...] stable with recent CT scans. 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 Rao to follow with at [facility]- aug 2024 appt. left hemidiaphragm paralysis- seeing dr. Isaiah Holden at [facility] pulmonary-- ordering another PFT Nov.01. this may be contributing to worsening hypoventilation issues indefinitely. ELLIOT Suarez Attn: Accounting, [facility], [place], [address], [facility] 05/30/2024 17:05:23 09/08/2024 text/html Patient is here to follow up primarily on his diabetes new diagnosis. He has made significant changes in lowering carbohydrates and sugar in his diet to treat his early diabetes. He has lost quite a bit of weight and is feeling terrific overall. He is here to review labs specifically related to his diabetes. ELLIOT Suarez Attn: Accounting, [address], [place], [address], [facility] 10/01/2024 13:37:42 11/05/2024 [...] sleep study. Dr. Sylvia Judd ENT at [facility] NeuropathyReported bypatient.Notes:pt does take gabapentin and [...] stable with recent CT scans. 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 Rao to follow with at [facility]- pt is pleased with him. left hemidiaphragm paralysis- seeing dr. Isaiah Holden at [facility] pulmonary-- PFT Nov.01. ELLIOT Suarez Attn: Accounting,[address], [place], [address], [facility] 11/26/2024 09:47:35
--- OUTSIDE RECORDS SUMMARY | 2025-03-18 10:30 | XMS_ITS | Clinical Summary ---
Author Organization [facility] Address [address] [place] [address] Care Team Providers Care Animal Trainer Name Role Phone [facility] Pr ovider Source Comments [facility],non-owned Affiliates and Associated Physician Practices is amultiple site organization consisting of ambulatory clinics and hospital sitesin [place], [place], [place] and [place]. This disclosure is being madepursuant to the Care Everywhere program and may not contain all information available regarding this patient. Last updated 18.[facility] [employer] Social History Tobacco Use Types Packs/Day Years [...] age to complete this topic Insurance MEDICARE [facility] Care Teams Animal Trainer Relationship Specialty Start Date End Date Park Neff [place] [address] [place] [address] PCP - General 11/20/22
--- OUTSIDE RECORDS SUMMARY | 2025-03-18 10:31 | XMS_ITS | Data Portability ---
Author Organization [place] [facility], Main Office Address [address] [place] [address] Assessment No assessment recorded. Plan of Treatment Reminders Order Date Submit Date Provider Last Modified By Organization Details Last Modified Time Details Appointments None recorded. Lab HbA1c (hemoglobi n A1c), blood 2022 023 [email or web address] [facility], [address], [place], [address], 4 08:52:06 CBC w/ auto diff 2022 023 [email or web address] [facility], [address], [place], [address], 4 08:52:06 hepatic function panel, serum 2022 023 [email or web address] [facility], [address], [place], [address], 4 08:52:07 BMP, serum or plasma 2022 023 [email or web address] [facility], [address], [place], [address], 4 08:52:07 lipid panel, serum 2022 023 [email or web address] [facility], [address], [place], [address], 4 08:52:06 Referral ENT surgery referral 2022 023 [email or web address] 4 [place], [address], [address], [place], [address], 4 16:39:39 urologist referral 2022 023 [email or web address] 4 [facility], [address], [place], [address], 4 16:39:37 plastic surgeon referral 2022 023 [...] (PROC ) No observ ation record ed. [id number] Orlin Pearson MD [address] [facility] [address], [place], [address], 01/29/2023 13:32:01 01/08/20 23 12/05/2022 event monit or No observ ation record ed. [id number] [facility] Cardiovascula r Department [address] [facility] , [place], [address], 01/29/2023 13:32:01 10/29/20 23 08/08/2023 PFT, compl ete No observ ation record ed. [email or web address] Not Available 10/30 14:41:25 Result Notes None recorded. Problems Name Problem SNOMED Code Status Onset Date Resolution Date Notes Provider Name and Address Organization Details Recorded Time Renal angle tenderness 125729828 Active Not Available [facility] 3 13:30:25 Benign hypertensi on 52899895 Active Not Available [facility] 3 13:30:26 Benign essential hypertensi on 8881536 Active 2022 Not Available [facility] 3 13:30:26 Serum creatinine above reference range 237774990 Active Not Available [facility] 3 13:30:26 Painless hematuria 956432132 Active Not Available [facility] 3 13:30:26 Gastroesop hageal reflux disease 170225045 Active Not Available [facility] 3 13:30:26 Lumbosacra l radiculopa thy 7913864 Active Not Available [facility] 3 13:30:26 Rectal mass 407714136 Active 2021 Not Available [facility] 3 13:30:26 Degenerati on of lumbar interverte bral disc 04255084 Active Not Available [facility] 3 13:30:26 Dyspnea 093577273 Active 2022 Not Available [facility] 3 13:30:26 Syncope 334581465 Active 2022 Not Available [facility] 3 13:30:26 Peripheral neuropathi c pain 973634825 Active Not Available [facility] 3 13:30:26 Renal mass 901936551 Active Not Available [facility] 3 13:30:26 Blood in urine 07101911 Active Not Available [facility] 3 13:30:26 Strain of neck muscle 022446601 Active 2021 Not Available [facility] 3 13:30:27 History of male erectile disorder 587705962 Active 2016 Not Available [facility] 3 13:30:27 Well controlled type 2 diabetes mellitus 911197941 Active 2021 Not Available [facility] 3 13:30:27 Raised seborrheic keratosis 2635720897371 00 Active 2021 Not Available [facility] 3 13:30:27 Coronary arterioscl erosis 73560542 Active Not Available [facility] 3 13:30:27 Hyperlipid emia 48499140 Active Not Available [facility] 3 13:30:27 Carpal tunnel syndrome 92446203 Active Not Available [facility] 3 13:30:27 Degenerati on of cervical interverte bral disc 79805548 Active Not Available [facility] 3 13:30:27 Varicose veins of lower extremity 71704839 Active Not Available [facility] 3 13:30:27 Obstructiv e sleep apnea syndrome 31155664 Active 2020 Not Available [facility] 3 13:30:28 Neck pain 25663656 Active Not Available [facility] 3 13:30:28 COVID-19 021953574 Active 2021 Not Available [facility] 3 13:30:28 Edema of lower extremity 431693767 Active 2022 ELLIOT Suarez [address], [address], [place], [address] , [facility] 3 14:43:19 Varicose veins of lower extremity 54786923 Active 2022 ELLIOT Suarez [address], [address], [place], [address] , [facility] 3 14:43:40 Secondary peripheral neuropathy 130685 Active 2022 ELLIOT Suarez [address], [address], [place], [address] , [facility] 3 14:43:44 Metastatic renal cell carcinoma 769656440 Active 2022 ELLIOT Suarez [address], [address], [place], [address] , [facility] 3 20:23:19 Cervical radiculopa thy 36481396 Active 2022 ELLIOT Suarez [address] [address], [place], [address] , [facility] 3 12:25:26 Large prostate 162191593 Active 2022 ELLIOT Suarez [address], [employer], [place], [address] , [facility] 3 12:30:11 Change in skin lesion 739195929 Active 2022 ELLIOT Suarez [address] [employer], [place], [address] , [facility] 3 12:33:50 Upper respirator y infection 49723532 Active 2022 ELLIOT Suarez [address], [employer], [place], [address] , [facility] 3 16:26:06 Cough 07546893 Active 2022 ELLIOT Suarez [address], [employer], [place], [address] , [facility] 3 16:26:14 Persistent cough 774917814 Active 2022 ELLIOT Suarez [address], [place], [address] , [facility] 3 11:51:23 Benign prostatic hyperplasi a 382468522 Active 2022 ELLIOT Suarez [address] [employer], [place], [address] , [facility] 3 10:00:16 Notes:COVID pos 12/18/22 Problem Notes None recorded. Procedures Surgical History Date Name Laterality Status Provider Name and Address Organization Details Recorded Time 10/10/20 17 colonoscopy completed Not Available [facility] 01/29/2023 13:29:49 02/06/20 13 Colonoscopy completed [...] 12/05/2022 event monitor completed [id number] [facility] Cardiovascular Department [address] [place], [address], 01/29/2023 13:32:01 11/08/2022 colonoscopy screening (PROC) completed [id number] Orlin Pearson MD [address] [facility] [address], [place], [address], 01/29/2023 13:32:01 08/08/2023 PFT, complete completed Information not available 10/30/2023 14:41:25 Procedure Notes None recorded. Medical Equipment None Reported. Allergies Allergen ID Allergen Name Allergen Category Reaction Reaction Severity Criticality Documentation Date Start Date Code Code System Note Provider Name and Address Organization Details Recorded Time 98825 Ceftin medicatio n other Not available Not available 01/29/2023 86890 6 RxNorm CDIFF Not Available [facility] [...] Not Available Not Available Not Available Fluvirin 6032-0432 45 mcg (15 mcg x 3)/0.5 mL intramusc ular suspensio n 05/17 completed Not Available Not Available Not Available Lotemax SM 0.38 % eye gel drops INSTILL A SMALL AMOUNT INTO EACH EYE THREE TIMES DAILY 05/17 completed Not Available Not Available Not Available ID NOW COVID-19 Test Kit TEST DIRECTED TODAY [id number] 82 05/16 completed Not Available Not Available Not Available Fluad Quad 8633-3645 (65yr up)(PF) 60 mcg (15 mcg x [...] % 66 /min 16 /min 97.3 [degF] 698365. 21 g 140 mm[Hg] 82 mm[Hg] Not Available [facility] 3 13:30:15 Date Recorded Body mass index (BMI) Body height Oxygen saturation Oxygen saturation in Arterial blood by Pulse oximetry Heart rate Body temperature Body weight Systolic blood pressure Diastolic blood pressure Provider Name and Address Organization Details Last Updated DateTime 3 31.2 kg/m2 183.52 cm 96 % 96 % 68 /min 97.5 [degF] 279431. 43 g 112 mm[Hg] 68 mm[Hg] Not Available [facility] 3 13:30:15 Date Recorded Body height Body temperature Body mass index (BMI) Body weight Heart rate Oxygen saturation Oxygen saturation in Arterial blood by Pulse oximetry Systolic blood pressure Diastolic blood pressure Provider Name and Address Organization Details Last Updated DateTime 3 183.52 cm 98 [degF] 30.2 kg/m2 356804. 69 g 72 /min 96 % 96 % 124 mm[Hg] 74 mm[Hg] Tali Smith RN [facility] 3 14:15:01 Date Recorded Body height Body temperature Body mass index (BMI) Body weight Respiratory rate Oxygen saturation Oxygen saturation in Arterial blood by Pulse oximetry Heart rate Systolic blood pressure Diastolic blood pressure Provider Name and Address Organization Details Last Updated DateTime 3 183.52 cm 98 [degF] 32.1 kg/m2 575148. 98 g 16 /min 97 % 97 % 74 /min 140 mm[Hg] 80 mm[Hg] LETICIA Riddle [facility] 3 11:53:27 Date Recorded Body height Body temperature Body mass index (BMI) Body weight Respiratory rate Oxygen saturation Oxygen saturation in Arterial blood by Pulse oximetry Heart rate Systolic blood pressure Diastolic blood pressure Provider Name and Address Organization Details Last Updated DateTime 3 183.52 cm 98 [degF] 31.6 kg/m2 021382. 21 g 16 /min 95 % 95 % 72 /min 122 mm[Hg] 72 mm[Hg] LETICIA Riddle [facility] 3 11:56:25 Social History Question Answer Notes LastModified by Organizat ion Details LastModified Time Tobacco Smoking Status Never Smoker Not Available [facility] 01/29/2023 13:29:47 What Is Your Level Of Alcohol Consumption? Moderate Beer- Weekly MIGRATION.90240 78804 Information not available 01/29/2023 What Is Your Level Of Caffeine Consumption? None MIGRATION.13804 65300 Information not available 01/29/2023 How Much Tobacco Do You Chew? None MIGRATION.06518 45476 Information not available 01/29/2023 In The 14 Days Before Symptom Onset, Have You Had Close Contact With A Laboratory-confir med COVID-19 While That Case Was Ill? No MIGRATION.45033 12525 Information not available 01/29/2023 In The 14 Days Before Symptom Onset, Have You Had Close Contact With A Person Who Is Under Investigation For COVID-19 While That Person Was Ill? No MIGRATION.11439 48455 Information not available 01/29/2023 Are You Currently Employed? Yes [email or web address] Information not available 03/19/2023 What Type Of Diet Are You Following? REGULAR MIGRATION.11109 05328 Information not available 01/29/2023 Which Illicit Or Recreational Drugs Have You Used? None MIGRATION.63156 81711 Information not available 01/29/2023 Do You Or Have You Ever Used E-cigarettes Or Vape? Never Used Electronic Cigarettes MIGRATION.40447 24703 Information not available 01/29/2023 What Is Your Occupation? [employer] MIGRATION.21577 20371 Information not available 01/29/2023 Have There Been Any Changes To Your Family Or Social Situation? No MIGRATION.73888 54561 Information not available 01/29/2023 Do You Use Insect Repellent Routinely? No MIGRATION.25745 02208 Information not available 01/29/2023 What Is Your Relationship Status? MIGRATION.18342 97486 Information not available 01/29/2023 Do You Use Your Seat Belt Or Car Seat Routinely? Yes MIGRATION.84136 82509 Information not available 01/29/2023 Do You Have Smoke And Carbon Monoxide Detectors In Your Home? Yes MIGRATION.34982 74265 Information not available 01/29/2023 Do You Or Have You Ever Used Smokeless Tobacco? Never Used Smokeless Tobacco MIGRATION.87224 70924 Information not available 01/29/2023 How Much Tobacco Do You Smoke? No MIGRATION.73452 53154 Information not available 01/29/2023 Do You Use Any Illicit Or Recreational Drugs? No MIGRATION.55354 12639 Information not available 01/29/2023 Do You Use Sunscreen Routinely? Yes MIGRATION.55173 97381 Information not available 01/29/2023 Have You Recently Traveled Abroad? No MIGRATION.11680 70557 Information not available 01/29/2023 Do You Have Any Dietary Restrictions? No MIGRATION.06180 57139 Information not available 01/29/2023 Do You Or Have You Ever Used Any Other Forms Of Tobacco Or Nicotine? No MIGRATION.62233 24514 Information not available 01/29/2023 Sex: Unknown Functional Status Question Answer Note LastModified by Organizat ion Details LastModified Time Are you able to care for yourself? Yes MIGRATION.25212575 26 Information not available 01/29/2023 What is your exercise level? Moderate Walking MIGRATION.51662018 26 Information not available 01/29/2023 Mental Status None recorded. Family History Relationship Description Onset Age of this Age Resolved Age Notes LastModified by Organization Details LastModified Time Father Malignant tumor of colon 80 MIGRATION.340 [id number] Not available 01/29/2023 13:29:50 Mother Malignant tumor of colon 84 MIGRATION.237 3080544 Not available 01/29/2023 13:29:50 Brother History of heart disorder MIGRATION.441 4455037 Not available 01/29/2023 13:29:50 Medical History Condition [...] SNOMED-CT Code Diagnosis ICD10 Code Diagnosis Note [id number] [facility] [address] [place] [address] 05/18/2021 00:00:00 05/29/2021 23:24:43 [id number] [facility] [address] [place] [address] 08/01/2021 00:00:00 08/07/2021 14:21:22 [id number] [facility] [address] [place] [address] 11/16/2021 00:00:00 11/29/2021 18:58:23 [id number] [facility] [address] [place] [address] 05/17/2022 00:00:00 05/30/2022 11:38:41 [id number] [facility] [address] [place] [address] 08/02/2022 00:00:00 08/02/2022 09:58:45 [id number] [facility] [address] [place] [address] 11/15/2022 00:00:00 11/27/2022 18:22:34 [id number] [facility] [address] [place] [address] 12/11/2022 00:00:00 12/30/2022 22:49:20 [id number] ELLIOT Suarez [facility] [address] [place] [address] 03/20/2023 13:55:27 03/20/2023 14:45:14 Edema of lower extremity 281054900 R60.0 Pt is decreasing sodium significan tly in diet to help. Also elevating legs often and wearing compressio n stockings. Varicose v eins of lower extremity 21919025 I83.893 as above. Secondary peripheral neuropathy 053206 G62.89 patient is really having neuropathy pain [...] Pulmonolog ist until May this year. Dyspnea 352175775 R06.00 pt has dyspnea at rest and increased with exertion/w alking/str aining, this is felt to be related to his left suzy-diaph ragm elevation noted on previous testing in the hospital. Pulmonary appt is in May. Metastatic renal cell carcinoma 171767805 C79.00 hx of renal cell cancer, resected but with metastasis to the lung that is currently been stable for some years with antineopla stic agents, which did lead to his severe peripheral neuropathy . [id number] ELLIOT Suarez [facility] [address] [place] [address] 04/03/2023 11:47:45 04/03/2023 12:24:58 Edema of lower extremity 856348019 R60.0 Pt is decreasing sodium significan tly in diet to help. Also elevating legs often and wearing compressio n stockings. Secondary peripheral neuropathy 774279 G62.89 patient is really having neuropathy pain [...] year. Varicose v eins of lower extremity 63790935 I83.893 as above. Dyspnea 846097123 R06.00 pt has dyspnea at rest and increased with exertion/w alking/str aining, this is felt to be related to his left suzy-diaph ragm elevation noted on previous testing in the hospital. Pulmonary appt is in May. Metastatic renal cell carcinoma 702195661 C79.00 hx of renal cell cancer, resected but with metastasis to the lung that is currently been stable for some years with antineopla stic agents, which did lead to his severe peripheral neuropathy . Cervical radiculopathy 71211303 M54.12 hx noted and pt remains symptomati c with neck pain radiating into the UEs [id number] ELLIOT Suarez [facility] [address] [place] [address] 07/17/2023 11:48:54 07/17/2023 12:47:22 Peripheral neuropathic pain 043219951 M79.2 pt takes duloxetine and also care home gabapentin 900mg tid. Though he does still have neuropathy symptoms, the gabapentin does help keep symptoms less severe. He does want to continue medication s. Well contr olled type 2 diabetes mellitus 995793298 E11.9 stable. due for a1c in aug. dietary managed. History of male erectile disorder 725359256 Z87.438 stable. no acute changes. Coronary arteriosclerosis 49921304 I25.[address] no Chest pain or [place] at this time. Benign ess ential hypertension 9282174 I10 stable on medication s. Hyperlipidemia 91916307 E78.5 stable on statin therapy. UTD withe new cardiologi st he has chosen Obstructiv e sleep apnea syndrome 45727829 G47.33 refer to ENT for consult in [employer] Gastroesop hageal reflux disease 131195802 K21.00 stable on PPI therapy Large prostate 796375485 N40.0 refer to Urologist for evaluation and management . Change in skin lesion 39 0168438 L98.9 refer for left groin skin lesion growing in size. has been present for years. pt is known to dr. veloz, he would like to see him for this. Long-term drug therapy 475741865 Z79.899 Health Concerns Section Related Observation LastModified by Organization Detai ls LastModified Time None Recorded Concern Status LastModified by Organization Details LastModified Time None Recorded Advance Directives Directive None Recorded Payers Encounter Date Sequence Insurance Name Policy Number Policy Cheung Covered Member ID Cheung Member ID Guarantor Name 03/20/2023 1 [id number] 2 Will Woodward [id number] Will Woodward 04/03/2023 1 [place] [id number] 2 Will Woodward [id number] Will Woodward 07/17/2023 1 [place] Will Woodward [id number] Will Woodward 07/17/2023 2 [facility] OPTIONS (MEDICARE SUPPLEMENT) PLAN G Will Woodward [id number] Will Woodward Notes Date Note Type Note [...] early satiety; no halitosis;chest pain Not Available [facility] 11/27/2022 18:22:34 3 text/html Generic HPI TemplateReported bypatient.Notes:pt is here for hosp f/uadmitted for syncopal episode, abdominal pain, nausea episode.dx- unknownrecords in room- reviewed. complete , extensive w/u completed with inpatient stay. no answers yet beyond possible vasovagal syncope. color television console monitor in place Not Available [facility] 12/30/2022 22:49:20 3 text/html Pt states for the past couple weeks both of his feet have been hurting and by the evening his feet are swollen. Pain is described as sharp and burning. Rated 8/10. Says its so bad sometimes he cant get out of his chair, walking is difficult. His GI dr recommended him seeing a neurologist at [facility] in [facility]. Lower part of his calf gets a little red but no warmth. 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 ELLIOT Suarez [address] [facility] [address], [place], [address], [facility] 03/27/2023 20:24:27 3 text/html Generic HPI TemplateReported bypatient.Location:[facility] feet Quality:swelling Severity:improving but worse at night Associated Symptoms:feet still hurtNotes:Pt is here to f/u on the swelling. ELLIOT Suarez [address] [facility] [address], [place], [address], [facility] 04/30/2023 00:42:27 3 text/html HyperlipidemiaReported bypatient.Duration:chronic Control:usually [...] no fatigue; no throat pain ELLIOT Suarez [address] [place] [address], [address] [place], [address], [place] [facility] 07/31/2023 15:45:32
--- OUTSIDE RECORDS SUMMARY | 2025-03-18 10:31 | XMS_ITS | Clinical Summary ---
Author Organization [facility] Address [facility] [place] [address] Care Team Providers Care Radiological Technologist Name Role Phone Park Cunha Primary Care Provider [phone] Allergies Active Allergy Reactions Criticality Noted Date [...] 24 hr tabletIndicat ions:Coronary artery disease involving [place] coronary artery of [place] heart without angina pectoris TAKE 1 TABLET(50 MG) BY MOUTH DAILY 90 tablet 01/11/20 25 Active rosuvastatin (CRESTOR) 40 MG tabletIndicat ions:Coronary artery disease involving [place] coronary artery of [place] heart without angina pectoris,Hype rlipidemia, mixed TAKE [...] (03/07/2023): Added automatically from request for surgery [id number] Renal cell carcinoma ([facility]) 3 Coronary arteriosclerosis 01/23/2023 Paroxysmal ventricular tachycardia ([facility]) 01/17/2023 Overview (01/23/2023): Last Assessment & [...] Type II diabetes mellitus, w ell controlled ([facility]) 05/17/2022 Essential hypertension, benign 04/19/2022 Overview [...] (01/23/2023): Added automatically from request for surgery [id number] Dysphagia 07/14/2020 Overview (01/23/2023): Added automatically from request for surgery [id number] Bilateral lower extremity edema 11/05/2019 Venous insufficiency 10/01/2019 Overview (01/23/2023): Added automatically from request for surgery [id number] Precordial chest pain 03/12/2019 Polyneuropathy in diseases classified elsewhere ([facility]) 12/19/2017 Disorder of cardiac function 05/14/2017 Cardiomyopathy ([facility]) 05/02/2017 Overview (01/23/2023): At [facility] his echo showed a visually estimated ejection [...] 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 Not on file Not on fi le Last Filed Vital Signs Vital Sign Reading Time Taken Comments Blood Pressure 122/72 11/15/2024 5:00 PM TRANSITIONAL CARE NURSE Pulse 79 11/15/2024 5:00 PM TRANSITIONAL CARE NURSE Temperature 36.6 C (97.8 F) 11/15/2024 5:00 PM TRANSITIONAL CARE NURSE Respiratory Rate 18 11/15/2024 5:00 PM TRANSITIONAL CARE NURSE Oxygen Saturation 95% 11/15/2024 5:00 PM TRANSITIONAL CARE NURSE Inhaled Oxygen Concentration - - Weight 90.7 kg (200 lb) 11/15/2024 5:00 PM TRANSITIONAL CARE NURSE Height 188 cm (6' 2 ) 11/15/2024 5:00 PM TRANSITIONAL CARE NURSE Body Mass Index 25.68 11/15/2024 5:00 PM TRANSITIONAL CARE NURSE Plan of Treatment Upcoming Encounters Date Type Department Care Team (Late st Contact Info) Description 03/22/2025 10:15 AM CDT Office Visit [facility] [place] [address] Nayan Rao MD [facility] [place] [address] 11/02/2025 9:20 AM TRANSITIONAL CARE NURSE Office Visit [facility] Multispecialty Care - [facility] [address] [facility] [place] [address] Isaiah Jones MD 3rd [facility] [address] [place] [address] Health Maintenance Due Date Last Done Comments Colorectal Cancer Screening Colonoscopy (10 Years) 1955 Kidney Health Evaluation 1955 Diabetes: Retinopathy Eye Exam 1971 Hepatitis C 1971 DTaP, Tdap and Td Vaccines (1 - Tdap) 1972 Pneumococcal Vaccine: 50+ Years (1 of 2 - PCV) 1972 RSV Immunization or 60+ Years (1 - Risk 60-74 years 1-dose series) 2013 Annual Medicare Wellness Visit 2018 Zoster Vaccines (2 of 2) 01/28/2022 12/03/2021 Hemoglobin A1C 09/17/2023 03/18/2023, 11/05/2022, 04/13/2022, Additional history exists COVID-19 Vaccine ( - season) 2024 11/17/2021, 02/09/2021, 01/29/2021, Additional history exists PHQ-2 (Physician [place]) 12/01/2024 Lipid Panel 09/01/2025 09/01/2024, 03/01, 10/26/2022 [...] 91 <200 MG/DL 09/01/2024 10:34 AM CDT [facility] TRIGLYCERIDES 60 <150 MG/DL 09/01/2024 10:34 AM CDT [facility] HDL 43 >40.0 MG/DL 09/01/2024 10:34 AM CDT [facility] LDL (CALCULATED) 36 <100 MG/DL 09/01/20 10:34 AM CDT [facility] NON HDL CHOLESTEROL 48 <130 MG/DL 09/01 10:34 AM CDT [facility] CHOL/HDL RATIO 2.1 0.0 - 4.5 09/01/2024 10:34 AM CDT [facility] VLDL CALCULATION 12 5 - 55 MG/DL 09/01/2024 10:34 AM CDT [facility] LIPID INTERPRETATION 09/01/2024 10:34 AM CDT [facility] Comment: NIH CONCENSUS REPORT RECOMMENDATIONS: ADULT CHILD LOW RISK: CHOLESTEROL <200 <170 TRIGLYCERIDE <150 --- HDL >=60 --- LDL <100 <110 BORDERLINE: CHOLESTEROL 200-239 170-199 TRIGLYCERIDE 150-199 --- HDL 40-59 --- LDL 100-159 110-129 HIGH RISK: CHOLESTEROL >=240 >=200 TRIGLYCERIDE >=200 --- HDL <40 --- LDL >=160 >=130 09/01/2024 9:29 AM CDT Nayan Rao MD LABORATORY Final Resul t Performing Organization Address City/[facility]/ZIP Co de Phone Number [facility] [address] [place] [address], [place] [phone] * (ABNORMAL) HEMOGLOBIN, GLYCOSYLATED (03/18/2023 11:01 AM CDT) HGB A1C 6.9(H) <5.7 % 03/18/2023 11:25 AM CDT [facility] Comment: ADA GUIDELINES 2010 5.7 TO 6.4% INCREASED RISK OF DIABETES > OR = 6.5% CONSISTENT WITH DIABETES ESTIMATED AVG GLUCOSE 151 mg/dL 03/18/2023 11:25 AM CDT [facility] 03/18/2023 11:0 1 AM CDT [place] [facility] Final Result Performing Organization Address City/[facility]/ZIP Co de Phone Number [facility] [address] [place] [address], [place] [phone] * CTA CHEST (07/31/2021 8:07 AM CDT) [...] AM HISTORY: PE suspected, low/intermediate prob, positive [id number] male with right leg cramping, nausea, diaphoresis, [...] Most Recently Relevant to Health Maintenance Insurance [facility] MEDICARE Care Teams Radiological Technologist Relationship Specialty Start Date End Date Park Cunha PA [address] [place] [address] PCP - General PHYSICIAN FUR FINISHER SEAMSTRESS 09/06/21
== END 2025-03-18 10:23 | disposition home or self-care (01) ==
PROVIDERS: PCP Physician Assistant; Visit Provider Physician Assistant
DX: M50.30 Other cervical disc degeneration, unspecified cervical region (principal); M47.896 Other spondylosis, lumbar region
CPT/HCPCS: 71110; 72040; 72100

== ENCOUNTER 2025-09-12 12:24 | Outpatient (CLI) | payer MEDICARE, SELFPAY ==
[2025-09-12 13:10] LABS: Hematocrit 42.8 % (42.0-52.0); Hemoglobin 14.6 g/dL (14.0-18.0); Immature Granulocyte Percent A 0.3 % (0-0.5); Lymphocytes Absolute Auto 1.42 K/mm3 (0.9-3.2); Mean Corpuscular HGB Conc 34.1 g/dl (32-36); Mean Corpuscular Hemoglobin 32.1 pg (26-34); Mean Corpuscular Volume 94.1 fl (80-100); Nucleated Red Blood Cells Absolute Auto 0.000 K/mm3 (0.0-0.012); Nucleated Red Blood Cells Perc 0.0 % (0.0-0.2); Platelet Count Result 185 k/mm3 (150-375); Red Blood Count 4.55 M/mm3 (4.6-6.20); White Blood Count 5.9 K/mm3 (4.5-10.0)
[2025-09-12 13:25] LABS: Alanine Aminotransferase 21 U/L (6-50); Albumin Level 4.5 g/dL (3.5-5.1); Alkaline Phosphatase 99 U/L (38-126); Anion Gap 9 mmol/L (4-12); Aspartate Amino Transferase 32 U/L (17-59); Bilirubin,Total 0.6 mg/dL (0.2-1.3); Blood Urea Nitrogen 26 mg/dL (9-20); Calcium 9.3 mg/dL (8.4-10.2); Carbon Dioxide 28 mmol/L (22-30); Chloride 105 mmol/L (98-107); Estimated Glomerular Filt Rate 47; Glucose 114 mg/dL (65-110); Potassium 4.5 mmol/L (3.4-5.0); Sodium 142 mmol/L (137-145); Total Protein 7.9 g/dL (6.3-8.2)
[2025-09-12 13:27] LABS: Hemoglobin A1C 6.2 % (<5.7)
--- OUTSIDE RECORDS SUMMARY | 2025-09-12 13:30 | XMS_ITS | Clinical Summary ---
Author Organization [facility] Address [facility] [place] [address] Care Team Providers Care Note Teller Name Role Phone Park Cunha Primary Care Provider [phone] Allergies Active Allergy Reactions Criticality Noted Date Comments Cefuroxime Other (see comment) Low 03/12/2019 CDiff per pt Hydromorphone GI Upset Low 02/16/2015 Stomach/GI Upset Medications Acetaminophen 500 MG Cap acetaminophen Activ e Multiple Vitamins-[place] als (MULTIVITAMIN ADULTS 50+) Tab One A Day Vitamin takes daily Active B Complex Vitamins (VITAMIN B COMPLEX OR) Take 1 Dose by mouth daily. Active aspirin EC (ECOTRIN) 81 MG tablet daily. Active DULoxetine 30 MG capsule duloxetine 30 mg capsule,delayed release TAKE 1 CAPSULE BY MOUTH ONCE DAILY IN THE MORNING 1 Active gabapentin (NEURONTIN) 300 MG capsule Take 1 capsule (300 mg total) by mouth 3 (three) times daily. With the 600 mg TID Active pantoprazole EC 20 MG tablet pantoprazole 20 mg tablet,delayed release TAKE 1 TABLET BY MOUTH TWICE DAILY 1 Active tadalafil 5 MG tablet tadalafil 5 mg tablet TAKE 1 TABLET BY MOUTH ONCE DAILY Active melatonin 5 MG tablet Take 1 tablet (5 mg total) by mouth nightly as needed. Active gabapentin (NEURONTIN) 600 MG tablet Take 1 tablet (600 mg total) by mouth 3 (three) times daily. Along with the 300 mg to equal 900 mg TID 3 Active alfuzosin ER (UROXATRAL) 10 MG 24 hr tablet Take 1 tablet (10 mg total) by mouth daily. Active trospium (SANCTURA) 20 MG tablet Take 1 tablet (20 mg total) by mouth 2 (two) times daily. Active metoprolol succinate ER (TOPROL-XL) 50 MG 24 hr tabletIndicati ons:Coronary artery disease involving [place] coronary artery of [place] heart without angina pectoris TAKE 1 TABLET(50 MG) BY MOUTH DAILY 90 tablet 1 5 Active rosuvastatin (CRESTOR) 40 MG tabletIndicati ons:Coronary artery disease involving [place] coronary artery of [place] heart without angina pectoris,Hyper lipidemia, mixed TAKE 1 TABLET(40 MG) BY MOUTH EVERY NIGHT AT BEDTIME 90 tablet 1 5 Active amLODIPine (NORVASC) 10 MG tablet TAKE 1 TABLET BY MOUTH EVERY DAY 90 tablet 1 5 Active Active Problems Problem Noted Date Diagnosed Date Restrictive lung disease 11/03/2023 Diaphragm paralysis 05/08/2023 Abnormal finding on lung imaging 05/08/2023 Diastolic dysfunction 05/08/2023 Edema of lower extremity 03/20/2023 Heartburn 03/07/2023 Overview (03/07/2023): Added automatically from request for surgery [id number] Renal cell carcinoma 01/24/2023 Coronary arteriosclerosis 01/23/2023 Paroxysmal ventricular tachycardia 01/17/2023 Overview (01/23/2023): Last Assessment & Plan: [...] lower extremity 09/02/2022 Type II diabetes mellitus, well controlled 05/17 Essential hypertension, benign 04/19/2022 Overview (01/23/2023): Last [...] (01/23/2023): Added automatically from request for surgery [id number] Dysphagia 07/14/2020 Overview (01/23/2023): Added automatically from request for surgery [id number] Bilateral lower extremity edema 11/05/2019 Venous insufficiency 10/01/2019 Overview (01/23/2023): Added automatically from request for surgery [id number] Precordial chest pain 03/12/2019 Polyneuropathy in diseases classified elsewhere 12/19/2017 Disorder of cardiac function 05/14/2017 Cardiomyopathy 05/02/2017 Overview (01/23/2023): At [facility] his echo showed a visually estimated ejection [...] 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 file Not on fi le Last Filed Vital Signs Vital Sign Reading Time Taken Comments Blood Pressure 106/70 03/22/2025 10:09 AM CDT Pulse 63 03/22/2025 10:09 AM CDT Temperature 36.6 C (97.8 F) 11/15/2024 5:00 PM SPRAY OPERATOR Respiratory Rate 18 11/15/2024 5:00 PM SPRAY OPERATOR Oxygen Saturation 95% 11/15/2024 5:00 PM SPRAY OPERATOR Inhaled Oxygen Concentration - - Weight 97.5 kg (215 lb) 03/22/2025 10:09 AM CDT Height 188 cm (6' 2) 03/22/2025 10:09 AM CDT Body Mass Index 27.6 03/22/2025 10:09 AM CDT Plan of Treatment Upcoming Encounters Date Type Department Care Team (Late st Contact Info) Description 09/27/2025 10:15 AM CDT Office Visit [facility] [address] [facility] [address], [address] [place] [address] Pascale Burgos FNP [address] [facility] [address] [place] [address] 11/02/2025 9:20 AM SPRAY OPERATOR Office Visit [facility] - [facility] [address] [facility] [place] [id number] [facility] [address] [place] [address] Health Maintenance Due Date Last Done Comments [...] 03/18/2023, 11/2 05/2022, 04/13/2022, Additional history exists PHQ-2 (Physician [place]) 12/01/2024 COVID-19 Vaccine ( season) 2025 11/17/2021, 02/09/2021, 01/29/2021, Additional history exists Influenza Adult (#1) 2025 12/31/2023, 09/03/2020, 12/02/2017, Additional history exists ASCVD LDL 09/01/2025 09/01/2024, 03/18/2023 Lipid Panel 09/01/2025 09/01/2024, 03/01, 10/26/2022 AAA SCREENING Completed 04/11/2025, 10/01, 10/15/2024, Additional history exists Meningococcal B Vaccine Aged [...] 91 <200 MG/DL 09/01/2024 10:34 AM CDT [facility] TRIGLYCERIDES 60 <150 MG/DL 09/01/2024 10:34 AM CDT [facility] HDL 43 >40.0 MG/DL 09/01/2024 10:34 AM CDT [facility] LDL (CALCULATED) 36 <100 MG/DL 09/01/20 10:34 AM CDT [facility] NON HDL CHOLESTEROL 48 <130 MG/DL 09/01 10:34 AM CDT [facility] CHOL/HDL RATIO 2.1 0.0 - 4.5 09/01/2024 10:34 AM CDT [facility] VLDL CALCULATION 12 5 - 55 MG/DL 09/01/2024 10:34 AM CDT [facility] LIPID INTERPRETATION 09/01/2024 10:34 AM CDT [facility] Comment: NIH CONCENSUS REPORT RECOMMENDATIONS: ADULT CHILD LOW RISK: CHOLESTEROL <200 <170 TRIGLYCERIDE <150 --- HDL >=60 --- LDL <100 <110 BORDERLINE: CHOLESTEROL 200-239 170-199 TRIGLYCERIDE 150-199 --- HDL 40-59 --- LDL 100-159 110-129 HIGH RISK: CHOLESTEROL >=240 >=200 TRIGLYCERIDE >=200 --- HDL <40 --- LDL >=160 >=130 09/01/2024 9:29 AM CDT Nayan Rao MD LABORATORY Final Resul t Performing Organization Address City[facility] Co de Phone Number [facility] [address] [place] [address], * (ABNORMAL) HEMOGLOBIN, GLYCOSYLATED (03/18/2023 11:01 AM CDT) HGB A1C 6.9(H) <5.7 % 03/18/2023 11:25 AM CDT [facility] Comment: ADA GUIDELINES 2010 5.7 TO 6.4% INCREASED RISK OF DIABETES > OR = 6.5% CONSISTENT WITH DIABETES ESTIMATED AVG GLUCOSE 151 mg/dL 03/18/2023 11:25 AM CDT [facility] 03/18/2023 11:0 1 AM CDT [place] [facility] Final Result Performing Organization Address [facility] Co de Phone Number [facility] [address] [place] [address], * CTA CHEST (07/31/2021 8:07 AM CDT) [...] AM HISTORY: PE suspected, low/intermediate prob, positive [id number] male with right leg cramping, nausea, diaphoresis, [...] Most Recently Relevant to Health Maintenance Insurance [facility] MEDICARE Care Teams Note Teller Relationship Specialty Start Date End Date Park Cunha PA PCP - General PHYSICIAN AUTHORIZATION REPRESENTATIVE 09/06/21
--- OUTSIDE RECORDS SUMMARY | 2025-09-12 13:30 | XMS_ITS | Clinical Summary ---
Author Organization [facility] Address [address] [place] [address] Care Team Providers Care Sport Psychologist Name Role Phone Park Cunha Primary Care Pr ovider Jose Guadalupe Sweeney MD Unavailable [phone] Allergies Active Allergy Reactions Criticality Noted Date [...] Anxiety with Depression, Informant: Self, Reported on 06/24/[address] (PROTONIX) 20 mg EC tabletIndication [...] urinary tract sx, Informant: Self, Reported on 06/24/2025 aspirin 81 mg enteric coated tabletIndication s:prevention [...] 3 (three) times a day 5 Active vitamin b complex (Vitamins B Complex) tablet Take by mouth daily Active sildenafiL (VIAGRA) 100 mg tablet Take 1 tablet (100 mg total) by mouth as needed for erectile dysfunction 10 tablet 11 5 10/22/20 25 Active trospium (SANCTURA) 20 mg tablet Take 1 tablet (20 mg total) by mouth 2 (two) times a day 30 tablet 3 5 Active Active Problems Problem Noted Date Diagnosed Date Benign nodular prostatic hyp erplasia with lower urinary tract symptoms 06/06/2025 Deep vein thrombosis (DVT) 06/06/2025 Overview (06/06/2025): Phreesia 04/25/2024 Erectile dysfunction due to arterial insufficien cy 06/06/2025 Overview (06/06/2025): I discussed options for treatment of his erectile dysfunction including oral agents (PDE5 inhibitors), intraurethral suppository (MUSE), low intensity shock wave therapy (LISWT) intracavernosal injections, vacuum constriction device, as well as penile prosthesis surgery. The risks, benefits, and alternatives of each modality were discussed with the patient. He was given literature to review. Hypogonadism in male 06/06/2025 Overview (06/06/2025): The risks, benefits, and alternatives of Testosterone replacement therapy were discussed with the patient. I discussed risks of Testosterone replacement therapy including prostate enlargement, enhanced growth of prostate cancer, thromboembolic events, and possible link to cardiovascular disease (including stroke and heart attack). I have discussed options with the patient for management of hypogonadism including observation, Testosterone replacement therapy with either gel, patch, injection, oral or pellets. Increased frequency of urination 06/06/2025 Inguinal hernia 06/06/2025 Overview (06/06/2025): Phreesia 04/25/2024 Nocturia 06/06/2025 Overactive bladder 06/06/2025 Urinary urgency 06/06/2025 Velopharyngeal insufficiency, acquired Obstructive sleep apnea 02/13/2024 IDALMIS (obstructive sleep apnea) 09/26/2023 Paroxysmal ventricular tachycardia 01/17/2023 Assessment & Plan (01/17/2023 10:16 AM LEATHER SPONGER): On the event monitor patient had 2 [...] 11/28/2022 Assessment & Plan (01/17/2023 10:17 AM LEATHER SPONGER): No further syncope noted. It appears that [...] 0 08/02/2022 Tinnitus of both ears 08/02/2022 Well controlled type 2 diabetes mellitus 022 Essential hypertension, benign 04/19/2022 Assessment & Plan (01/17/2023 10:17 AM LEATHER SPONGER): Blood pressure is well controlled. Continue low-salt diet which I discussed with him. Continue amlodipine and metoprolol. Mixed hyperlipidemia 10/19/2021 Assessment & Plan (01/17/2023 10:17 AM LEATHER SPONGER): Lipid panel looks good along with LFTs. Continue Crestor and heart healthy diet which I discussed with patient. I will check his Chem 12, magnesium and lipids prior to next appointment. Lumbosacral radiculopathy 09/06/2021 Obstructive sleep apnea syndrome 05/18/2021 Orthostatic dizziness 11/10/2020 Gastroesophageal reflux disease without esophagi tis 07/14/2020 Overview (07/14/2020): Added automatically from request for surgery [id number] Dysphagia 07/14/2020 Overview (07/14/2020): Added automatically from request for surgery [id number] Gastric ulcer 07/14/2020 Overview (07/14/2020): Added automatically from request for surgery [id number] Oropharyngeal dysphagia 07/14/2020 Overview (07/14/2020): Added automatically from request for surgery [id number] GERD (gastroesophageal reflux disease) 0 Bilateral lower extremity edema 11/05/2019 Venous insufficiency 10/01/2019 Overview (10/01/2019): Added automatically from request for surgery [id number] Precordial chest pain 03/12/2019 Metastatic carcinoma to lung, left 07/28/2018 Malignant (primary) neoplasm, unspecified 2017 Polyneuropathy in diseases classified elsewhere 12/19/2017 Erectile disorder due to medical condition in ma le 07/18/2017 Disorder of cardiac function 05/14/2017 Cardiomyopathy 05/02/2017 Overview (09/02/2022): [facility] his echo showed a visually estimated ejection [...] 07/10/2016 Assessment & Plan (01/17/2023 10:18 AM LEATHER SPONGER): No clinical angina noted. Continue aspirin. Encouraged him to continue his walking. Advised him to contact me if he has any symptoms. History of hypertension 07/10/2016 Syncope 07/10/2016 Renal mass 05/23/2016 Resolved Problems Problem Noted Date Diagnosed Date Resolved Date Dyslipidemia 03/12/2019 10/19/2021 Essential hypertension 03/12/201904/19 Encounters Date Type Department Care Team Description 08/03/2025 3:30 PM CDT Procedure visit [facility] Otol[facility]ology [address] [place], [place] [address], [place] [address] Salma Looney Fitting and adjustment of hearing aid (Primary Dx) 07/01/2025 Orders Only [facility] Orthopaedic Surgery [address] [facility] [address] [place] [phone] Jerry Cristobal MD Lumbosacral radiculopathy (Primary Dx); Spinal stenosis of lumbar region, unspecified whether neurogenic claudication present 06/30/2025 Telephone [facility] Orthopaedic Surgery [address] [facility] [address] [place] [phone] Pamela Snowden, Darrell 06/24/2025 9:[address] [facility] ([facility]) [address] [place] [phone] Erectile dysfunction due to arterial disease 06/24/2025 8:40 AM CDT Office Visit [facility] ([facility]) - [facility] Urology [address] [facility] [address] [place] [address] [place] [address] Kayode Fulton MD Erectile dysfunction due to arterial disease (Primary Dx); Erectile dysfunction, unspecified erectile dysfunction type; Unspecified urinary incontinence 06/24/2025 Results Follow-Up [facility]) [facility] Urology [address] [facility] [address] [place] [address] [place] [address] Rita Padilla, MATEO PSA screen 06/13/2025 6:05 AM CDT - 06/13/2025 11:59 PM CDT Hospital Encounter [facility] Radiology at [facility] [address] [place] [address] Lumbosacral radiculopathy; Spinal stenosis of lumbar region, unspecified whether neurogenic claudication present Discharge Disposition: Discharge to home or self care from Last 3 Months Immunizations Immunization Administration Dates Next Due Influenza, Quad, Adjuvantate d, Intramuscular 09/03/2020 Influenza, Quadrivalent, Hig h Dose, Preservative Free, Intrr 12/31/2023 Influenza, Trivalent, Cell C ulture-based MDCK, Preservative Free, Antibiotic Free, Intramuscular 12/02/2017 Influenza, Trivalent, Preser vative Free, Intramuscular 10/26/2015 Influenza, Unspecified 01/02/2017,10/26/2015,12/2014 Surgical History Surgery Date Site/Laterality Comments NE RPR UMBILICAL HERNIA < 5 YRS REDUCIBLE [...] History Medical History Date Comments Hypertension Cardiomyopathy DVT, lower extremity (HCC) Dyslipidemia Carpal tunnel [...] Mother Evangelina Woodward Colon cancer Mother Evangelina Woodwrad Diabetes Mother Evangelina Woodward Hypertension Mother Evangelina Woodward Breast cancer Sister 1 Nabila Rossi Cancer Sister 1 Nabila Rossi Cancer Sister 2 Josefina Rajendra Lymphoma Sister 2 Josefina Drew Anesthesia problems [...] on file Legal Sex Male 2:33 AM LEATHER SPONGER Gender Identity Male 09/19/2024 10:05 AM CDT Sexual Orientation Straight 09/19/2024 10 :05 AM CDT Obstetrics History Last Filed Vital Signs Vital Sign Reading Time Taken Comments Blood Pressure 122/69 04/11/2025 10:34 AM CDT Pulse 76 04/11/2025 10:34 AM CDT Temperature 36.4 C (97.6 F) 04/11/2025 10:34 AM CDT Respiratory Rate 14 04/11/2025 10:34 AM CDT Oxygen Saturation 93% 04/11/2025 10:34 AM CDT Inhaled Oxygen Concentration - - Weight 97.1 kg (214 lb) 06/13/2025 6:10 AM CDT Height 188 cm (6' 2) 06/13/2025 6:10 AM CDT Body Mass Index 27.48 06/13/2025 6:10 AM CDT Plan of Treatment Health Maintenance Due Date Last Done Comments Albumin Creatinine Ratio, Urine 1955 Colon Cancer Screening-Colonoscopy 1955 Hepatitis C Screening 1955 Dilated Eye Exam 1953 Foot Exam 1953 DTaP/Tdap/Td Vaccine (1 - Tdap) 1964 Hepatitis B Screening 1971 Pneumococcal vaccine 65+ (1 of 2 - PCV) 1972 Well Visit 65+ 2018 Depression Screening 04/23/2020 04/23/2019, 04/23/20 19 Covid-19 Vaccine (3 - Modern a risk series) 12/15/2021 11/17/2021, 02/09/2021, 01/12/2021 Zoster Vaccine (2 of 2) 01/28/2022 12/03/2021 Hemoglobin A1C 04/25/2023 10/26/2022, 03/31, 10/12/2021, Additional history exists Fall Risk Assessment 04/07/2025 04/07/2024, 09/20/2022, 01/18/2022, Additional history exists Influenza Vaccine (#1) 2025 , 09/03/2020, 12/02/2017, Additional history exists Lipid Panel 09/01/2025 09/01/2024, 03/01, 10/26/2022, Additional history exists eGFR 04/11/2026 04/11/2025, 10/01, 04/19/2024, Additional history exists Prostate Cancer Screening-PSA Discontinued , 11/05/2023, 08/22/2017 Goals Goal Patient Goal Type Associated Problems Recent Progress Patient-Stated? Author CCM Chronic Pain Care Plan Chronic Care Management No Dara Stringer APRN Note: Problem: Chronic Pain Goals: 1. Minimize further functional decline 2. Maximize quality of life 3. Control pain Strategies: - Activity/exercise program recommendation - Conservative stepwise pain medicine strategy with multi-disciplinary approach - Recommend healthy lifestyle strategies and compensatory methods as needed Reduce the likelihood of falling Lifestyle No Dara Stringer APRN Note: Below are four things you can [...] on stairs Contact your local community or [facility] for information on exercise, fall prevention programs, or options for improving home safety. Medical Devices Implanted Type Area Housing Management Officer Device Identifier Shelf Expiration Date Model / Serial / Lot Knee Replacement Bilateral: Knee [employer] Encore Suspension Adjustable Knotless Bone Delcambre Self Guided [id number] - [id number] - [id number] Implanted:Qty: 1 on 12/31/2023 by Angelic Judd MD at [facility] N/A: Mouth [employer] [id number] 09/30/2025 [id number] / [id number] / [id number] [employer] Gel Skin Juvederm Ultra Xc Latex Free [id number] - [id number] Implanted:Qty: 1 on 04/07/2024 by Angelic Judd MD at [facility] N/A: Pharynx [employer] [id number] 10/04/2024 [id number] / / [id number] Description:Posterior wall Procedures Procedure Name Priority Date/Time Associated Diagnosis Comments PSA SCREEN Routine 06/24/2025 9:10 AM CDT Erectile dysfunction due to arterial disease MEASURE POST VOID RESIDUAL Routine 06/24/2025 8:32 AM CDT Erectile dysfunction, unspecified erectile dysfunction type MRI LUMBAR SPINE WO CONTRAST Schedule Routine, Read Routine (OP Routine) 06/13/2025 6:55 AM CDT Lumbosacral radiculopathy Spinal stenosis of lumbar region, unspecified whether neurogenic claudication present EGFR Routine 04/11/2025 9:47 AM CDT Renal carcinoma, right (HCC) HEMOGLOBIN A1C Routine 10/26/2022 11:03 AM LEATHER SPONGER LIPID PANEL Routine 10/26/2022 11:03 AM LEATHER SPONGER Coronary artery disease involving [place] coronary artery of [place] heart without angina pectoris Mixed hyperlipidemia Essential hypertension, benign from Last 3 Months or Most Recently Relevant to Health Maintenance Results * PSA screen (06/24/2025 9:10 AM CDT) PSA-Total 3.21 <=6.20 ng/mL Comment: Interpretive Data AGE SEX REFERENCE INTERVAL [...] Current interpretive data last revised 22. Blood 06/24/2025 9:10 AM CDT 06/24/2025 9:46 AM CDT us Kayode Fulton MD LAB BLOOD ORDERABLES Suzanna john paul Result [facility] Department [place] [address] * Measure post void residual (06/24/2025 8:32 AM CDT) Narrative Ethel Jensen CMA - 06/24/2025 8:32 AM CDT Measurement of post-voiding residual urine and/or bladder capacity by ultrasound, non-imaging. PVR = 8 ML Ethel Jensen CMA us Kayode Fulton MD NURSING ASSESSMENTS Final Result * MRI Lumbar Spine WO Contrast (06/13/2025 6:55 AM CDT) Anatomical Region Laterality Modality Spine N/A Magnetic Resonan ce 06/13/2025 11:5 5 AM CDT Impressions 06/13/2025 12:00 PM CDT 1. Multilevel up to moderate degenerative changes of the lumbar spine with multiple levels of moderate neuroforaminal stenosis as described above. No high-grade canal stenosis. Overall the degenerative changes are slightly progressed compared to 08/24/2021. 2. Modic type I endplate degenerative changes at T12-L1 and L4-L5, new at T12-L1 and not significantly changed at L4-L5 compared to 08/24/2021. Dictated by: Humza Faust MD The radiology attending physician has personally reviewed this study, and had reviewed and/or edited this written report and agrees with it. Electronically signed by: Denzel Mixon M.D, PHD Narrative 06/13/2025 12:00 PM CDT EXAMINATION: Magnetic resonance imaging (MRI) of the lumbar spine without contrast HISTORY: Lumbar radiculopathy, radiation to left buttocks and left thigh TECHNIQUE: Multiplanar multi-weighted MRI of the lumbar spine was performed without intravenous contrast using the standard protocol. COMPARISON: Outside facility MRI lumbar spine 08/24/2021 FINDINGS: The alignment of the lumbar spine is normal. Marrow edema along the anterior T12-L1 endplates with disc edema, favored to represent Modic type I endplate degenerative changes. Marrow edema along the L4-L5 endplates with mild disc edema. Overall the marrow edema is similar in appearance to the prior examination with findings favored to also represent Modic type I endplate degenerative changes. There are no compression fractures. The conus medullaris terminates at the level of L1. The distal spinal cord signal intensity is normal. There are no annular fissures identified. L1-L2: Disc bulge. There is mild facet arthropathy. There is moderate left neuroforaminal stenosis. There is no spinal canal stenosis. L2-L3: Disc bulge. There is mild facet arthropathy. There is mild left neuroforaminal stenosis. There is no spinal canal stenosis. L3-L4: Disc bulge slightly asymmetric to the right. Ligamentum flavum infolding. There is moderate facet arthropathy. There is moderate bilateral neuroforaminal stenosis. There is mild spinal canal stenosis. L4-L5: Disc bulge. There is moderate facet arthropathy. There is moderate bilateral neuroforaminal stenosis. There is no spinal canal stenosis. L5-S1: Disc bulge asymmetric to the right. There is moderate facet arthropathy. There is moderate right and mild left neuroforaminal stenosis. There is no spinal canal stenosis. Left renal cyst. The right kidney is absent in this patient is status post right nephrectomy. Procedure Note Denzel Mixon MD PhD - 06/13/2025 EXAMINATION: Magnetic resonance imaging (MRI) of the lumbar spine without contrast HISTORY: Lumbar radiculopathy, radiation to left buttocks and left thigh TECHNIQUE: Multiplanar multi-weighted MRI of the lumbar spine was performed without intravenous contrast using the standard protocol. COMPARISON: Outside facility MRI lumbar spine 08/24/2021 FINDINGS: The alignment of the lumbar spine is normal. Marrow edema along the anterior T12-L1 endplates with disc edema, favored to represent Modic type I endplate degenerative changes. Marrow edema along the L4-L5 endplates with mild disc edema. Overall the marrow edema is similar in appearance to the prior examination with findings favored to also represent Modic type I endplate degenerative changes. There are no compression fractures. The conus medullaris terminates at the level of L1. The distal spinal cord signal intensity is normal. There are no annular fissures identified. L1-L2: Disc bulge. There is mild facet arthropathy. There is moderate left neuroforaminal stenosis. There is no spinal canal stenosis. L2-L3: Disc bulge. There is mild facet arthropathy. There is mild left neuroforaminal stenosis. There is no spinal canal stenosis. L3-L4: Disc bulge slightly asymmetric to the right. Ligamentum flavum infolding. There is moderate facet arthropathy. There is moderate bilateral neuroforaminal stenosis. There is mild spinal canal stenosis. L4-L5: Disc bulge. There is moderate facet arthropathy. There is moderate bilateral neuroforaminal stenosis. There is no spinal canal stenosis. L5-S1: Disc bulge asymmetric to the right. There is moderate facet arthropathy. There is moderate right and mild left neuroforaminal stenosis. There is no spinal canal stenosis. Left renal cyst. The right kidney is absent in this patient is status post right nephrectomy. IMPRESSION: 1. Multilevel up to moderate degenerative changes of the lumbar spine with multiple levels of moderate neuroforaminal stenosis as described above. No high-grade canal stenosis. Overall the degenerative changes are slightly progressed compared to 08/24/2021. 2. Modic type I endplate degenerative changes at T12-L1 and L4-L5, new at T12-L1 and not significantly changed at L4-L5 compared to 08/24/2021. Dictated by: Humza Faust MD The radiology attending physician has personally reviewed this study, and had reviewed and/or edited this written report and agrees with it. Electronically signed by: Denzel Mixon M.D, PHD us Jerry Cristobal MD IMG MRI PROCEDURE S Final Result * (ABNORMAL) eGFR (04/11/2025 9:47 AM CDT) eGFR 44(L) >=60 mL/min/1. 73 m2 Comment: Interpretive Data Reference Interval Normal >/= 90 mL/min/1.73m2 Mildly decreased* 60 - 89 mL/min/1.73m2 Mildly to moderately decreased 45 - 59 mL/min/1.73m2 Moderately to severely decreased 30 - 44 mL/min/1.73m2 Severely decreased 15 - 29 mL/min/1.73m2 Kidney Failure < 15 mL/min/1.73m2 *Relative to young adult level Estimated glomerular filtration rate is determined by the 2020 CKD-EPI equation recommended by the National Kidney Foundation (A Unifying Approach to GFR Estimation: Recommendations of the NKF-ASK Task Force on Reassessing the Inclusion of Race in Diagnosing Kidney Disease, JASN 2020). The CKD-EPI equation should not be used for patients with unstable renal function and has not been validated in children and those over 70. Current interpretive data was last reviewed 2021. Blood 04/11/2025 9:47 AM CDT 04/11/2025 9:47 AM CDT Nakul Roland MD LAB BLOOD ORDERABLES Final Result [facility] Department [place] [address] * (ABNORMAL) Hemoglobin A1c (10/26/2022 11:03 AM LEATHER SPONGER) Hgb A1C 6.7(H) 4.0 - 5.6 % [facility] Estimated Average Glucose 146 mg/dL [facility] Comment: The ADA recommends reporting an estimated Average Glucose (eAG) with all Hemoglobin A1c results using the equation derived from a study of 507 normal and diabetic adults. Minority populations were underrepresented and children were not included. (Diabetes Care 31:9841-9379, 2008). The eAG is not equivalent to a fasting glucose. Blood 10/26/2022 11:0 3 AM LEATHER SPONGER 10/26/2022 11:19 AM LEATHER SPONGER [place] [facility] LAB BLOOD ORDERA BLES Final Result [facility] [address] [facility] Department [place] [address] * (ABNORMAL) Lipid panel (10/26/2022 11:03 AM LEATHER SPONGER) Cholesterol 145 30 - 199 mg/dL ALISIA Comment: Interpretive Data Ages < or = 19 years Acceptable: <170 mg/dL Borderline high: 170-199 mg/dL High: >or= 200 mg/dL Ages > or = 20 years Desirable: <200 mg/dL Borderline high: 200-239 mg/dL High: >or= 240 mg/dL Literature References: 1. Expert Panel on Integrated Guidelines for Cardiovascular Health and Risk Reduction in Children and Adolescents. Pediatrics 2011;128:S213 2. NCEP Expert Panel. Circulation 2004;110:227 Current Interpretive Data was last revised on 2018. Triglycerides 186(H) <=149 mg/dL ALISIA Comment: Interpretive Data Ages < or = 9 years Acceptable: <75 mg/dL Borderline high: 75-99 mg/dL High: >or= 100 mg/dL Ages 10 to 20 years Acceptable: <90 mg/dL Borderline high: 90-129 mg/dL High: >or= 130 mg/dL Ages > or = 20 years Desirable: <150 mg/dL Borderline high: 150-199 mg/dL High: 200-499 mg/dL Very high: >or= 499 mg/dL Literature References: 1. Expert Panel on Integrated Guidelines for Cardiovascular Health and Risk Reduction in Children and Adolescents. Pediatrics 2011;128:S213 2. NCEP Expert Panel. Circulation 2004;110:227 Current Interpretive Data was last revised on 2018. HDL 40 >=40 mg/dL ALISIA Comment: Interpretive Data Ages < or = 19 years Acceptable: >45 mg/dL Borderline low: 40-45 mg/dL Low: <40 mg/dL Ages > or = 20 years Desirable: >or= 60 mg/dL Low: <40 mg/dL Literature References: 1. Expert Panel on Integrated Guidelines for Cardiovascular Health and Risk Reduction in Children and Adolescents. Pediatrics 2011;128:S213 2. NCEP Expert Panel. Circulation 2004;110:227 Current Interpretive Data was last revised on 2018. LDL, calculated 68 <=129 mg/dL [facility] DELA [facility] Comment: Interpretive Data Ages < or = 19 years Acceptable: <110 mg/dL Borderline high: 110-129 mg/dL High: >or= 130 mg/dL Ages > or = 20 years Optimal: <100 mg/dL Near optimal: 100-129 mg/dL Borderline high: 130-159 mg/dL High: >160 mg/dL Literature References: 1. Expert Panel on Integrated Guidelines for Cardiovascular Health and Risk Reduction in Children and Adolescents. Pediatrics 2011;128:S213 2. NCEP Expert Panel. Circulation 2004;110:227 Current Interpretive Data was last revised on 2018. Non-HDL Cholesterol 105 mg/dL [facility] DELA [facility] Comment: Interpretive Data Ages < or = 19 years Acceptable: <120 mg/dL Borderline high: 120-144 mg/dL High: >145 mg/dL Ages > or = 20 years When triglycerides are >200 mg/dL, Non-HDL cholesterol is a secondary target of therapy with treatment goals that are 30 mg/dL greater than the LDL cholesterol target. Literature References: 1. Expert Panel on Integrated Guidelines for Cardiovascular Health and Risk Reduction in Children and Adolescents. Pediatrics 2011;128:S213 2. NCEP Expert Panel. Circulation 2004;110:227 Current Interpretive Data was last revised on 2018. Chol/HDL ratio 4 [facility] Blood 10/26/2022 11:0 3 AM LEATHER SPONGER 10/26/2022 11:19 AM LEATHER SPONGER us Jose Guadalupe Sweeney MD LAB BLOOD ORDERABLES Final Result [facility] [address] [facility] Department [place] [address] from Last 3 Months or Most Recently Relevant to Health Maintenance Insurance SPECIAL CONTRACT ARRANGEMENT Member Subscriber Plan / Payer (Ef fective 2019-Present) Name:Will Woodward Relation to Subscriber:Self Name:Will Woodward Payer ID:[id number] Group ID:Not on file Type:OTHER Address: [address] [place] [id number] MEDICARE [facility] MEDICARE MEDICARE MEDICARE [facility] MEDICARE Advance Directives For more information, please contact: [phone] * Full Code (Latest Code Status on [...] 1:17 PM 05/01/2020 8:21 PM Care Teams Sport Psychologist Relationship Specialty Start Date End Date Park Cunha PA PCP - General 02/28/17 Jose Guadalupe Sweeney MD [address] [place] [address] Provider Service Representative Cardiology 02/23/21
--- OUTSIDE RECORDS SUMMARY | 2025-09-12 13:30 | XMS_ITS | Encounter Summary ---
Author Organization [facility] Facility Care Team Providers Care Physicians Assistant Name Role Phone Park Cunha Primary Care Pr ovider Park Cunha Primary Care Pr ovider Park Cunha Primary Care Pr ovider Isaiah Rendon MD Unavailable [phone] Jose Guadalupe Sweenye MD Unavailable [phone] Encounter Details Date Type Department Care Team (Latest Contact Info) Description 06/21/2016 Orders Only [facility] CLINCONV ProviderSouleymane MD [address] [place] [address] Social History Tobacco Use Types Packs/Day Years Used Date Smoking Tobacco: Never Assessed Sex and Gender Information Value Date Recorded Sex Assigned at Not on file Legal Sex Male 2:33 AM TEST DESK TROUBLE LOCATOR Gender Identity Male 09/19/2024 10:05 AM CDT [...] documented as of this encounter Care Teams Physicians Assistant Relationship Specialty Start Date End Date Park Cunha PA PCP - General 02/28/17 Park Cunha PA PCP - General 01/14/17 02/27/17 Park Cunha PA PCP - General 01/07/17 01/13/17 Isaiah Rendon MD Radiation Oncologist Radiation Oncology 02/21/20 Jose Guadalupe Sweeney MD [address] [place] [address] Hardware Installation Coordinator Cardiology 02/23/21 documented as of this encounter
--- OUTSIDE RECORDS SUMMARY | 2025-09-12 13:30 | XMS_ITS ---
Author Organization [facility] Address [address] [place] [address] Care Team Providers Care Post Exchange Manager Name Role Phone Park Cunha Primary Care Pr ovider Jose Guadalupe Sweeney MD Unavailable [phone] Active Problems Problem Noted Date Diagnosed Date [...] 01/17/2023 Assessment & Plan (01/17/2023 10:16 AM LONGWALL SHEARER OPERATOR): On the event monitor patient had 2 [...] 11/28/2022 Assessment & Plan (01/17/2023 10:17 AM LONGWALL SHEARER OPERATOR): No further syncope noted. It appears that [...] 04/19/2022 Assessment & Plan (01/17/2023 10:17 AM LONGWALL SHEARER OPERATOR): Blood pressure is well controlled. Continue low-salt diet which I discussed with him. Continue amlodipine and metoprolol. Mixed hyperlipidemia 10/19/2021 Assessment & Plan (01/17/2023 10:17 AM LONGWALL SHEARER OPERATOR): Lipid panel looks good along with LFTs. Continue Crestor and heart healthy diet which I discussed with patient. I will check his Chem 12, magnesium and lipids prior to next appointment. Lumbosacral radiculopathy 09/06/2021 Obstructive sleep apnea syndrome 05/18/2021 Orthostatic dizziness 11/10/2020 Gastroesophageal reflux disease without esophagi tis 07/14/2020 Overview (07/14/2020): Added automatically from request for surgery [id number] Dysphagia 07/14/2020 Overview (07/14/2020): Added automatically from request for surgery [id number] Gastric ulcer 07/14/2020 Overview (07/14/2020): Added automatically from request for surgery [id number] Oropharyngeal dysphagia 07/14/2020 Overview (07/14/2020): Added automatically from request for surgery [id number] GERD (gastroesophageal reflux disease) 0 Bilateral lower extremity edema 11/05/2019 Venous insufficiency 10/01/2019 Overview (10/01/2019): Added automatically from request for surgery [id number] Precordial chest pain 03/12/2019 Metastatic carcinoma to lung, left 07/28/2018 Malignant (primary) neoplasm, unspecified 2017 Polyneuropathy in diseases classified elsewhere 12/19/2017 Erectile disorder due to medical condition in ma le 07/18/2017 Disorder of cardiac function 05/14/2017 Cardiomyopathy 05/02/2017 Overview (09/02/2022): At [facility] his echo showed a visually estimated [...] 07/10/2016 Assessment & Plan (01/17/2023 10:18 AM LONGWALL SHEARER OPERATOR): No clinical angina noted. Continue aspirin. Encouraged [...] Automatic Entry Manual Entr y Fluoro Time 17.418 minutes 10.918 minutes 6.5 minutes Air kerma at the reference point (Ka,r) 1,622.66 mGy 1 45.66 mGy 1,477 mGy DLP 17,997 mGycm 17,997 mGycm 0 mGycm DAP 90.5 Gy-cm2 0 Gy-cm2 90.5 Gy-cm2 Resolved Problems Problem Noted Date Diagnosed Date Resolved Date Dyslipidemia 03/12/2019 10/19/2021 Essential hypertension 03/12/201904/19
--- OUTSIDE RECORDS SUMMARY | 2025-09-12 13:30 | XMS_ITS | Encounter Summary ---
Author Organization [facility] Facility Care Team Providers Care Client Portfolio Manager Name Role Phone Park Cunha Primary Care Pr ovider Park Cunha Primary Care Pr ovider Park Cunha Primary Care Pr ovider Isaiah Rendon MD Unavailable [phone] Jose Guadalupe Sweeney MD Unavailable [phone] Encounter Details Date Type Department Care Team (Latest Contact Info) Description 05/24/2016 Orders Only [facility] CLINCONV ProviderSouleymane MD [address] [place] [address] Social History Tobacco Use Types Packs/Day Years Used Date Smoking Tobacco: Never Assessed Sex and Gender Information Value Date Recorded Sex Assigned at Not on file 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
--- OUTSIDE RECORDS SUMMARY | 2025-09-12 13:31 | XMS_ITS | Encounter Summary ---
Author Organization [facility] Address [address] [place] [address] Care Team Providers Care Hand Umbrella Tipper Name Role Phone Alex Crum MD Primary Care Provider [phone] Park Neff Primary Care Pr ovider Encounter Details Date Type Department Care Team (Late st Contact Info) Description 08/27/2022 Lab Requisition [facility] [address] [place] [address] Nick Morrison MD [address] [address] Social History Tobacco Use Types Packs/Day Years [...] AM CDT) Case Report Dermatopathology Report Case: [id number] Authorizing Provider: Nick Morrison MD Collected: 08/23/2022 12:00 AM Ordering Location: [facility] Received: 08/27/2022 08:54 AM Pathologist: Linda Jones MD Specimens: A) - Skin, left alar crease B) - Skin, right nose tip 1:00 PM T DERMATOPATHOLOGY LABORATORY Final Diagnosis Specimen A. SKIN, left alar crease: BASAL CELL CARCINOMA, NODULAR TYPE (C44.311) (see microscopic description) Specimen B. 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 BCCA path #[id number]. B:Dewey Hyperplatia path #[id number]. 1:00 PM CDT DERMATOPATHOLOGY LABORATORY Gross Description Specimen A: Received [...] measuring 4x3x1 mm. Jar 0. 1:00 PM CDT DERMATOPATHOLOGY LABORATORY Microscopic Description Specimen A. SKIN, [...] sections were obtained and reviewed. 1:00 PM CDT DERMATOPATHOLOGY LABORATORY Disclaimer An external and internal positive and negative controls are appropriate for the histochemical, immunohistochemical and immunofluorescence stain(s) in this case (if any), except where stated explicitly. The performance characteristics of the stain(s) cited in this report were developed and its performance characteristic determined by the Dermatopathology Laboratory at [facility] directed by Dr. Dann Florian. These tests need not be, and therefore are not, approved by the [place] Food and Drug Administration. The tests are used for clinical purposes. Billing Codes Specimen Charges Stain Charges 77973 64546 1 1 61104 92048 1 1 2 1:00 PM CDT DERMATOPATHOLOGY LABORATORY Embedded Images 2 1:00 PM CDT DERMATOPATHOLOGY LABORATORY Pathology/Cytology TISSUE SPECIMEN FROM SKIN / Unknown 08/23/2022 08/27/2022 8:54 AM CDT Miscellaneous samples (specimen) TISSUE SPECIMEN FROM SKIN / Unknown 08/23/2022 08/27/2022 8:54 AM CDT Nick Morrison MD LAB - PATHOLOGY/CYTOLOGY ORDER LYNSEY Final Result DERMATOPATHOLOGY LABORATORY [facility] - Department of Dermatology [facility] [address] [place] [address] [phone] documented in this encounter Visit Diagnoses Not on filedocumented in this encounter Care Teams Hand Umbrella Tipper Relationship Specialty Start Date End Date Alex Crum MD [address] [place] [id number] PCP - General 08/27/22 11/19/22 Park Neff PA [address] [place] [address] PCP - General 11/20/22 documented as of this encounter
--- OUTSIDE RECORDS SUMMARY | 2025-09-12 13:31 | XMS_ITS | Encounter Summary ---
Author Organization [facility] Address [address] [place] [address] Care Team Providers Care Sleep Technologist Name Role Phone Park Neff Primary Care Pr ovider Encounter Details Date Type Department Care Team (Late st Contact Info) Description 07/25/2023 Lab Requisition [facility] [address] [place] [id number] Nick Morrison MD [address] [place] [address] Social History Tobacco Use Types Packs/Day Years [...] AM CDT) Case Report Dermatopathology Report Case: [id number] Authorizing Provider: Nick Morrison MD Collected: 07/24/2023 12:00 AM Ordering Location: [facility] Received: 07/25/2023 09:57 AM Pathologist: Mala Salgado MD Specimen: Skin, left ing fold 08/28/202 3 3:31 PM CDT DERMATOPATHOLOGY LABORATORY Final Diagnosis Specimen A. SKIN, left ing fold: PIGMENTED SEBORRHEIC KERATOSIS (L82.1) 3 3:31 PM CDT DERMATOPATHOLOGY LABORATORY at 1531 CDT Clinical History SK vs MM. Path#[id number] 3:31 PM CDT DERMATOPATHOLOGY LABORATORY Gross Description Specimen A: Received is one formalin filled container labeled with the patient's name and designated left ing fold. The specimen consists of a shave biopsy (3 pieces) measuring 27x7x2 mm, in aggregate. Jar 0. 3 3:31 PM CDT DERMATOPATHOLOGY LABORATORY Microscopic Description Specimen [...] characteristic determined by the Dermatopathology Laboratory at [facility], directed by Dr. Dann Florian. These tests need not be, and therefore are not, approved by the [place] Food and Drug Administration. The tests are used for clinical purposes. Billing Codes Specimen Charges Stain Charges 60078 1 3 3:31 PM CDT DERMATOPATHOLOGY LABORATORY Embedded Images 3 3:31 PM CDT DERMATOPATHOLOGY LABORATORY Pathology/Cytolog y TISSUE SPECIMEN FROM SKIN / Unknown 07/24/2023 07/25/2023 9:57 AM CDT us Nick Morrison MD LAB - PATHOLOGY/CYTOLOGY ORDER LYNSEY Final Result DERMATOPATHOLOGY LABORATORY [facility] - Department of Dermatology [address] [phone] documented in this encounter Visit Diagnoses Not on filedocumented in this encounter Care Teams Sleep Technologist Relationship Specialty Start Date End Date Park Neff PA [address] [place] [address] PCP - General 11/20/22 documented as of this encounter
--- OUTSIDE RECORDS SUMMARY | 2025-09-12 13:31 | XMS_ITS | Encounter Summary ---
Author Organization [facility] Facility Care Team Providers Care Silo Filler Name Role Phone Park Cunha Primary Care Pr ovider Isaiah Rendon MD Unavailable [phone] Jose Guadalupe Sweeney MD Unavailable [phone] Encounter Details Date Type Department Care Team (Latest Contact Info) Description 04/16/2017 Orders Only [facility] CLINCONV ProviderSouleymane MD [address] [place] [address] Social History Tobacco Use Types Packs/Day Years Used Date Smoking Tobacco: Never Assessed Sex and Gender Information Value Date Recorded Sex Assigned at Not on file 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 [place] [address] Client Support Consultant Cardiology 02/23/21 documented as of this encounter
--- OUTSIDE RECORDS SUMMARY | 2025-09-12 13:31 | XMS_ITS | Clinical Summary ---
Author Organization [facility] Address [address] [place] [address] Care Team Providers Care Quill Reamer Name Role Phone Park Neff Primary Care Pr ovider Source Comments [facility],non-owned Affiliates and Associated Physician Practices is amultiple site organization consisting of ambulatory clinics and hospital sitesin [place], [place], [place] and [place]. This disclosure is being madepursuant to the Care Everywhere program and may not contain all information available regarding this patient. Last updated 18.[facility] Social History Tobacco Use Types Packs/Day Years [...] 2003 ZOSTER VACCINE (1 of 2) 2003 DEPRESSION SCREENING 12/01/2024 COVID-19 VACCINE (2023-2 5 season) 2025 INFLUENZA VACCINE (#1) 2025 Respiratory Syncytial Virus (RSV) Vaccine Pt: [...] age to complete this topic Insurance [facility] Care Teams Quill Reamer Relationship Specialty Start Date End Date Park Neff PA [address] [place] [address] PCP - General 11/20/22
[2025-09-12 13:40] LABS: Free T4 Free Thyroxine 1.12 ng/dL (0.78-2.19)
[2025-09-12 13:41] LABS: MALB Creatinine Ratio 23.4 mg/g (0-30)
[2025-09-12 14:04] LABS: Prostate Specific Antigen 3.9 ng/mL (< OR = 4.0); Thyroid Stimulating Hormone 1.510 uIU/mL (0.465-4.680)
== END 2025-09-12 12:25 | disposition home or self-care (01) ==
PROVIDERS: PCP Physician Assistant; Visit Provider Physician Assistant
DX: Z12.5 Encounter for screening for malignant neoplasm of prostate (principal); E13.22 Other specified diabetes mellitus with diabetic chronic kidney disease; I12.9 Hypertensive chronic kidney disease with stage 1 through stage 4 chronic kidney disease, or unspecified chronic kidney disease; N18.31 Chronic kidney disease, stage 3a; Z79.4 Long term (current) use of insulin; Z79.899 Other long term (current) drug therapy
CPT/HCPCS: 36415; 80048; 80076; 82043; 83036; 84153; 84439; 84443; 85025; G0103